=== PATIENT | male | born 1955 | race Hispanic/Latino ===

== ENCOUNTER 2019-04-15 19:19 | Inpatient (IN) | payer MEDICARE, OTHER ==
[~2019-04-15] VITALS: Ht 167.6 cm; Wt 92.1 kg
[2019-04-15 20:31] LABS: BASOPHILS # (AUTO) 0.1 (0.0-0.1); BASOPHILS % 0.9 % (0.0-1.0); EOSINOPHILS # (AUTO) 1.3 (0.0-0.4); EOSINOPHILS % 16.8 % (0.0-6.0); HEMATOCRIT 31.1 % (38.2-49.6); HEMOGLOBIN 10.3 g/dL (14.0-18.0); LYMPHOCYTES # (AUTO) 1.2 (1.0-3.2); LYMPHOCYTES % 15.2 % (18.0-39.1); MEAN CORPUSCULAR HEMOGLOBIN 31.4 pg (28-32); MEAN CORPUSCULAR HGB CONC 33.1 g/dL (31-35); MEAN CORPUSCULAR VOLUME 94.8 fL (81-99); MONOCYTES # (AUTO) 0.7 (0.2-0.8); MONOCYTES % 8.8 % (4.4-11.3); NEUTROPHILS # (AUTO) 4.6 (2.1-6.9); PLATELET COUNT 166 x10e3/uL (140-360); RED BLOOD COUNT 3.28 x10e6/uL (4.3-5.7); RED CELL DISTRIBUTION WIDTH 16.8 % (11.7-14.4)
[2019-04-15 21:15] LABS: ALBUMIN 3.5 g/dL (3.5-5.0); ALBUMIN/GLOBULIN RATIO 0.8 (0.8-2.0); ANION GAP 16.7 mmol/L (8-16); CALCIUM 9.2 mg/dL (8.4-10.2); CREATININE, SERUM 4.08 mg/dL (0.72-1.25)
[2019-04-15 21:18] LABS: POTASSIUM 5.7 mmol/L (3.5-5.1)
[2019-04-15] MEDS ORDERED: DEXTROSE 50% SYRINGE 50 ML IV STA (21:37)
[2019-04-15] MEDS ORDERED: INSULIN REGULAR, HUMAN 100 UNIT/1 ML 3ML VIAL IV ONE (21:45)
[2019-04-15] MEDS ORDERED: SOD POLYSTYRENE SULFONATE SUSP 15 GM/60 ML BTL PO ONE (21:45)
[2019-04-15] MEDS ORDERED: ASPIR 8181 MG PO (21:48)
[2019-04-15] MEDS ORDERED: ALLOPURINOL100 MG PO (21:49)
[2019-04-15] MEDS ORDERED: ARICEPT5 MG PO (21:49)
[2019-04-15] MEDS ORDERED: GABAPENTIN100 MG PO (21:49)
[2019-04-15] MEDS ORDERED: CALCITRIOL0.25 MCG PO (21:49)
[2019-04-15] MEDS ORDERED: LACTULOSE20 GM/30 M PO (21:50)
[2019-04-15] MEDS ORDERED: LEVEMIR100 UNIT/1 SC (21:50)
[2019-04-15] MEDS ORDERED: METOPROLOL SUCC50 MG PO (21:51)
[2019-04-15] MEDS ORDERED: NIFEDIPINE ER30 M1 PO (21:51)
[2019-04-15] MEDS ORDERED: VITAMIN E400 UNIT PO (21:52)
[2019-04-15] MEDS ORDERED: PANTOPRAZOLE SO40 MG PO (21:52)
[2019-04-15] MEDS ORDERED: NEPHRO-VITE TABL1 EA PO (21:52)
[2019-04-15] MEDS ORDERED: PRAVASTATIN SOD40 MG PO (21:53)
[2019-04-15] MEDS ORDERED: ULTRAM50 MG PO (21:54)
[2019-04-15] MEDS ORDERED: LISINOPRIL10 MG PO (21:54)
[2019-04-15] MEDS ORDERED: LASIX40 MG PO (21:55)
[2019-04-15] MEDS ORDERED: ALDACTONE25 MG PO (21:56)
[2019-04-15] MEDS ORDERED: METOLAZONE5 MG PO (21:56)
[2019-04-15] MEDS ORDERED: SODIUM BICARBONATE 8.4% 50 ML VIAL IV STA ×2 (22:00→23:12)
[2019-04-15 22:06] LABS: CREATINE KINASE MB 2.7 ng/mL (0-5.0)
[2019-04-15] MEDS ORDERED: SODIUM BICARBONATE 8.4% SYRING 50 ML ONE (22:06)
[2019-04-15] MEDS ORDERED: INSULIN REGULAR, HUMAN 100 UNIT/1 ML 3ML VIAL ONE (22:08)
[2019-04-15] MEDS ORDERED: SODIUM BICARBONATE 8.4% INJ 50 ML SYR IV STA (22:19)
--- NOTE | 2019-04-15 22:19 | NUR ---
spoke with dr pham about sodium bicarb order for pts hyperkalemia, new orders rec'd
--- OUTSIDE RECORDS SUMMARY | 2019-04-15 22:19 | XMS REPORT | Continuity of Care Document ---
Author Author [facility] Organization [facility] Address Unknown Phone Unavailable Care Team Providers Care Emotional Support Teacher Name Role Phone MD Ethan, Meseret VARGAS Unavailable Insurance Providers Payer name Policy type / Coverage type Policy ID Covered republican ID Policy Stone [employer] [place]IC[place] [employer] [place] [employer] [place] [employer] [place] [place]) [employer] [place] [employer] [place] [employer] [place] [employer] [place] [employer] [place] [employer] [place] [employer] [place] Encounters Encounter Performer Location Date Office Visit Meseret Long MD [facility] December 08, 2013 Problems Problem Effective Dates Problem Status DIAB W/O MENTION COMP TYPE II/UNS TYPE UNCNTRL Active OTHER AND UNSPECIFIED HYPERLIPIDEMIA Active CAD Active GERD Active DIABETES MELLITUS, TYPE II, UNCONTROLLED, WITH COMPLICATIONS Jun 21, 2013 Active HYPERTENSION, BENIGN ESSENTIAL Jun 21, 2013 Active CORONARY ATHEROSCLEROSIS, ARTERY BYPASS GRAFT Jun 21, 2013 Active CYSTITIS, ACUTE Jun 21, 2013 Active DYSPEPSIA, CHRONIC Jun 21, 2013 Active SCREENING, COLON CANCER Jun 21, 2013 Active SEXUALLY TRANSMITTED DISEASE, EXPOSURE TO Jun 21, 2013 Active HYPERTROPHY PROSTATE W/O UR OBST & OTH LUTS Jun 21, 2013 Active PERIPHERAL VASCULAR DISEASE Jun 21, 2013 Active PERS HX NONCOMPLIANCE W/MED TX PRS HAZARDS HLTH Jun 21, 2013 Active PREVENTIVE HEALTH CARE Nov 01, 2013 Active SPECIAL SCREENING 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ATE Nov 01, 2013 Active SCREENING FOR GLAUCOMA Nov 01, 2013 Active BODY MASS INDEX 32.0-32.9 ADULT Nov 01, 2013 Active UPPER RESPIRATORY INFECTION December 08, 2013 Active Procedures Date Description Comments Jun 21, 2013 smoking status never smoker Nov 01, 2013 diabetic foot check yes Medications Medication Instructions Start Date Status GLIPIZIDE-METFORMIN HCL 5-500 MG TABS 2 tablets twice daily Active CLOPIDOGREL BISULFATE 75 MG TABS 1 tablet daily Active METOPROLOL TARTRATE 50 MG TABS 1 tablet daily Active ASPIRIN LOW DOSE 81 MG TABS 1 tablet daily Active OMEPRAZOLE 40 MG CPDR take 1 tab before meals Feb 09, 2013 Active CIPROFLOXACIN HCL 500 MG TABS Take one tablet every 12 hours Jun 21, 2013 Inactive TRAMADOL HCL 50 MG TABS 1 tablets every 6-8 hours as needed Jun 21, 2013 Inactive STRIPS check fs Q/DAY Jul 12, 2013 Active PRAVASTATIN SODIUM 80 MG TABS Take one tablet by mouth once a day Jul 12, 2013 Active LANTUS SOLOSTAR 100 UNIT/ML SOLN apply 30 units at night Nov 01, 2013 Active AMLODIPINE BESY-BENAZEPRIL HCL 10-40 MG CAPS Take one tablet by mouth once a day Nov 29, 2013 Active XYZAL 5 MG TABS Take one tablet by mouth once a day as needed itchiness Jun 21, 2013 Inactive NOVOLOG 100 UNIT/ML SOLN apply 5-10 units before meals Nov 29, 2013 Active BD INSULIN SYRINGE ULTRAFINE 31G X 5/16" 1 ML MISC use as directed Nov 29, 2013 Active CORTISPORIN 3.5-55182-2 SOLN apply 4 gtt in affected ear twice a day for 1 week Nov 29, 2013 Active ZITHROMAX Z-STIVEN 250 MG TABS use as directed December 08, 2013 Active DIABETIC TUSSIN 100 MG/5ML LIQD Take 7 ml every 6 hours as needed for cough December 08, 2013 Active XYZAL 5 MG TABS Take one tablet by mouth once a day as needed runny nose December 08, 2013 Active Immunizations Vaccine Date Status influenza immunization (Flu Vax) has been administered Jun 09, 2012 completed pneumococcal immunization administered Aug 27, 2012 completed influenza immunization (Flu Vax) has been administered Jul 12, 2013 completed Vital Signs Date Description Test Result Jun 21, 2013 respiratory rate E&M - 9279-1 RESP RATE 16 /min Jun 21, 2013 height E&M - 8302-2 HEIGHT 66 in Jun 21, 2013 blood pressure, systolic - 8480-6 BP SYSTOLIC 150 mm Hg Jun 21, 2013 blood pressure, diastolic - 8462-4 BP DIASTOLIC 86 mm Hg Jun 21, 2013 pulse rate E&M - 8867-4 PULSE RATE 70 /min Jun 21, 2013 weight Devyn Greene-9 WEIGHT 206.38 lb Jun 21, 2013 blood pressure, systolic, second observation BP SYS #2 145 mm Hg Jun 21, 2013 blood pressure, diastolic, second observation BP KRISTEL #2 80 mm Hg Jul 12, 2013 weight Devyn - Sergio9 WEIGHT 207.50 lb Jul 12, 2013 respiratory rate E&M - 9279-1 RESP RATE 12 /min Jul 12, 2013 pulse rate E&M - 8867-4 PULSE RATE 67 /min Jul 12, 2013 blood pressure, systolic - 8480-6 BP SYSTOLIC 140 mm Hg Jul 12, 2013 blood pressure, diastolic - 8462-4 BP DIASTOLIC 80 mm Hg Nov 01, 2013 respiratory rate E&M - 9279-1 RESP RATE 16 /min Nov 01, 2013 pulse rate E&M - 8867-4 PULSE RATE 70 /min Nov 01, 2013 blood pressure, systolic - 8480-6 BP SYSTOLIC 148 mm Hg Nov 01, 2013 blood pressure, diastolic - 8462-4 BP DIASTOLIC 84 mm Hg Nov 01, 2013 weight Devyn Ng WEIGHT 202 lb Nov 01, 2013 blood pressure, systolic, second observation BP SYS #2 148 mm Hg Nov 01, 2013 blood pressure, diastolic, second observation BP KRISTEL #2 78 mm Hg Nov 29, 2013 weight Devyn Greene-9 WEIGHT 206 lb Nov 29, 2013 respiratory rate E&M - 9279-1 RESP RATE 16 /min Nov 29, 2013 blood pressure, systolic - 8480-6 BP SYSTOLIC 138 mm Hg Nov 29, 2013 blood pressure, diastolic - 8462-4 BP DIASTOLIC 79 mm Hg Nov 29, 2013 pulse rate E&M - 8867-4 PULSE RATE 65 /min December 08, 2013 temperature E&M TEMPERATURE 98.7 deg f December 08, 2013 respiratory rate E&M - 9279-1 RESP RATE 16 /min December 08, 2013 weight Devyn Greene-9 WEIGHT 205 lb December 08, 2013 blood pressure, systolic - 8480-6 BP SYSTOLIC 140 mm Hg December 08, 2013 blood pressure, diastolic - 8462-4 BP DIASTOLIC 87 mm Hg December 08, 2013 pulse rate E&M - 8867-4 PULSE RATE 75 /min Results Date Description Test Name Value Reference Interpretation Status Nov 03, 2013 hemoglobin, blood HGB 14.9 g/dL 14.0-18.0 Nov 03, 2013 hematocrit, blood HCT 43.9 % 42.0-54.0 Nov 03, 2013 platelet count PLATELETS 200 K/CMM /mm3 133-450 Nov 03, 2013 hemoglobin, blood HGB 14.9 g/dL 14.0-18.0 Nov 03, 2013 hematocrit, blood HCT 43.9 % 42.0-54.0 Nov 03, 2013 platelet count PLATELETS 200 K/CMM /mm3 133-450 Nov 03, 2013 hemoglobin, blood HGB 14.9 g/dL 14.0-18.0 Nov 03, 2013 hematocrit, blood HCT 43.9 % 42.0-54.0 Nov 03, 2013 platelet count PLATELETS 200 K/CMM /mm3 133-450 Nov 03, 2013 hemoglobin, blood HGB 14.9 g/dL 14.0-18.0 Nov 03, 2013 hematocrit, blood HCT 43.9 % 42.0-54.0 Nov 03, 2013 platelet count PLATELETS 200 K/CMM /mm3 133-450 Nov 03, 2013 hemoglobin A1C, blood, as % of total hemoglobin HGBA1C 12.5 % <=5.6 High Nov 03, 2013 thyroid stimulating hormone, serum TSH 0.900 uIU/mL 0.360-3.740 Nov 03, 2013 cholesterol, serum CHOLESTEROL 212 mg/dl <=199 High Nov 03, 2013 triglyceride, serum, fasting TRIGLYCERIDE 173 mg/dl <=149 High Nov 03, 2013 HDL cholesterol, serum HDL 52 mg/dl >=61 Low Nov 03, 2013 sodium, serum SODIUM 135 MEQ/L mmol/L 135-145 Nov 03, 2013 potassium, serum POTASSIUM 4.0 MEQ/L mmol/L 3.5-5.1 Nov 03, 2013 creatinine, serum CREATININE 0.8 mg/dL 0.5-1.4 Nov 03, 2013 urea nitrogen, blood BUN 17 mg/dL 7-22 Nov 03, 2013 urea nitrogen/creatinine ratio, serum BUN/CREAT 21 null 6-25 Nov 03, 2013 albumin, serum ALBUMIN 3.6 g/dL 3.5-5.0 Nov 03, 2013 calcium, serum CALCIUM 8.7 mg/dL 8.5-10.5 Nov 03, 2013 alanine aminotransferase (SGPT), serum SGPT (ALT) 18 U/L 0-65 Nov 03, 2013 aspartate aminotransferase (SGOT), serum SGOT (AST) 10 U/L 0-37 Nov 03, 2013 alkaline phosphatase, serum ALK PHOS 113 U/L 39-136 Nov 03, 2013 prostate specific antigen PSA 0.34 ng/mL 0.00-4.00 Nov 03, 2013 hemoglobin A1C, blood, as % of total hemoglobin HGBA1C 12.5 % <=5.6 High Nov 03, 2013 thyroid stimulating hormone, serum TSH 0.900 uIU/mL 0.360-3.740 Nov 03, 2013 cholesterol, serum CHOLESTEROL 212 mg/dl <=199 High Nov 03, 2013 triglyceride, serum, fasting TRIGLYCERIDE 173 mg/dl <=149 High Nov 03, 2013 HDL cholesterol, serum HDL 52 mg/dl >=61 Low Nov 03, 2013 sodium, serum SODIUM 135 MEQ/L mmol/L 135-145 Nov 03, 2013 potassium, serum POTASSIUM 4.0 MEQ/L mmol/L 3.5-5.1 Nov 03, 2013 creatinine, serum CREATININE 0.8 mg/dL 0.5-1.4 Nov 03, 2013 urea nitrogen, blood BUN 17 mg/dL 7-22 Nov 03, 2013 urea nitrogen/creatinine ratio, serum BUN/CREAT 21 null 6-25 Nov 03, 2013 albumin, serum ALBUMIN 3.6 g/dL 3.5-5.0 Nov 03, 2013 calcium, serum CALCIUM 8.7 mg/dL 8.5-10.5 Nov 03, 2013 alanine aminotransferase (SGPT), serum SGPT (ALT) 18 U/L 0-65 Nov 03, 2013 aspartate aminotransferase (SGOT), serum SGOT (AST) 10 U/L 0-37 Nov 03, 2013 alkaline phosphatase, serum ALK PHOS 113 U/L 39-136 Nov 03, 2013 prostate specific antigen PSA 0.34 ng/mL 0.00-4.00 Nov 03, 2013 hemoglobin A1C, blood, as % of total hemoglobin HGBA1C 12.5 % <=5.6 High Nov 03, 2013 thyroid stimulating hormone, serum TSH 0.900 uIU/mL 0.360-3.740 Nov 03, 2013 cholesterol, serum CHOLESTEROL 212 mg/dl <=199 High Nov 03, 2013 triglyceride, serum, fasting TRIGLYCERIDE 173 mg/dl <=149 High Nov 03, 2013 HDL cholesterol, serum HDL 52 mg/dl >=61 Low Nov 03, 2013 LDL cholesterol, serum LDL 125 mg/dl <=99 High Nov 03, 2013 sodium, serum SODIUM 135 MEQ/L mmol/L 135-145 Nov 03, 2013 potassium, serum POTASSIUM 4.0 MEQ/L mmol/L 3.5-5.1 Nov 03, 2013 creatinine, serum CREATININE 0.8 mg/dL 0.5-1.4 Nov 03, 2013 urea nitrogen, blood BUN 17 mg/dL 7-Nov 03, 2013 urea nitrogen/creatinine ratio, serum BUN/CREAT 21 null -Nov 03, 2013 albumin, serum ALBUMIN 3.6 g/dL 3.5-5.0 Nov 03, 2013 calcium, serum CALCIUM 8.7 mg/dL 8.5-10.5 Nov 03, 2013 alanine aminotransferase (SGPT), serum SGPT (ALT) 18 U/L 0-65 Nov 03, 2013 aspartate aminotransferase (SGOT), serum SGOT (AST) 10 U/L 0-37 Nov 03, 2013 alkaline phosphatase, serum ALK PHOS 113 U/L 39-136 Nov 03, 2013 prostate specific antigen PSA 0.34 ng/mL 0.00-4.00 Oct 10, 2011 occult blood, stool (E&M) HEMOCCULT Done null Jun 23, 2013 hemoglobin A1C, blood, as % of total hemoglobin HGBA1C 12.0 % <=5.6 High Jun 23, 2013 cholesterol, serum CHOLESTEROL 245 mg/dl <=199 High Jun 23, 2013 triglyceride, serum, fasting TRIGLYCERIDE 189 mg/dl <=149 High Jun 23, 2013 HDL cholesterol, serum HDL 47 mg/dl >=61 Low Jun 23, 2013 LDL cholesterol, serum LDL 160 mg/dl <=99 High Jun 23, 2013 sodium, serum SODIUM 136 MEQ/L mmol/L 135-145 Jun 23, 2013 potassium, serum POTASSIUM 4.4 MEQ/L mmol/L 3.5-5.1 Jun 23, 2013 creatinine, serum CREATININE 0.8 mg/dL 0.5-1.4 Jun 23, 2013 urea nitrogen, blood BUN 17 mg/dL 02-28Jun 23, 2013 urea nitrogen/creatinine ratio, serum BUN/CREAT 21 null -Jun 23, 2013 albumin, serum ALBUMIN 4.0 g/dL 3.5-5.0 Jun 23, 2013 calcium, serum CALCIUM 9.6 mg/dL 8.5-10.5 Jun 23, 2013 alanine aminotransferase (SGPT), serum SGPT (ALT) 28 U/L 0-65 Jun 23, 2013 aspartate aminotransferase (SGOT), serum SGOT (AST) 12 U/L 0-37 Jun 23, 2013 alkaline phosphatase, serum ALK PHOS 136 U/L 39-136 Jun 23, 2013 prostate specific antigen PSA 0.49 ng/mL 0.00-4.00 Nov 03, 2013 hemoglobin A1C, blood, as % of total hemoglobin HGBA1C 12.5 % <=5.6 High Nov 03, 2013 thyroid stimulating hormone, serum TSH 0.900 uIU/mL 0.360-3.740 Nov 03, 2013 cholesterol, serum CHOLESTEROL 212 mg/dl <=199 High Nov 03, 2013 triglyceride, serum, fasting TRIGLYCERIDE 173 mg/dl <=149 High Nov 03, 2013 HDL cholesterol, serum HDL 52 mg/dl >=61 Low Nov 03, 2013 LDL cholesterol, serum LDL 125 mg/dl <=99 High Nov 03, 2013 sodium, serum SODIUM 135 MEQ/L mmol/L 135-145 Nov 03, 2013 potassium, serum POTASSIUM 4.0 MEQ/L mmol/L 3.5-5.1 Nov 03, 2013 creatinine, serum CREATININE 0.8 mg/dL 0.5-1.4 Nov 03, 2013 urea nitrogen, blood BUN 17 mg/dL 7-22 Nov 03, 2013 urea nitrogen/creatinine ratio, serum BUN/CREAT 21 null 6-25 Nov 03, 2013 albumin, serum ALBUMIN 3.6 g/dL 3.5-5.0 Nov 03, 2013 calcium, serum CALCIUM 8.7 mg/dL 8.5-10.5 Nov 03, 2013 alanine aminotransferase (SGPT), serum SGPT (ALT) 18 U/L 0-65 Nov 03, 2013 aspartate aminotransferase (SGOT), serum SGOT (AST) 10 U/L 0-37 Nov 03, 2013 alkaline phosphatase, serum ALK PHOS 113 U/L 39-136 Nov 03, 2013 prostate specific antigen PSA 0.34 ng/mL 0.00-4.00 Jun 21, 2013 urine color UA COLOR Light Yellow null Yellow Jun 21, 2013 urine color UA COLOR Light Yellow null Yellow Jun 21, 2013 urine color UA COLOR Light Yellow null Yellow Jun 23, 2013 urine color UA COLOR Yellow null Yellow Jun 23, 2013 rapid plasma reagin antibody, serum RPR Non Reactive null Non Reactive
--- OUTSIDE RECORDS SUMMARY | 2019-04-15 22:19 | XMS REPORT | Continuity of Care Document ---
Author Author [facility] Organization [facility] Address Unknown Phone Unavailable Care Team Providers Care Injection Mold Technician Name Role Phone MD Ethan, Meseret VARGAS [...] Location Date Office Visit Meseret Long MD [facility] Apr 04, 2014 Problems Problem Effective Dates Problem Status DIAB W/O MENTION COMP TYPE II/UNS TYPE UNCNTRL Inactive OTHER AND UNSPECIFIED HYPERLIPIDEMIA Active CAD Active GERD Active DIABETES MELLITUS, TYPE II, UNCONTROLLED, WITH COMPLICATIONS Jun 21, 2013 Active HYPERTENSION, BENIGN ESSENTIAL Jun 21, 2013 Active CORONARY ATHEROSCLEROSIS, ARTERY BYPASS GRAFT Jun 21, 2013 Active CYSTITIS, ACUTE Jun 21, 2013 Inactive DYSPEPSIA, CHRONIC Jun 21, 2013 Active SCREENING, COLON CANCER Jun 21, 2013 Active SEXUALLY TRANSMITTED DISEASE, EXPOSURE TO Jun 21, 2013 Inactive HYPERTROPHY PROSTATE W/O UR OBST & OTH [...] Active UPPER RESPIRATORY INFECTION December 08, 2013 Inactive CHEST PAIN NOS Mar 07, 2014 Inactive CORONARY ATHEROSCLEROSIS, AUTOLOGOUS VEIN BYPASS GRAFT Mar 13, 2014 Active ATHEROSCLEROSIS OF [place] ARTERIES OF THE EXTREMITIES WITH INTERMITTENT CLAUDICATION Mar 13, 2014 Active Procedures Date Description Comments Jun 21, 2013 smoking status never smoker Nov 01, 2013 diabetic foot check yes Mar 07, 2014 smoking status Never smoker Apr 04, 2014 smoking status Never smoker Apr 04, 2014 depression, criteria for diagnosis, step 1 N Apr 04, 2014 depression, criteria for diagnosis, step 2 N Medications Medication Instructions Start Date Status CLOPIDOGREL BISULFATE 75 MG TABS 1 tablet daily Active ASPIRIN [...] once a day Jul 12, 2013 Active AMLODIPINE BESY-BENAZEPRIL HCL 10-40 MG [...] as directed Nov 29, 2013 Active CORTISPORIN 3.5-38606-3 SOLN apply 4 gtt in affected ear twice a day for 1 week Nov 29, 2013 Active GLIPIZIDE-METFORMIN HCL 5-500 MG TABS 2 tablets twice daily December 19, 2013 Active DIABETIC TUSSIN 100 MG/5ML LIQD Take 7 ml every 6 hours as needed for cough December 08, 2013 Inactive ZITHROMAX Z-STIVEN 250 MG TABS use as directed December 08, 2013 Inactive XYZAL 5 MG TABS Take one tablet by mouth once a day as needed runny nose December 08, 2013 Inactive METOPROLOL SUCCINATE ER 100 MG [id number] take one tablet by mouth daily Jan 24, 2014 Active LANTUS SOLOSTAR 100 UNIT/ML SOLN apply 50 units at night Nov 01, 2013 Active BD INSULIN SYRINGE 31G X 5/16" 0.3 ML MISC use as diredted Nov 01, 2013 Active Immunizations Vaccine Date Status influenza immunization (Flu Vax) has been administered Jun 09, 2012 completed pneumococcal immunization administered Aug 27, 2012 completed influenza immunization (Flu Vax) has been administered Jul 12, 2013 completed Vital Signs Date Description Test Result Jun 21, 2013 respiratory rate E&M RESP RATE 16 /min Jun 21, 2013 height E&M HEIGHT 66 in Jun 21, 2013 blood pressure, systolic BP SYSTOLIC 150 mm Hg Jun 21, 2013 blood pressure, diastolic BP DIASTOLIC 86 mm Hg Jun 21, 2013 pulse rate E&M PULSE RATE 70 /min Jun 21, 2013 weight E&M WEIGHT 206.38 lb Jun 21, 2013 blood pressure, systolic, second observation BP SYS #2 145 mm Hg Jun 21, 2013 blood pressure, diastolic, second observation BP KRISTEL #2 80 mm Hg Jul 12, 2013 weight E&M WEIGHT 207.50 lb Jul 12, 2013 respiratory rate E&M RESP RATE 12 /min Jul 12, 2013 pulse rate E&M PULSE RATE 67 /min Jul 12, 2013 blood pressure, systolic BP SYSTOLIC 140 mm Hg Jul 12, 2013 blood pressure, diastolic BP DIASTOLIC 80 mm Hg Nov 01, 2013 respiratory rate E&M RESP RATE 16 /min Nov 01, 2013 pulse rate E&M PULSE RATE 70 /min Nov 01, 2013 blood pressure, systolic BP SYSTOLIC 148 mm Hg Nov 01, 2013 blood pressure, diastolic BP DIASTOLIC 84 mm Hg Nov 01, 2013 weight E&M WEIGHT 202 lb Nov 01, 2013 blood pressure, systolic, second observation BP SYS #2 148 mm Hg Nov 01, 2013 blood pressure, diastolic, second observation BP KRISTEL #2 78 mm Hg Nov 29, 2013 weight E&M WEIGHT 206 lb Nov 29, 2013 respiratory rate E&M RESP RATE 16 /min Nov 29, 2013 blood pressure, systolic BP SYSTOLIC 138 mm Hg Nov 29, 2013 blood pressure, diastolic BP DIASTOLIC 79 mm Hg Nov 29, 2013 pulse rate E&M PULSE RATE 65 /min December 08, 2013 temperature E&M TEMPERATURE 98.7 deg f December 08, 2013 respiratory rate E&M RESP RATE 16 /min December 08, 2013 weight E&M WEIGHT 205 lb December 08, 2013 blood pressure, systolic BP SYSTOLIC 140 mm Hg December 08, 2013 blood pressure, diastolic BP DIASTOLIC 87 mm Hg December 08, 2013 pulse rate E&M PULSE RATE 75 /min Mar 07, 2014 respiratory rate E&M RESP RATE 16 /min Mar 07, 2014 temperature E&M TEMPERATURE 98.1 deg f Mar 07, 2014 weight E&M WEIGHT 210 lb Mar 07, 2014 blood pressure, systolic BP SYSTOLIC 140 mm Hg Mar 07, 2014 blood pressure, diastolic BP DIASTOLIC 87 mm Hg Mar 07, 2014 pulse rate E&M PULSE RATE 90 /min Apr 04, 2014 height E&M HEIGHT 66 in Apr 04, 2014 respiratory rate E&M RESP RATE 16 /min Apr 04, 2014 blood pressure, systolic BP SYSTOLIC 139 mm Hg Apr 04, 2014 blood pressure, diastolic BP DIASTOLIC 82 mm Hg Apr 04, 2014 pulse rate E&M PULSE RATE 62 /min Apr 04, 2014 temperature E&M TEMPERATURE 97.9 deg f Apr 04, 2014 weight E&M WEIGHT 209 lb Results Date Description Test Name Value Reference [...] 2013 cholesterol, serum CHOLESTEROL 212 mg/dl <=199 Nov 03, 2013 triglyceride, serum, fasting TRIGLYCERIDE 173 mg/dl <=149 Nov 03, 2013 HDL cholesterol, serum HDL 52 mg/dl >=61 Low Nov 03, 2013 sodium, serum SODIUM 135 MEQ/L mmol/L 135-145 Nov 03, 2013 potassium, serum POTASSIUM 4.0 MEQ/L mmol/L 3.5-5.1 Nov 03, 2013 creatinine, serum CREATININE 0.8 mg/dL 0.5-1.4 Nov 03, 2013 urea nitrogen, blood BUN 17 mg/dL 02-28Nov 03, 2013 urea nitrogen/creatinine ratio, serum BUN/CREAT [...] 2013 cholesterol, serum CHOLESTEROL 212 mg/dl <=199 Nov 03, 2013 triglyceride, serum, fasting TRIGLYCERIDE 173 mg/dl <=149 High Nov 03, 2013 HDL cholesterol, serum HDL 52 mg/dl >=61 Low Nov 03, 2013 sodium, serum SODIUM 135 MEQ/L mmol/L 135-145 Nov 03, 2013 potassium, serum POTASSIUM 4.0 MEQ/L mmol/L 3.5-5.1 Nov 03, 2013 creatinine, serum CREATININE 0.8 mg/dL 0.5-1.4 Nov 03, 2013 urea nitrogen, blood BUN 17 mg/dL 02-28Nov 03, 2013 urea nitrogen/creatinine ratio, serum BUN/CREAT [...] specific antigen PSA 0.34 ng/mL 0.00-4.00 Jun 23, 2013 hemoglobin A1C, blood, as [...] 2013 urea nitrogen, blood BUN 17 mg/dL -Jun 23, 2013 urea nitrogen/creatinine ratio, serum BUN/CREAT 21 null 6-Jun 23, 2013 albumin, serum ALBUMIN 4.0 g/dL [...] 2013 urea nitrogen, blood BUN 17 mg/dL 02-28Nov 03, 2013 urea nitrogen/creatinine ratio, serum BUN/CREAT 21 null 6-Nov 03, 2013 albumin, serum ALBUMIN 3.6 g/dL 3.5-5.0 Nov 03, 2013 calcium, serum CALCIUM 8.7 mg/dL 8.5-10.5 Nov 03, 2013 alanine aminotransferase (SGPT), serum SGPT (ALT) 18 U/L 0-65 Nov 03, 2013 aspartate aminotransferase (SGOT), serum SGOT (AST) 10 U/L 0-37 Nov 03, 2013 alkaline phosphatase, serum ALK PHOS 113 U/L 39-136 Nov 03, 2013 prostate specific antigen PSA 0.34 ng/mL 0.00-4.00 Mar 07, 2014 hemoglobin A1C, blood, as % of total hemoglobin HGBA1C 12.1 % <=5.6 High Mar 07, 2014 cholesterol, serum CHOLESTEROL 241 mg/dl <=199 High Mar 07, 2014 triglyceride, serum, fasting TRIGLYCERIDE 160 mg/dl <=149 High Mar 07, 2014 HDL cholesterol, serum HDL 59 mg/dl >=61 Low Mar 07, 2014 LDL cholesterol, serum LDL 150 mg/dl <=99 High Mar 07, 2014 sodium, serum SODIUM 138 MEQ/L mmol/L 135-145 Mar 07, 2014 potassium, serum POTASSIUM 3.9 MEQ/L mmol/L 3.5-5.1 Mar 07, 2014 creatinine, serum CREATININE 0.9 mg/dL 0.5-1.4 Mar 07, 2014 urea nitrogen, blood BUN 17 mg/dL 7-Mar 07, 2014 urea nitrogen/creatinine ratio, serum BUN/CREAT 19 null 6-25 Mar 07, 2014 albumin, serum ALBUMIN 3.9 g/dL 3.5-5.0 Mar 07, 2014 calcium, serum CALCIUM 9.2 mg/dL 8.5-10.5 Mar 07, 2014 alanine aminotransferase (SGPT), serum SGPT (ALT) 21 U/L 0-65 Mar 07, 2014 aspartate aminotransferase (SGOT), serum SGOT (AST) 10 U/L 0-37 Mar 07, 2014 alkaline phosphatase, serum ALK PHOS 123 U/L 39-136 Jun 21, 2013 urine color UA COLOR Light Yellow null Yellow Jun 21, 2013 urine color UA COLOR Light Yellow null Yellow Jun 21, 2013 urine color UA COLOR Light Yellow null Yellow Jun 23, 2013 urine color UA COLOR Yellow null Yellow Jun 23, 2013 rapid plasma reagin antibody, serum RPR Non Reactive null Non Reactive Mar 07, 2014 rapid plasma reagin antibody, serum RPR Non Reactive null Non Reactive Oct 10, 2011 occult blood, stool (E&M) HEMOCCULT Done null
--- OUTSIDE RECORDS SUMMARY | 2019-04-15 22:19 | XMS REPORT | Continuity of Care Document ---
Author Author [facility] Organization [facility] Address Unknown Phone Unavailable Care Team Providers Care Systems Project Manager Name Role Phone MD Ethan, Meseret VARGAS Unavailable Insurance Providers Payer name Policy type / Coverage type Policy ID Covered constitution party ID Policy Stone [employer] [place] (MEDICARE REPLACEMENT [...] REPLACEMENT HMO) Encounters Encounter Performer Location Date Lab Report Meseret Long MD [facility] Mar 07, 2014 Problems Problem Effective Dates Problem Status [...] UPPER RESPIRATORY INFECTION December 08, 2013 Active CHEST PAIN NOS Mar 07, 2014 Active Procedures Date Description Comments Jun 21, 2013 smoking status never smoker Nov 01, 2013 diabetic foot check yes Mar 07, 2014 smoking status Never smoker Medications Medication Instructions Start Date Status CLOPIDOGREL [...] as directed Nov 29, 2013 Active CORTISPORIN 3.5-40838-4 SOLN apply 4 gtt in affected ear twice a day for 1 week Nov 29, 2013 Active GLIPIZIDE-METFORMIN HCL 5-500 MG TABS 2 tablets twice daily December 19, 2013 Active METOPROLOL SUCCINATE ER 50 MG [id number] Take one tablet by mouth once a day every 24 hours Jan 24, 2014 Active DIABETIC TUSSIN 100 MG/5ML LIQD Take 7 ml every 6 hours as needed for cough December 08, 2013 Inactive ZITHROMAX Z-STIVEN 250 MG TABS use as directed December 08, 2013 Inactive XYZAL 5 MG TABS Take one tablet by mouth once a day as needed runny nose December 08, 2013 Inactive Immunizations Vaccine Date Status influenza immunization (Flu [...] pulse rate E&M PULSE RATE 90 /min Results Date Description Test Name Value [...] 2013 urea nitrogen, blood BUN 17 mg/dL -Nov 03, 2013 urea nitrogen/creatinine ratio, serum BUN/CREAT [...] 2014 urea nitrogen, blood BUN 17 mg/dL 7-22 Mar 07, 2014 urea nitrogen/creatinine ratio, serum BUN/CREAT [...]
--- OUTSIDE RECORDS SUMMARY | 2019-04-15 22:19 | XMS REPORT | Continuity of Care Document ---
Author Author [facility] Organization [facility] Address Unknown Phone Unavailable Care Team Providers Care Esl Teacher Name Role Phone MD Ethan, Meseret VARGAS Unavailable Insurance Providers Payer name Policy type / Coverage type Policy ID Covered alliance party ID Policy [employer] [place] (MEDICARE [...] Location Date Office Visit Meseret Long MD [facility] Mar 07, 2014 Problems Problem [...] as directed Nov 29, 2013 Active CORTISPORIN [id number] SOLN apply 4 gtt in affected ear twice a day for 1 week Nov 29, 2013 Active GLIPIZIDE-METFORMIN HCL 5-500 MG TABS 2 tablets twice daily December 19, 2013 Active METOPROLOL SUCCINATE ER 50 MG [id number] Take one tablet by mouth once a [...]
--- OUTSIDE RECORDS SUMMARY | 2019-04-15 22:19 | XMS REPORT | Continuity of Care Document ---
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 Name Role Phone [employer] Unavailable Unavailable Problems Problem Status Onset Date Classification Date Reported Comments Source PROSTATE NEOPLASM SCREENING Active 10/13/2014 [facility] 01/11/2015 [facility] DIABETIC NEUROPATHY Active 10/13/2014 Condition 01/11/2015 [facility] BRONCHITIS Inactive 05/12/2014 Condition 01/11/2015 [facility] CORONARY ATHEROSCLEROSIS, AUTOLOGOUS VEIN BYPASS GRAFT Inactive 03/13/2014 Condition 01/11/2015 [facility] ATHEROSCLEROSIS OF [place] ARTERIES OF THE EXTREMITIES WITH INTERMITTENT CLAUDICATION Inactive 03/13/2014 Condition 01/11/2015 [facility] CHEST PAIN NOS Inactive 03/07/2014 Condition 01/11/2015 [facility] UPPER RESPIRATORY INFECTION Inactive 12/08/2013 Condition 01/11/2015 [facility] PREVENTIVE HEALTH CARE Active 11/01/2013 Condition 01/11/2015 [facility] SPECIAL SCREENING 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ATE Inactive 11/01/2013 Condition 01/11/2015 [facility] SCREENING FOR GLAUCOMA Active 11/01/2013 Condition 01/11/2015 [facility] BODY MASS INDEX 32.0-32.9 ADULT Active 11/01/2013 Condition 01/11/2015 [facility] DIABETES MELLITUS, TYPE II, UNCONTROLLED, WITH COMPLICATIONS Active 06/21/2013 Condition 01/11/2015 [facility] HYPERTENSION, BENIGN ESSENTIAL Active 06/21/2013 Condition 01/11/2015 [facility] CORONARY ATHEROSCLEROSIS, ARTERY BYPASS GRAFT Active 06/21/2013 Condition 01/11/2015 [facility] CYSTITIS, ACUTE Inactive 06/21/2013 Condition 01/11/2015 [facility] DYSPEPSIA, CHRONIC Active 06/21/2013 Condition 01/11/2015 [facility] SCREENING, COLON CANCER Active 06/21/2013 Condition 01/11/2015 [facility] SEXUALLY TRANSMITTED DISEASE, EXPOSURE TO Inactive 06/21/2013 Condition 01/11/2015 [facility] HYPERTROPHY PROSTATE W/O UR OBST & OTH LUTS Active 06/21/2013 Condition 01/11/2015 [facility] PERIPHERAL VASCULAR DISEASE Active 06/21/2013 Condition 01/11/2015 [facility] PERS HX NONCOMPLIANCE W/MED TX PRS HAZARDS HLTH Active 06/21/2013 Condition 01/11/2015 [facility] DIAB W/O MENTION COMP TYPE II/UNS TYPE UNCNTRL Inactive Condition 01/11/2015 [facility] OTHER AND UNSPECIFIED HYPERLIPIDEMIA Active Condition 01/11/2015 [facility] CAD Active Condition 01/11/2015 [facility] GERD Active Condition 01/11/2015 [facility] Medications Medication Details Route Status Patient Instructions Ordering Provider Order Date Source METFORMIN HCL 500 MG TABS take 2 tablets twice a day Active 11/11/2014 [facility] GABAPENTIN 300 MG CAPS Take one tablet by mouth two times a day as needed Active 10/13/2014 [facility] PROAIR HFA 108 (90 BASE) MCG/ACT AERS 2 puff every 6 hours as needed Active 05/12/2014 [facility] LEVAQUIN 750 MG TABS Take one tablet by mouth once a day No Longer Active 05/12/2014 [facility] DIABETIC TUSSIN 100 MG/5ML LIQD Take 7 ml every 6 hours as needed for cough No Longer Active 05/12/2014 [facility] METOPROLOL SUCCINATE ER 50 MG [id number] Take one tablet by mouth once a day every 24 hours Active 01/24/2014 [facility] METOPROLOL SUCCINATE ER 100 MG [id number] take one tablet by mouth daily Active 01/24/2014 [facility] METOPROLOL SUCCINATE ER 100 MG [id number] take one tablet by mouth daily Active 01/24/2014 [facility] METOPROLOL SUCCINATE ER 100 MG [id number] take one tablet by mouth daily Active 01/24/2014 [facility] METOPROLOL SUCCINATE ER 100 MG [id number] take one tablet by mouth daily Active 01/24/2014 [facility] METOPROLOL SUCCINATE ER 100 MG [id number] take one tablet by mouth daily Active 01/24/2014 [facility] GLIPIZIDE-METFORMIN HCL 5-500 MG TABS 2 tablets twice daily Active 12/19/2013 [facility] GLIPIZIDE 10 MG TABS Take one tablet by mouth two times a day Active 12/19/2013 [facility] DIABETIC TUSSIN 100 MG/5ML LIQD Take 7 ml every 6 hours as needed for cough No Longer Active 12/08/2013 [facility] ZITHROMAX Z-STIVEN 250 MG TABS use as directed No Longer Active 12/08/2013 [facility] XYZAL 5 MG TABS Take one tablet by mouth once a day as needed runny nose No Longer Active 12/08/2013 [facility] AMLODIPINE BESY-BENAZEPRIL HCL 10-40 MG CAPS Take one tablet by mouth once a day Active 11/29/2013 [facility] NOVOLOG 100 UNIT/ML SOLN apply 15 units before meals Active 11/29/2013 [facility] BD INSULIN SYRINGE ULTRAFINE 31G X 5/16" 1 ML MISC use as directed Active 11/29/2013 [facility] CORTISPORIN [id number] SOLN apply 4 gtt in affected ear twice a day for 1 week No Longer Active 11/29/2013 [facility] NOVOLOG 100 UNIT/ML SOLN apply 5-10 units before meals Active 11/29/2013 [facility] AMLODIPINE BESY-BENAZEPRIL HCL 10-40 MG CAPS Take one tablet by mouth once a day Active 11/29/2013 [facility] LANTUS SOLOSTAR 100 UNIT/ML SOLN apply 50 units at night Active 11/01/2013 [facility] LANTUS SOLOSTAR 100 UNIT/ML SOLN apply 50 units at night Active 11/01/2013 [facility] BD INSULIN SYRINGE 31G X 5/16" 0.3 ML MISC use as diredted Active 11/01/2013 [facility] LEVEMIR FLEXTOUCH 100 UNIT/ML SOPN apply 50 units at night Active 11/01/2013 [facility] STRIPS check fs Q/DAY Active 07/12/2013 [facility] PRAVASTATIN SODIUM 80 MG TABS Take one tablet by mouth once a day Active 07/12/2013 [facility] PRAVASTATIN SODIUM 80 MG TABS Take one tablet by mouth once a day Active 07/12/2013 [facility] PRAVASTATIN SODIUM 80 MG TABS Take one tablet by mouth once a day Active 07/12/2013 [facility] PRAVASTATIN SODIUM 40 MG TABS Take one tablet by mouth once a day at night Active 07/12/2013 [facility] CIPROFLOXACIN HCL 500 MG TABS Take one tablet every 12 hours No Longer Active 06/21/2013 [facility] TRAMADOL HCL 50 MG TABS 1 tablets every 6-8 hours as needed No Longer Active 06/21/2013 [facility] XYZAL 5 MG TABS Take one tablet by mouth once a day as needed itchiness No Longer Active 06/21/2013 [facility] TRAMADOL HCL 50 MG TABS 1 tablets every 6-8 hours as needed No Longer Active 06/21/2013 [facility] CIPROFLOXACIN HCL 500 MG TABS Take one tablet every 12 hours No Longer Active 06/21/2013 [facility] TRAMADOL HCL 50 MG TABS 1 tablets every 6-8 hours as needed No Longer Active 06/21/2013 [facility] CIPROFLOXACIN HCL 500 MG TABS Take one tablet every 12 hours No Longer Active 06/21/2013 [facility] TRAMADOL HCL 50 MG TABS 1 tablets every 6-8 hours as needed No Longer Active 06/21/2013 [facility] CIPROFLOXACIN HCL 500 MG TABS Take one tablet every 12 hours No Longer Active 06/21/2013 [facility] TRAMADOL HCL 50 MG TABS 1 tablets every 6-8 hours as needed No Longer Active 06/21/2013 [facility] OMEPRAZOLE 40 MG CPDR take 1 tab before meals Active 02/09/2013 [facility] CLOPIDOGREL BISULFATE 75 MG TABS 1 tablet daily Active [facility] ASPIRIN LOW DOSE 81 MG TABS 1 tablet daily Active [facility] GLIPIZIDE-METFORMIN HCL 5-500 MG TABS 2 tablets twice daily Active [facility] METOPROLOL TARTRATE 50 MG TABS 1 tablet daily Active [facility] Allergies, Adverse Reactions, Alerts No Known Medication Allergies Immunizations Immunization Date Given Site Status Last Updated Comments Source influenza immunization (Flu Vax) has been administered 07/12/2013 [facility] pneumococcal immunization administered 08/27/2012 [facility] influenza immunization (Flu Vax) has been administered 06/09/2012 [facility] Results Order Name Results Value Reference Range Date Interpretation Comments Source Chemistry HGBA1C 13.7 - 5.6 01/11/2015 [facility] Chemistry SODIUM 137 MEQ/L 135 - 145 01/11/2015 [facility] Chemistry POTASSIUM 4.2 MEQ/L 3.5 - 5.1 01/11/2015 [facility] Chemistry CREATININE 0.8 0.5 - 1.4 01/11/2015 [facility] Chemistry BUN 15 7 - 22 01/11/2015 [facility] Chemistry BUN/CREAT 19 6 - 25 01/11/2015 [facility] Chemistry ALBUMIN 3.4 3.5 - 5.0 01/11/2015 [facility] Chemistry CALCIUM 9.1 8.5 - 10.5 01/11/2015 [facility] Chemistry SGPT (ALT) 20 0 - 65 01/11/2015 [facility] Chemistry SGOT (AST) 9 0 - 37 01/11/2015 [facility] Chemistry ALK PHOS 106 39 - 136 01/11/2015 [facility] Chemistry HGBA1C 12.8 - 5.6 10/13/2014 [facility] Chemistry TSH 1.120 0.360 - 3.740 10/13/2014 [facility] CHOLESTEROL 201 - 199 10/13/2014 [facility] TRIGLYCERIDE 217 - 149 10/13/2014 [facility] Chemistry HDL 49 >=61 10/13/2014 [facility] Chemistry LDL 109 - 99 10/13/2014 [facility] Chemistry SODIUM 136 MEQ/L 135 - 145 10/13/2014 [facility] Chemistry POTASSIUM 4.0 MEQ/L 3.5 - 5.1 10/13/2014 [facility] Chemistry CREATININE 0.8 0.5 - 1.4 10/13/2014 [facility] Chemistry BUN 15 7 - 22 10/13/2014 [facility] Chemistry BUN/CREAT 19 6 - 25 10/13/2014 [facility] Chemistry ALBUMIN 3.6 3.5 - 5.0 10/13/2014 [facility] Chemistry CALCIUM 8.8 8.5 - 10.5 10/13/2014 [facility] Chemistry SGPT (ALT) 19 0 - 65 10/13/2014 [facility] Chemistry SGOT (AST) 10 0 - 37 10/13/2014 [facility] Chemistry ALK PHOS 103 39 - 136 10/13/2014 [facility] Chemistry PSA 0.33 0.00 - 4.00 10/13/2014 [facility] Hematology HGB 15.3 14.0 - 18.0 10/13/2014 [facility] Hematology HCT 44.2 42.0 - 54.0 10/13/2014 [facility] Hematology PLATELETS 208 K/CMM 133 - 450 10/13/2014 [facility] Chemistry HGBA1C 12.5 - 5.6 06/28/2014 [facility] Chemistry CHOLESTEROL 251 - 199 06/28/2014 [facility] Chemistry TRIGLYCERIDE 230 - 149 06/28/2014 [facility] Chemistry HGBA1C 12.5 - 5.6 06/28/2014 [facility] Chemistry CHOLESTEROL 251 - 199 06/28/2014 [facility] Chemistry TRIGLYCERIDE 230 - 149 06/28/2014 [facility] Chemistry HDL 53 >=61 06/28/2014 [facility] Chemistry LDL 152 - 99 06/28/2014 [facility] Chemistry SODIUM 136 MEQ/L 135 - 145 06/28/2014 [facility] Chemistry POTASSIUM 3.9 MEQ/L 3.5 - 5.1 06/28/2014 [facility] Chemistry CREATININE 1.0 0.5 - 1.4 06/28/2014 [facility] Chemistry BUN 19 7 - 22 06/28/2014 [facility] Chemistry BUN/CREAT 19 6 - 25 06/28/2014 [facility] Chemistry ALBUMIN 3.6 3.5 - 5.0 06/28/2014 [facility] Chemistry CALCIUM 8.9 8.5 - 10.5 06/28/2014 [facility] Chemistry SGPT (ALT) 17 0 - 65 06/28/2014 [facility] Chemistry SGOT (AST) 9 0 - 37 06/28/2014 [facility] Chemistry ALK PHOS 129 39 - 136 06/28/2014 [facility] Chemistry HGBA1C 12.1 - 5.6 03/07/2014 [facility] Chemistry HGBA1C 12.1 - 5.6 03/07/2014 [facility] Chemistry CHOLESTEROL 241 - 199 03/07/2014 [facility] Chemistry TRIGLYCERIDE 160 - 149 03/07/2014 [facility] Chemistry HGBA1C 12.1 - 5.6 03/07/2014 [facility] Chemistry CHOLESTEROL 241 - 199 03/07/2014 [facility] Chemistry TRIGLYCERIDE 160 - 149 03/07/2014 [facility] Chemistry HDL 59 >=61 03/07/2014 [facility] Chemistry LDL 150 - 99 03/07/2014 [facility] Chemistry SODIUM 138 MEQ/L 135 - 145 03/07/2014 [facility] Chemistry POTASSIUM 3.9 MEQ/L 3.5 - 5.1 03/07/2014 [facility] Chemistry CREATININE 0.9 0.5 - 1.4 03/07/2014 [facility] Chemistry BUN 17 7 - 22 03/07/2014 [facility] Chemistry BUN/CREAT 19 6 - 25 03/07/2014 [facility] Chemistry ALBUMIN 3.9 3.5 - 5.0 03/07/2014 [facility] Chemistry CALCIUM 9.2 8.5 - 10.5 03/07/2014 [facility] Chemistry SGPT (ALT) 21 0 - 65 03/07/2014 [facility] Chemistry SGOT (AST) 10 0 - 37 03/07/2014 [facility] Chemistry ALK PHOS 123 39 - 136 03/07/2014 [facility] Serology RPR Non Reactive 03/07/2014 [facility] Serology RPR Non Reactive 03/07/2014 [facility] Serology RPR Non Reactive 03/07/2014 [facility] Serology RPR Non Reactive 03/07/2014 [facility] Serology RPR Non Reactive 03/07/2014 [facility] Chemistry HGBA1C 12.5 - 5.6 11/03/2013 [facility] Chemistry TSH 0.900 0.360 - 3.740 11/03/2013 [facility] Chemistry CHOLESTEROL 212 - 199 11/03/2013 [facility] Chemistry HGBA1C 12.5 - 5.6 11/03/2013 [facility] Chemistry TSH 0.900 0.360 - 3.740 11/03/2013 [facility] Chemistry CHOLESTEROL 212 - 199 11/03/2013 [facility] Chemistry TRIGLYCERIDE 173 - 149 11/03/2013 [facility] Chemistry HDL 52 >=61 11/03/2013 [facility] Chemistry SODIUM 135 MEQ/L 135 - 145 11/03/2013 [facility] Chemistry POTASSIUM 4.0 MEQ/L 3.5 - 5.1 11/03/2013 [facility] Chemistry CREATININE 0.8 0.5 - 1.4 11/03/2013 [facility] Chemistry BUN 17 7 - 22 11/03/2013 [facility] Chemistry BUN/CREAT 21 6 - 25 11/03/2013 [facility] Chemistry ALBUMIN 3.6 3.5 - 5.0 11/03/2013 [facility] Chemistry CALCIUM 8.7 8.5 - 10.5 11/03/2013 [facility] Chemistry SGPT (ALT) 18 0 - 65 11/03/2013 [facility] Chemistry SGOT (AST) 10 0 - 37 11/03/2013 [facility] Chemistry ALK PHOS 113 39 - 136 11/03/2013 [facility] Chemistry PSA 0.34 0.00 - 4.00 11/03/2013 [facility] Chemistry HGBA1C 12.5 - 5.6 11/03/2013 [facility] Chemistry TSH 0.900 0.360 - 3.740 11/03/2013 [facility] Chemistry CHOLESTEROL 212 - 199 11/03/2013 [facility] Chemistry TRIGLYCERIDE 173 - 149 11/03/2013 [facility] Chemistry HDL 52 >=61 11/03/2013 [facility] Chemistry SODIUM 135 MEQ/L 135 - 145 11/03/2013 [facility] Chemistry POTASSIUM 4.0 MEQ/L 3.5 - 5.1 11/03/2013 [facility] Chemistry CREATININE 0.8 0.5 - 1.4 11/03/2013 [facility] Chemistry BUN 17 7 - 22 11/03/2013 [facility] Chemistry BUN/CREAT 21 6 - 25 11/03/2013 [facility] Chemistry ALBUMIN 3.6 3.5 - 5.0 11/03/2013 [facility] Chemistry CALCIUM 8.7 8.5 - 10.5 11/03/2013 [facility] Chemistry SGPT (ALT) 18 0 - 65 11/03/2013 [facility] Chemistry SGOT (AST) 10 0 - 37 11/03/2013 [facility] Chemistry ALK PHOS 113 39 - 136 11/03/2013 [facility] Chemistry PSA 0.34 0.00 - 4.00 11/03/2013 [facility] Chemistry HGBA1C 12.5 - 5.6 11/03/2013 [facility] Chemistry TSH 0.900 0.360 - 3.740 11/03/2013 [facility] Chemistry CHOLESTEROL 212 - 199 11/03/2013 [facility] Chemistry TRIGLYCERIDE 173 - 149 11/03/2013 [facility] Chemistry HDL 52 >=61 11/03/2013 [facility] Chemistry LDL 125 - 99 11/03/2013 [facility] Chemistry SODIUM 135 MEQ/L 135 - 145 11/03/2013 [facility] Chemistry POTASSIUM 4.0 MEQ/L 3.5 - 5.1 11/03/2013 [facility] Chemistry CREATININE 0.8 0.5 - 1.4 11/03/2013 [facility] Chemistry BUN 17 7 - 22 11/03/2013 [facility] Chemistry BUN/CREAT 21 6 - 25 11/03/2013 [facility] Chemistry ALBUMIN 3.6 3.5 - 5.0 11/03/2013 [facility] Chemistry CALCIUM 8.7 8.5 - 10.5 11/03/2013 [facility] Chemistry SGPT (ALT) 18 0 - 65 11/03/2013 [facility] Chemistry HGBA1C 12.5 - 5.6 11/03/2013 [facility] Chemistry HGBA1C 12.5 - 5.6 11/03/2013 [facility] Chemistry TSH 0.900 0.360 - 3.740 11/03/2013 [facility] Chemistry CHOLESTEROL 212 - 199 11/03/2013 [facility] Chemistry HGBA1C 12.5 - 5.6 11/03/2013 [facility] Chemistry TSH 0.900 0.360 - 3.740 11/03/2013 [facility] Chemistry CHOLESTEROL 212 - 199 11/03/2013 [facility] Chemistry TRIGLYCERIDE 173 - 149 11/03/2013 [facility] Chemistry HDL 52 >=61 11/03/2013 [facility] Chemistry LDL 125 - 99 11/03/2013 [facility] Chemistry SODIUM 135 MEQ/L 135 - 145 11/03/2013 [facility] Chemistry POTASSIUM 4.0 MEQ/L 3.5 - 5.1 11/03/2013 [facility] Chemistry CREATININE 0.8 0.5 - 1.4 11/03/2013 [facility] Chemistry BUN 17 7 - 22 11/03/2013 [facility] Chemistry BUN/CREAT 21 6 - 25 11/03/2013 [facility] Chemistry ALBUMIN 3.6 3.5 - 5.0 11/03/2013 [facility] Chemistry CALCIUM 8.7 8.5 - 10.5 11/03/2013 [facility] Chemistry SGPT (ALT) 18 0 - 65 11/03/2013 [facility] Chemistry SGOT (AST) 10 0 - 37 11/03/2013 [facility] Chemistry ALK PHOS 113 39 - 136 11/03/2013 [facility] Chemistry PSA 0.34 0.00 - 4.00 11/03/2013 [facility] Chemistry SGOT (AST) 10 0 - 37 11/03/2013 [facility] Chemistry ALK PHOS 113 39 - 136 11/03/2013 [facility] Chemistry PSA 0.34 0.00 - 4.00 11/03/2013 [facility] Hematology HGB 14.9 14.0 - 18.0 11/03/2013 [facility] Hematology HCT 43.9 42.0 - 54.0 11/03/2013 [facility] Hematology PLATELETS 200 K/CMM 133 - 450 11/03/2013 [facility] Hematology HGB 14.9 14.0 - 18.0 11/03/2013 [facility] Hematology HCT 43.9 42.0 - 54.0 11/03/2013 [facility] Hematology PLATELETS 200 K/CMM 133 - 450 11/03/2013 [facility] Hematology HGB 14.9 14.0 - 18.0 11/03/2013 [facility] Hematology HCT 43.9 42.0 - 54.0 11/03/2013 [facility] Hematology PLATELETS 200 K/CMM 133 - 450 11/03/2013 [facility] Hematology HGB 14.9 14.0 - 18.0 11/03/2013 [facility] Hematology HCT 43.9 42.0 - 54.0 11/03/2013 [facility] Hematology PLATELETS 200 K/CMM 133 - 450 11/03/2013 [facility] Chemistry HGBA1C 12.0 - 5.6 06/23/2013 [facility] Chemistry HGBA1C 12.0 - 5.6 06/23/2013 [facility] Chemistry CHOLESTEROL 245 - 199 06/23/2013 [facility] Chemistry TRIGLYCERIDE 189 - 149 06/23/2013 [facility] Chemistry HGBA1C 12.0 - 5.6 06/23/2013 [facility] Chemistry CHOLESTEROL 245 - 199 06/23/2013 [facility] Chemistry TRIGLYCERIDE 189 - 149 06/23/2013 [facility] Chemistry HDL 47 >=61 06/23/2013 [facility] Chemistry LDL 160 - 99 06/23/2013 [facility] Chemistry SODIUM 136 MEQ/L 135 - 145 06/23/2013 [facility] Chemistry POTASSIUM 4.4 MEQ/L 3.5 - 5.1 06/23/2013 [facility] Chemistry CREATININE 0.8 0.5 - 1.4 06/23/2013 [facility] Chemistry BUN 17 7 - 22 06/23/2013 [facility] Chemistry BUN/CREAT 21 6 - 25 06/23/2013 [facility] Chemistry ALBUMIN 4.0 3.5 - 5.0 06/23/2013 [facility] Chemistry CALCIUM 9.6 8.5 - 10.5 06/23/2013 [facility] Chemistry SGPT (ALT) 28 0 - 65 06/23/2013 [facility] Chemistry SGOT (AST) 12 0 - 37 06/23/2013 [facility] Chemistry ALK PHOS 136 39 - 136 06/23/2013 [facility] Chemistry PSA 0.49 0.00 - 4.00 06/23/2013 [facility] Serology RPR Non Reactive 06/23/2013 [facility] Serology RPR Non Reactive 06/23/2013 [facility] Serology RPR Non Reactive 06/23/2013 [facility] Serology RPR Non Reactive 06/23/2013 [facility] Serology RPR Non Reactive 06/23/2013 [facility] Serology RPR Non Reactive 06/23/2013 [facility] Serology RPR Non Reactive 06/23/2013 [facility] Urinalysis UA COLOR Yellow 06/23/2013 [facility] Urinalysis UA COLOR Yellow 06/23/2013 [facility] Urinalysis UA COLOR Yellow 06/23/2013 [facility] Urinalysis UA COLOR Yellow 06/23/2013 [facility] Urinalysis UA COLOR Yellow 06/23/2013 [facility] Urinalysis UA COLOR Yellow 06/23/2013 [facility] Urinalysis UA COLOR Yellow 06/23/2013 [facility] Urinalysis UA COLOR Light Yellow 06/21/2013 [facility] Urinalysis UA COLOR Light Yellow 06/21/2013 [facility] Urinalysis UA COLOR Light Yellow 06/21/2013 [facility] Urinalysis UA COLOR Light Yellow 06/21/2013 [facility] Urinalysis UA COLOR Light Yellow 06/21/2013 [facility] Urinalysis UA COLOR Light Yellow 06/21/2013 [facility] Urinalysis UA COLOR Light Yellow 06/21/2013 [facility] Urinalysis UA COLOR Light Yellow 06/21/2013 [facility] Urinalysis UA COLOR Light Yellow 06/21/2013 [facility] Urinalysis UA COLOR Light Yellow 06/21/2013 [facility] Urinalysis UA COLOR Light Yellow 06/21/2013 [facility] Urinalysis UA COLOR Light Yellow 06/21/2013 [facility] Urinalysis UA COLOR Light Yellow 06/21/2013 [facility] Urinalysis UA COLOR Light Yellow 06/21/2013 [facility] Urinalysis UA COLOR Light Yellow 06/21/2013 [facility] Urinalysis UA COLOR Light Yellow 06/21/2013 [facility] Urinalysis UA COLOR Light Yellow 06/21/2013 [facility] Chemistry HEMOCCULT Done 10/10/2011 [facility] Chemistry HEMOCCULT Done 10/10/2011 [facility] Microbiology HEMOCCULT Done 10/10/2011 [facility] Microbiology HEMOCCULT Done 10/10/2011 [facility] Pathology Reports No Data Provided for This Section Diagnostic Reports No Data Provided for This Section Consultation Notes No Data Provided for This Section Discharge Summaries No Data Provided for This Section History and Physicals No Data Provided for This Section Vital Signs Vital Sign Value Date Comments Source Height 66 10/13/2014 [facility] Weight 203 10/13/2014 [facility] Respitory Rate 16 10/13/2014 [facility] Temperature Oral (F) 98.4 F 10/13/2014 [facility] Systolic (mm Hg) 156 10/13/2014 [facility] Diastolic (mm Hg) 86 10/13/2014 [facility] Heart Rate 66 10/13/2014 [facility] Respitory Rate 16 07/14/2014 [facility] Weight 206 07/14/2014 [facility] Height 66 07/14/2014 [facility] Temperature Oral (F) 98.0 F 07/14/2014 [facility] Heart Rate 96 07/14/2014 [facility] Systolic (mm Hg) 150 07/14/2014 [facility] Diastolic (mm Hg) 89 07/14/2014 [facility] Height 66 05/12/2014 [facility] Weight 211 05/12/2014 [facility] Temperature Oral (F) 98.3 F 05/12/2014 [facility] Respitory Rate 14 05/12/2014 [facility] Heart Rate 69 05/12/2014 [facility] Systolic (mm Hg) 147 05/12/2014 [facility] Diastolic (mm Hg) 79 05/12/2014 [facility] Height 66 04/04/2014 [facility] Respitory Rate 16 04/04/2014 [facility] Systolic (mm Hg) 139 04/04/2014 [facility] Diastolic (mm Hg) 82 04/04/2014 [facility] Heart Rate 62 04/04/2014 [facility] Temperature Oral (F) 97.9 F 04/04/2014 [facility] Weight 209 04/04/2014 [facility] Respitory Rate 16 03/07/2014 [facility] Temperature Oral (F) 98.1 F 03/07/2014 [facility] Weight 210 03/07/2014 [facility] Systolic (mm Hg) 140 03/07/2014 [facility] Diastolic (mm Hg) 87 03/07/2014 [facility] Heart Rate 90 03/07/2014 [facility] Temperature Oral (F) 98.7 F 12/08/2013 [facility] Respitory Rate 16 12/08/2013 [facility] Weight 205 12/08/2013 [facility] Systolic (mm Hg) 140 12/08/2013 [facility] Diastolic (mm Hg) 87 12/08/2013 [facility] Heart Rate 75 12/08/2013 [facility] Weight 206 11/29/2013 [facility] Respitory Rate 16 11/29/2013 [facility] Systolic (mm Hg) 138 11/29/2013 [facility] Diastolic (mm Hg) 79 11/29/2013 [facility] Heart Rate 65 11/29/2013 [facility] Respitory Rate 16 11/01/2013 [facility] Heart Rate 70 11/01/2013 [facility] Systolic (mm Hg) 148 11/01/2013 [facility] Diastolic (mm Hg) 84 11/01/2013 [facility] Weight 202 11/01/2013 [facility] Weight 207.50 07/12/2013 [facility] Respitory Rate 12 07/12/2013 [facility] Heart Rate 67 07/12/2013 [facility] Systolic (mm Hg) 140 07/12/2013 [facility] Diastolic (mm Hg) 80 07/12/2013 [facility] Respitory Rate 16 06/21/2013 [facility] Height 66 06/21/2013 [facility] Systolic (mm Hg) 150 06/21/2013 [facility] Diastolic (mm Hg) 86 06/21/2013 [facility] Heart Rate 70 06/21/2013 [facility] Weight 206.38 06/21/2013 [facility] Encounters Location Location Details Encounter Type Encounter Number Reason For Visit Attending Provider ADM Date DC Date Status Source [facility] Office Visit [id number] Meseret Long MD 12/08/2013 12/08/2013 [facility] Lab Report [id number] Meseret Long MD 03/07/2014 03/07/[address] [facility] Office Visit [id number] Meseret Long MD 03/07/2014 03/07/[address] [facility] Office Visit [id number] Meseret Long MD 04/04/2014 04/04/[address] [facility] Office Visit [id number] Meseret Long MD 05/12/2014 05/12/[address] [facility] Lab Report [id number] Meseret Long MD 06/28/2014 06/28/2014 [facility] Office Visit [id number] Meseret Long MD 07/14/2014 07/14/2014 [facility] Office Visit [id number] Meseret Long MD 10/13/2014 10/13/2014 [facility] Lab Report [id number] Meseret Long MD 10/13/2014 10/13/2014 [facility] Lab Report [id number] Meseret Long MD 01/11/2015 01/11/2015 [facility] Procedures Procedure Code Date Perfomer Comments Source diabetic foot check [id number] 10/13/2014 yes [facility] depression, criteria for diagnosis, step 1 99337 04/04/2014 [facility] depression, criteria for diagnosis, step 2 [id number] 04/04/2014 N [facility] Assessment and Plan No Data Provided for This Section Plan of Care No Data Provided for This Section Social History No Data Provided for This Section Family History No Data Provided for This Section Advance Directives No Data Provided for This Section Functional Status No Data Provided for This Section
--- NOTE | 2019-04-15 22:20 | NUR ---
pt placed on tele box 28
--- OUTSIDE RECORDS SUMMARY | 2019-04-15 22:20 | XMS REPORT | Continuity of Care Document ---
Author Author [facility] Organization [facility] Address Unknown Phone Unavailable Care Team Providers Care Ironer Machine Name Role Phone MD Ethan, Meseret VARGAS [...] Location Date Lab Report Meseret Long MD [facility] Jun 28, 2014 Problems Problem Effective Dates Problem Status [...] GRAFT Mar 13, 2014 Active ATHEROSCLEROSIS OF [place] ARTERIES OF THE EXTREMITIES WITH INTERMITTENT CLAUDICATION Mar 13, 2014 Active BRONCHITIS May 12, 2014 Active Procedures Date Description Comments Jun 21, 2013 smoking status never smoker Nov 01, 2013 diabetic foot check yes Mar 07, 2014 smoking status Never smoker Apr 04, 2014 smoking status Never smoker Apr 04, 2014 depression, criteria for diagnosis, step 1 N Apr 04, 2014 depression, criteria for diagnosis, step 2 N May 12, 2014 smoking status Never smoker Medications Medication [...] check fs Q/DAY Jul 12, 2013 Active AMLODIPINE BESY-BENAZEPRIL HCL [...] use as directed Nov 29, 2013 Active GLIPIZIDE-METFORMIN HCL 5-500 [...] 2013 Inactive METOPROLOL SUCCINATE ER 100 MG [id number] take one tablet by mouth daily Jan 24, 2014 Active LANTUS SOLOSTAR 100 UNIT/ML SOLN apply 50 units at night Nov 01, 2013 Active BD INSULIN SYRINGE 31G X 5/16" 0.3 ML MISC use as diredted Nov 01, 2013 Active CORTISPORIN 3.5-19440-5 SOLN apply 4 gtt in affected ear twice a day for 1 week Nov 29, 2013 Inactive PROAIR HFA 108 (90 BASE) MCG/ACT AERS 2 puff every 6 hours as needed May 12, 2014 Active LEVAQUIN 750 MG TABS Take one tablet by mouth once a day May 12, 2014 Active DIABETIC TUSSIN 100 MG/5ML LIQD Take 7 ml every 6 hours as needed for cough May 12, 2014 Active PRAVASTATIN SODIUM 40 MG TABS Take one tablet by mouth once a day at night Jul 12, 2013 Active Immunizations Vaccine Date Status influenza [...] 70 /min Jun 21, 2013 weight E&M - 3141-9 WEIGHT 206.38 lb Jun 21, 2013 blood pressure, systolic, second observation BP SYS #2 145 mm Hg Jun 21, 2013 blood pressure, diastolic, second observation BP KRISTEL #2 80 mm Hg Jul 12, 2013 weight E&M - 3141-9 WEIGHT 207.50 lb Jul 12, 2013 respiratory [...] mm Hg Nov 01, 2013 weight E&M - 3141-9 WEIGHT 202 lb Nov 01, 2013 blood pressure, systolic, second observation BP SYS #2 148 mm Hg Nov 01, 2013 blood pressure, diastolic, second observation BP KRISTEL #2 78 mm Hg Nov 29, 2013 weight E&M - 3141-9 WEIGHT 206 lb Nov 29, 2013 respiratory [...] 16 /min December 08, 2013 weight E&M - 3141-9 WEIGHT 205 lb December 08, 2013 blood pressure, systolic - 8480-6 BP SYSTOLIC 140 mm Hg December 08, 2013 blood pressure, diastolic - 8462-4 BP DIASTOLIC 87 mm Hg December 08, 2013 pulse rate E&M - 8867-4 PULSE RATE 75 /min Mar 07, 2014 respiratory rate E&M - 9279-1 RESP RATE 16 /min Mar 07, 2014 temperature E&M TEMPERATURE 98.1 deg f Mar 07, 2014 weight E&M - 3141-9 WEIGHT 210 lb Mar 07, 2014 blood pressure, systolic - 8480-6 BP SYSTOLIC 140 mm Hg Mar 07, 2014 blood pressure, diastolic - 8462-4 BP DIASTOLIC 87 mm Hg Mar 07, 2014 pulse rate E&M - 8867-4 PULSE RATE 90 /min Apr 04, 2014 height E&M - 8302-2 HEIGHT 66 in Apr 04, 2014 respiratory rate E&M - 9279-1 RESP RATE 16 /min Apr 04, 2014 blood pressure, systolic - 8480-6 BP SYSTOLIC 139 mm Hg Apr 04, 2014 blood pressure, diastolic - 8462-4 BP DIASTOLIC 82 mm Hg Apr 04, 2014 pulse rate E&M - 8867-4 PULSE RATE 62 /min Apr 04, 2014 temperature E&M TEMPERATURE 97.9 deg f Apr 04, 2014 weight E&M - 3141-9 WEIGHT 209 lb May 12, 2014 height E&Carmen - 8302-2 HEIGHT 66 in May 12, 2014 weight E&Carmen - 3141-9 WEIGHT 211 lb May 12, 2014 temperature E&M TEMPERATURE 98.3 deg f May 12, 2014 respiratory rate ESusan - 9279-1 RESP RATE 14 /min May 12, 2014 pulse rate E&Carmen - 8867-4 PULSE RATE 69 /min May 12, 2014 blood pressure, systolic - 8480-6 BP SYSTOLIC 147 mm Hg May 12, 2014 blood pressure, diastolic - 8462-4 BP DIASTOLIC 79 mm Hg Results Date Description Test Name Value Reference [...] 2013 urea nitrogen, blood BUN 17 mg/dL 7-Jun 23, 2013 urea nitrogen/creatinine ratio, serum BUN/CREAT [...] serum ALK PHOS 123 U/L 39-136 Jun 28, 2014 hemoglobin A1C, blood, as % of total hemoglobin HGBA1C 12.5 % <=5.6 High Jun 28, 2014 cholesterol, serum CHOLESTEROL 251 mg/dl <=199 High Jun 28, 2014 triglyceride, serum, fasting TRIGLYCERIDE 230 mg/dl <=149 High Jun 28, 2014 HDL cholesterol, serum HDL 53 mg/dl >=61 Low Jun 28, 2014 LDL cholesterol, serum LDL 152 mg/dl <=99 High Jun 28, 2014 sodium, serum SODIUM 136 MEQ/L mmol/L 135-145 Jun 28, 2014 potassium, serum POTASSIUM 3.9 MEQ/L mmol/L 3.5-5.1 Jun 28, 2014 creatinine, serum CREATININE 1.0 mg/dL 0.5-1.4 Jun 28, 2014 urea nitrogen, blood BUN 19 mg/dL 7-Jun 28, 2014 urea nitrogen/creatinine ratio, serum BUN/CREAT 19 null 6-25 Jun 28, 2014 albumin, serum ALBUMIN 3.6 g/dL 3.5-5.0 Jun 28, 2014 calcium, serum CALCIUM 8.9 mg/dL 8.5-10.5 Jun 28, 2014 alanine aminotransferase (SGPT), serum SGPT (ALT) 17 U/L 0-65 Jun 28, 2014 aspartate aminotransferase (SGOT), serum SGOT (AST) 9 U/L 0-37 Jun 28, 2014 alkaline phosphatase, serum ALK PHOS 129 U/L 39-136 Jun 21, 2013 urine color [...]
--- OUTSIDE RECORDS SUMMARY | 2019-04-15 22:20 | XMS REPORT | Continuity of Care Document ---
Author Author [facility] Organization [facility] Address Unknown Phone Unavailable Care Team Providers Care Video Production Specialist Name Role Phone MD Ethan, Meseret VARGAS [...] REPLACEMENT HMO) [employer] [place] ([place]IC[place]AC[place]) [employer] - HEALTHSP RENAISSKeyLemon PHYSICAN ORGANIZATION - HEALTHSP RENRukukuSSKeyLemon PHYSICAN ORGANIZATION - HEALTHSP RENRukukuSSKeyLemon PHYSICAN ORGANIZATION - HEALTHSP RENAISSDNsolutionAN ORGANIZATION - HEALTHSP Encounters Encounter Performer Location Date Office Visit Meseret Long MD [facility] Oct 13, 2014 Problems Problem Effective Dates Problem Status [...] 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[place] Nov 01, 2013 Inactive SCREENING FOR GLAUCOMA Nov 01, 2013 Active BODY MASS INDEX 32.0-32.9 ADULT Nov 01, 2013 Active UPPER RESPIRATORY INFECTION December 08, 2013 Inactive CHEST PAIN NOS Mar 07, 2014 Inactive CORONARY ATHEROSCLEROSIS, AUTOLOGOUS VEIN BYPASS GRAFT Mar 13, 2014 Inactive ATHEROSCLEROSIS OF [place] ARTERIES OF THE EXTREMITIES WITH INTERMITTENT CLAUDICATION Mar 13, 2014 Inactive BRONCHITIS May 12, 2014 Inactive PROSTATE NEOPLASM SCREENING Oct 13, 2014 Active DIABETIC NEUROPATHY Oct 13, 2014 Active Procedures Date Description Comments Jun 21, 2013 smoking status never smoker Nov 01, 2013 diabetic foot check yes Mar 07, 2014 smoking status Never smoker Apr 04, 2014 smoking status Never smoker Apr 04, 2014 depression, criteria for diagnosis, step 1 N Apr 04, 2014 depression, criteria for diagnosis, step 2 N May 12, 2014 smoking status Never smoker Jul 14, 2014 smoking status Never smoker Oct 13, 2014 smoking status Never smoker Oct 13, 2014 diabetic foot check yes Medications Medication Instructions Start Date Status CLOPIDOGREL [...] as needed itchiness Jun 21, 2013 Inactive BD INSULIN SYRINGE ULTRAFINE 31G X 5/16" [...] 2013 Inactive METOPROLOL SUCCINATE ER 100 MG [id number] take one tablet by mouth daily Jan 24, 2014 Active BD INSULIN SYRINGE 31G X 5/16" 0.3 ML MISC use as diredted Nov 01, 2013 Active CORTISPORIN 3.5-89236-9 SOLN apply 4 gtt in affected ear twice a day for 1 week Nov 29, 2013 Inactive PROAIR HFA 108 (90 BASE) MCG/ACT AERS 2 puff every 6 hours as needed May 12, 2014 Active PRAVASTATIN SODIUM 40 MG TABS Take one tablet by mouth once a day at night Jul 12, 2013 Active LEVAQUIN 750 MG TABS Take one tablet by mouth once a day May 12, 2014 Inactive DIABETIC TUSSIN 100 MG/5ML LIQD Take 7 ml every 6 hours as needed for cough May 12, 2014 Inactive LEVEMIR FLEXTOUCH 100 UNIT/ML SOPN apply 50 units at night Nov 01, 2013 Active NOVOLOG 100 UNIT/ML SOLN apply 15 units before meals Nov 29, 2013 Active GABAPENTIN 300 MG CAPS Take one tablet by mouth two times a day as needed Oct 13, 2014 Active Immunizations Vaccine Date Status influenza immunization [...] WEIGHT 209 lb May 12, 2014 height E&M - 8302-2 HEIGHT 66 in May 12, 2014 weight E&M - 3141-9 WEIGHT 211 lb May 12, 2014 temperature E&M TEMPERATURE 98.3 deg f May 12, 2014 respiratory rate E&M - 9279-1 RESP RATE 14 /min May 12, 2014 pulse rate E&M - 8867-4 PULSE RATE 69 /min May 12, 2014 blood pressure, systolic - 8480-6 BP SYSTOLIC 147 mm Hg May 12, 2014 blood pressure, diastolic - 8462-4 BP DIASTOLIC 79 mm Hg Jul 14, 2014 respiratory rate E&M - 9279-1 RESP RATE 16 /min Jul 14, 2014 weight E&M - 3141-9 WEIGHT 206 lb Jul 14, 2014 height E&M - 8302-2 HEIGHT 66 in Jul 14, 2014 temperature E&M TEMPERATURE 98.0 deg f Jul 14, 2014 pulse rate E&M - 8867-4 PULSE RATE 96 /min Jul 14, 2014 blood pressure, systolic - 8480-6 BP SYSTOLIC 150 mm Hg Jul 14, 2014 blood pressure, diastolic - 8462-4 BP DIASTOLIC 89 mm Hg Oct 13, 2014 height E&M - 8302-2 HEIGHT 66 in Oct 13, 2014 weight E&M - 3141-9 WEIGHT 203 lb Oct 13, 2014 respiratory rate E&M - 9279-1 RESP RATE 16 /min Oct 13, 2014 temperature E&M TEMPERATURE 98.4 deg f Oct 13, 2014 blood pressure, systolic - 8480-6 BP SYSTOLIC 156 mm Hg Oct 13, 2014 blood pressure, diastolic - 8462-4 BP DIASTOLIC 86 mm Hg Oct 13, 2014 pulse rate E&M - 8867-4 PULSE RATE 66 /min Results Date Description Test Name Value [...] urea nitrogen/creatinine ratio, serum BUN/CREAT 19 null 6-Mar 07, 2014 albumin, serum ALBUMIN 3.9 g/dL 3.5-5.0 Mar 07, 2014 calcium, serum CALCIUM 9.2 mg/dL 8.5-10.5 Mar 07, 2014 alanine aminotransferase (SGPT), serum SGPT (ALT) 21 U/L 0-Mar 07, 2014 aspartate aminotransferase (SGOT), serum SGOT (AST) 10 U/L 0-Mar 07, 2014 alkaline phosphatase, serum ALK PHOS [...] urea nitrogen/creatinine ratio, serum BUN/CREAT 19 null 6-Jun 28, 2014 albumin, serum ALBUMIN 3.6 g/dL [...]
--- OUTSIDE RECORDS SUMMARY | 2019-04-15 22:20 | XMS REPORT | Continuity of Care Document ---
Author Author [facility] Organization [facility] Address Unknown Phone Unavailable Care Team Providers Care Felt Coverer Name Role Phone MD Ethan, Meseret VARGAS Unavailable Insurance Providers Payer name Policy type / Coverage type Policy ID Covered green party ID Policy [employer] [facility] [place] (MEDICARE [...] Location Date Office Visit Meseret Long MD [facility] May 12, 2014 Problems Problem Effective Dates Problem Status [...] GRAFT Mar 13, 2014 Active ATHEROSCLEROSIS OF [place] ARTERIES OF THE EXTREMITIES WITH INTERMITTENT CLAUDICATION [...] 2013 Inactive METOPROLOL SUCCINATE ER 100 MG [id number] take one tablet by mouth daily Jan 24, 2014 Active LANTUS SOLOSTAR 100 UNIT/ML SOLN apply 50 units at night Nov 01, 2013 Active BD INSULIN SYRINGE 31G X 5/16" 0.3 ML MISC use as diredted Nov 01, 2013 Active CORTISPORIN 3.5-46705-5 SOLN apply 4 gtt in affected ear [...] needed for cough May 12, 2014 Active Immunizations Vaccine Date Status influenza [...]
--- OUTSIDE RECORDS SUMMARY | 2019-04-15 22:20 | XMS REPORT | Continuity of Care Document ---
Author [facility] Organization [facility] Address Unknown Phone Unavailable Care Team Providers Care Aquatic Facility Manager Name Role Phone MD Ethan, Meseret VARGAS Unavailable Insurance Providers Payer name Policy type / Coverage type Policy ID Covered libertarian ID Policy Stone [employer] [place] (MEDIC[place] REPLACEMENT [...] REPLACEMENT HMO) [facility] [place] ([place]) [facility] - HEALTHSP Encounters Encounter Performer Location Date Office Visit Meseret Long MD [facility] Jul 14, 2014 Problems Problem Effective Dates Problem Status [...] GRAFT Mar 13, 2014 Active ATHEROSCLEROSIS OF [place] ARTERIES OF THE EXTREMITIES WITH INTERMITTENT CLAUDICATION [...] Jul 14, 2014 smoking status Never smoker Medications Medication [...] 2013 Inactive METOPROLOL SUCCINATE ER 100 MG [id number] take one tablet by mouth daily Jan 24, 2014 Active BD INSULIN SYRINGE 31G X 5/16" 0.3 ML MISC use as diredted Nov 01, 2013 Active CORTISPORIN 3.5-95027-3 SOLN apply 4 gtt in affected ear [...] units at night Nov 01, 2013 Active Immunizations Vaccine Date [...] - 8462-4 BP DIASTOLIC 89 mm Hg Results Date Description Test Name [...] 03, 2013 urea nitrogen/creatinine ratio, serum BUN/CREAT null -Nov 03, 2013 albumin, serum ALBUMIN [...] 03, 2013 urea nitrogen/creatinine ratio, serum BUN/CREAT null -Nov 03, 2013 albumin, serum ALBUMIN [...] urea nitrogen, blood BUN 17 mg/dL 7-22 Jun 23, 2013 urea nitrogen/creatinine ratio, serum BUN/CREAT 21 null 6-25 Jun 23, 2013 albumin, serum ALBUMIN 4.0 g/dL [...] 2014 urea nitrogen, blood BUN 17 mg/dL -Mar 07, 2014 urea nitrogen/creatinine ratio, serum BUN/CREAT [...]
--- OUTSIDE RECORDS SUMMARY | 2019-04-15 22:21 | XMS REPORT | Continuity of Care Document ---
Author Author [facility] Organization [facility] Address Unknown Phone Unavailable Care Team Providers Care Tap And Die Maker Technician Name Role Phone MD Ethan, Meseret [...] REPLACEMENT HMO) [facility] [place] ([place]IC[place]AC[place]) [employer] [employer] - HEALTHSP [employer] [employer]ATION - HEALTHSP [place] [employer]GAN[employer]ATION - HEALTHSP [place] PH[employer]ICAN [employer]GAN[employer]ATION - HEALTHSP [place] PHYSICAN ORGANIZATION - HEALTHSP [place] PHYSICAN ORGANIZATION - HEALTHSP [place] PHYSICAN ORGANIZATION - HEALTHSP [place] PHYSICAN ORGANIZATION - HEALTHSP [employer] PHYSICAN ORGANIZATION - HEALTHSP [employer] PHYSICAN ORGANIZATION - HEALTHSP [employer] PHYSICAN ORGANIZATION - HEALTHSP [employer]ISS[place] PHYSICAN ORGANIZATION - HEALTHSP Encounters Encounter Performer Location Date Lab Report Meseret Long MD [facility] Jan 11, 2015 Problems Problem Effective Dates Problem Status DIAB [...] GRAFT Mar 13, 2014 Inactive ATHEROSCLEROSIS OF [place] ARTERIES OF THE EXTREMITIES WITH INTERMITTENT CLAUDICATION [...] use as directed Nov 29, 2013 Active DIABETIC TUSSIN 100 MG/5ML LIQD Take 7 ml every 6 hours as needed for cough December 08, 2013 Inactive ZITHROMAX Z-STIVEN 250 MG TABS use as directed December 08, 2013 Inactive XYZAL 5 MG TABS Take one tablet by mouth once a day as needed runny nose December 08, 2013 Inactive METOPROLOL SUCCINATE ER 100 MG [id number] take one tablet by mouth daily Jan 24, 2014 Active BD INSULIN SYRINGE 31G X 5/16" 0.3 ML MISC use as diredted Nov 01, 2013 Active CORTISPORIN 3.5-35292-2 SOLN apply 4 gtt in affected ear [...] day as needed Oct 13, 2014 Active GLIPIZIDE 10 MG TABS Take one tablet by mouth two times a day December 19, 2013 Active METFORMIN HCL 500 MG TABS take 2 tablets twice a day Nov 11, 2014 Active Immunizations Vaccine Date Status influenza [...] 70 /min Jun 21, 2013 weight Devyn Hill9 WEIGHT 206.38 lb Jun 21, 2013 blood pressure, systolic, second observation BP SYS #2 145 mm Hg Jun 21, 2013 blood pressure, diastolic, second observation BP KRISTEL #2 80 mm Hg Jul 12, 2013 weight Devyn Hill9 WEIGHT 207.50 lb Jul 12, 2013 respiratory [...] mm Hg Nov 29, 2013 weight Devyn Hill9 WEIGHT 206 lb Nov 29, 2013 respiratory [...] platelet count PLATELETS 200 K/CMM /mm3 133-450 Oct 13, 2014 hemoglobin, blood HGB 15.3 g/dL 14.0-18.0 Oct 13, 2014 hematocrit, blood HCT 44.2 % 42.0-54.0 Oct 13, 2014 platelet count PLATELETS 208 K/CMM /mm3 133-450 Nov 03, 2013 hemoglobin [...] 2014 urea nitrogen, blood BUN 19 mg/dL -Jun 28, 2014 urea nitrogen/creatinine ratio, serum BUN/CREAT 19 null -Jun 28, 2014 albumin, serum ALBUMIN 3.6 g/dL 3.5-5.0 Jun 28, 2014 calcium, serum CALCIUM 8.9 mg/dL 8.5-10.5 Jun 28, 2014 alanine aminotransferase (SGPT), serum SGPT (ALT) 17 U/L 0-65 Jun 28, 2014 aspartate aminotransferase (SGOT), serum SGOT (AST) 9 U/L 0-37 Jun 28, 2014 alkaline phosphatase, serum ALK PHOS 129 U/L 39-136 Oct 13, 2014 hemoglobin A1C, blood, as % of total hemoglobin HGBA1C 12.8 % <=5.6 High Oct 13, 2014 thyroid stimulating hormone, serum TSH 1.120 uIU/mL 0.360-3.740 Oct 13, 2014 cholesterol, serum CHOLESTEROL 201 mg/dl <=199 High Oct 13, 2014 triglyceride, serum, fasting TRIGLYCERIDE 217 mg/dl <=149 High Oct 13, 2014 HDL cholesterol, serum HDL 49 mg/dl >=61 Low Oct 13, 2014 LDL cholesterol, serum LDL 109 mg/dl <=99 High Oct 13, 2014 sodium, serum SODIUM 136 MEQ/L mmol/L 135-145 Oct 13, 2014 potassium, serum POTASSIUM 4.0 MEQ/L mmol/L 3.5-5.1 Oct 13, 2014 creatinine, serum CREATININE 0.8 mg/dL 0.5-1.4 Oct 13, 2014 urea nitrogen, blood BUN 15 mg/dL 02-28Oct 13, 2014 urea nitrogen/creatinine ratio, serum BUN/CREAT 19 null -Oct 13, 2014 albumin, serum ALBUMIN 3.6 g/dL 3.5-5.0 Oct 13, 2014 calcium, serum CALCIUM 8.8 mg/dL 8.5-10.5 Oct 13, 2014 alanine aminotransferase (SGPT), serum SGPT (ALT) 19 U/L 0-65 Oct 13, 2014 aspartate aminotransferase (SGOT), serum SGOT (AST) 10 U/L 0-37 Oct 13, 2014 alkaline phosphatase, serum ALK PHOS 103 U/L 39-136 Oct 13, 2014 prostate specific antigen PSA 0.33 ng/mL 0.00-4.00 Jan 11, 2015 hemoglobin A1C, blood, as % of total hemoglobin HGBA1C 13.7 % <=5.6 High Jan 11, 2015 sodium, serum SODIUM 137 MEQ/L mmol/L 135-145 Jan 11, 2015 potassium, serum POTASSIUM 4.2 MEQ/L mmol/L 3.5-5.1 Jan 11, 2015 creatinine, serum CREATININE 0.8 mg/dL 0.5-1.4 Jan 11, 2015 urea nitrogen, blood BUN 15 mg/dL 7-22 Jan 11, 2015 urea nitrogen/creatinine ratio, serum BUN/CREAT 19 null 6-25 Jan 11, 2015 albumin, serum ALBUMIN 3.4 g/dL 3.5-5.0 Low Jan 11, 2015 calcium, serum CALCIUM 9.1 mg/dL 8.5-10.5 Jan 11, 2015 alanine aminotransferase (SGPT), serum SGPT (ALT) 20 U/L 0-65 Jan 11, 2015 aspartate aminotransferase (SGOT), serum SGOT (AST) 9 U/L 0-37 Jan 11, 2015 alkaline phosphatase, serum ALK PHOS 106 U/L 39-136 Jun 21, 2013 urine color [...]
--- OUTSIDE RECORDS SUMMARY | 2019-04-15 22:21 | XMS REPORT | Continuity of Care Document ---
Author Author [facility] Organization [facility] Address Unknown Phone Unavailable Care Team Providers Care Podiatrist Name Role Phone MD Ethan, Meseret VARGAS [...] REPLACEMENT HMO) [employer] [place]IC[place]AC[place]) [employer] - HEALTHSP [employer] PHYSICAN ORGAN[employer]ATION - HEALTHSP RENAdara [employer] PHYSICAN ORGANIZATION - HEALTHSP RENAdara [employer]ar[employer] PHYSICAN ORGANIZATION - HEALTHSP RENAISSK SpineAN ORGANIZATION - HEALTHSP Encounters Encounter Performer Location Date Lab Report Meseret Long MD [facility] Oct 13, 2014 Problems [...] GRAFT Mar 13, 2014 Inactive ATHEROSCLEROSIS OF [place] ARTERIES OF THE EXTREMITIES WITH INTERMITTENT CLAUDICATION [...] 2013 Inactive METOPROLOL SUCCINATE ER 100 MG [id number] take one tablet by mouth daily Jan 24, 2014 Active BD INSULIN SYRINGE 31G X 5/16" 0.3 ML MISC use as diredted Nov 01, 2013 Active CORTISPORIN 3.5-04796-2 SOLN apply 4 gtt in affected ear [...] 2014 urea nitrogen, blood BUN 15 mg/dL 7-Oct 13, 2014 urea nitrogen/creatinine ratio, serum BUN/CREAT 19 null 6-25 Oct 13, 2014 albumin, serum ALBUMIN 3.6 g/dL 3.5-5.0 Oct 13, 2014 calcium, serum CALCIUM 8.8 mg/dL 8.5-10.5 Oct 13, 2014 alanine aminotransferase (SGPT), serum SGPT (ALT) 19 U/L 0-65 Oct 13, 2014 aspartate aminotransferase (SGOT), serum SGOT (AST) 10 U/L 0-37 Oct 13, 2014 alkaline phosphatase, serum ALK PHOS 103 U/L 39-136 Oct 13, 2014 prostate specific antigen PSA 0.33 ng/mL 0.00-4.00 Jun 21, 2013 urine color [...]
--- OUTSIDE RECORDS SUMMARY | 2019-04-15 22:21 | XMS REPORT ---
Author [facility] Address Unknown Phone Unavailable Care Team Providers Care Manager Trade Name Role Phone Unavailable Unavailable Payers Payer Name Policy Type Policy Number Effective Date Expiration Date Problems This patient has no known problems. Allergies, Adverse Reactions, Alerts Allergy Name Allergy Type Status Severity Reaction(s) Onset Date Inactive Date Treating Clinician Comments No Known Allergies DA Active U 2019-02-27 00:00:00 No Known Allergies DA Active U 2018-02-26 00:00:00 Medications This patient has no known medications. Results Test Description Test Time Test Comments Text Results Atomic Results Result Comments ALPHA 1 ANTITRYPSIN 2019-03-10 14:09:00 ALPHA 1 ANTITRYPSIN (test code=OOEK0LDS) 212 mg/dL 90-200 Performed At: [facility] Nwzzto39[address] [facility] [address] [place], [place] [id number] CN MD Ph:[phone] [id number] 14:09:00* Test Item Value Reference Range Comments CERULOPLASMIN (test code=CER) 37.3 mg/dL 16.0-31.0 HEMOCHROMATOSIS DNA MUT [id number] 14:09:00* Test Item Value Reference Range Comments HEMACHROM DNA (test code=HEMACHROM) () NO MUTATION IDENTIFIEDInterpretation:This patient's sample was analyzed for the hereditaryhemochromatosis (HH) mutations C282Y, H63D, S65C. Nomutation was identified. The mutations analyzed by [facility] pare most common in the population, and up to 90%of affected Caucasians will have a positive test result.Because this panel does not identify rare HH mutations orHH mutations found in other ethnic groups, there are asmall number of people who may have a negative test but mayactually be affected. The diagnosis of HH should includeclinical findings and other test results such astransferrin-iron saturation and/or serum ferritin studiesand/or liver biopsy. If this patient has a history of HH,in many cases a specific carrier risk can be determinedbased on this negative result.Methodology:DNA Analysis of the HFE gene was performed by PCRamplification followed by restriction enzyme digestionanalyses.Reference:Lizzette JS and Lee AP. (2000). Monica Test 4:97- 101.Lacie HERNANDEZ et al. (1999). AM J Prev Med 16:134-140.Karine Luna (2002). Lancet 360(5354):1673-98.Sasha Noyola et al. (2002). Blood Cells, Molecules. andDiseases. 29(3):418-432.Jaswant Roper et al. (2003). Monica Med. 5(1):1- 8.Lacie HERNANDEZ et al. (2003). Monica Med. 5(4):304-10.This test was developed and its performance characteristicsdetermined by [facility]. It has not been cleared or approvedby the Food and Drug Administration.Genetic counselors are available for health care providersto discuss results at [phone].Ladonna Rubio, PhD, Charis Duarte, PhD, Rui Roberts MRufusSRufus, PhD, Suma Moreno, PhD, Sienna Harrell, PhD, Luis Manuel Thompson, PhD, FACMGPerformed At: [facility] EWL[address] [facility], [place] [id number] Rouse MD Ph:[phone] ALPHA 1 [id number] 10:08:00* Test Item Value Reference Range Comments ALPHA 1 ANTITRYPSIN (test code=ALES9FNE) mg/dL [id number] 10:08:00* Test Item Value Reference Range Comments CERULOPLASMIN (test code=CER) 37.3 mg/dL 16.0-31.0 HEMOCHROMATOSIS DNA MUT [id number] 10:08:00* Test Item Value Reference Range Comments HEMACHROM DNA (test code=HEMACHROM) ALPHA 1 [id number] 10:08:00* Test Item Value Reference Range Comments ALPHA 1 ANTITRYPSIN (test code=DIEK3GPQ) 212 mg/dL 90-200 Performed At: DA [facility] [address] [place], [place] [id number] CN MD Ph:[phone] [id number] 10:08:00* Test Item Value Reference Range Comments CERULOPLASMIN (test code=CER) 37.3 mg/dL 16.0-31.0 HEMOCHROMATOSIS DNA MUT [id number] 10:08:00* Test Item Value Reference Range Comments HEMACHROM DNA (test code=HEMACHROM) ANTINUCLEAR ANTIBODIES [id number] 09:09:00* Test Item Value Reference Range Comments DIVYA SCREEN (test code=ANASCR) Negative Negative Performed At: [facility] [address]qa[address] [place], [place] [id number] Kyle L MD Ph:[phone] [id number] 07:55:00* Test Item Value Reference Range Comments GLUBED (test code=GLUBED) 78 mg/dL 74-106 Performed by certified marine service operator at [facility] [id number] 16:42:00* Test Item Value Reference Range Comments GLUBED (test code=GLUBED) 108 mg/dL 74-106 Performed by certified marine service operator at [facility] [id number] 12:41:00* Test Item Value Reference Range Comments GLUBED (test code=GLUBED) 105 mg/dL 74-106 Performed by certified marine service operator at [facility] [id number] 08:17:00* Test Item Value Reference Range Comments GLUBED (test code=GLUBED) 76 mg/dL 74-106 Performed by certified marine service operator at [facility] ACUTE HEPATITIS [id number] 07:14:00* Test Item Value Reference Range Comments AB HEPATITIS A IGM (test code=HAVMAB) Negative Negative AG HEPAT B SURF (test code=HBSAG) Negative Negative HEPATITIS B CORE ANTIBODY,IGM (test code=HBCMAB) Negative Negative AB HEPATITIS C (test code=HCVAB) <0.1 0.0-0.9 INFCE Result Units: s/co ratio Negative: < 0.8 Indeterminate: 0.8 - 0.9 Positive: > 0.9 The CDC recommends that a positive HCV antibody result be followed up with a HCV Nucleic Acid Amplification test (094315).Performed At: [facility] [id number] Acevedo MD Ph:[phone] ALPHA FETOPROTEIN TUMOR [id number] 07:14:00* Test Item Value Reference Range Comments ALPHA FETOPROTEIN TUMOR MARKER (test code=AFPTM) <0.7 ng/mL 0.0-8.3 [facility] Electrochemiluminescence Immunoassay(ECLIA)Values obtained with different assay methods or kits cannotbe used interchangeably. Results cannot be interpreted asabsolute evidence of the presence or absence of malignantdisease.This test is not interpretable in females.Performed At: [facility] [id number] Acevedo MD Ph:[phone] [id number] 20:35:00* Test Item Value Reference Range Comments GLUBED (test code=GLUBED) 115 mg/dL 74-106 Performed by certified marine service operator at [facility] [id number] 16:21:00* Test Item Value Reference Range Comments GLUBED (test code=GLUBED) 131 mg/dL 74-106 Performed by certified marine service operator at [facility] - US ABDOMEN [id number] 12:08:00 Name: GREGORY NGUYEN [facility] : 1955 Age/S: 63 / M [address] [facility] Unit #: [id number] Loc: [place] [address] Phys: Ron Del Angel MD Acct: [id number] Dis Date: Status: ADM IN PHONE #: [phone] Exam Date: 03/02/2019 1130 FAX #: [phone] Reason: check liver EXAMS: CPT CODE: [id number] ABDOMEN LTD [address]1150 HISTORY: Pain. COMPARISON: CT abdomen and pelvis from February 27, 2019. The liver is hyperechogenic suggesting diffuse fibrofatty infiltration and/or cirrhosis. This limited evaluation for hepatic mass however no discrete lesions. The liver is measuring 15.6 cm in length. No intra or extrahepatic biliary ductal dilatation. CBD is normal at 3.6 mm. Main portal vein is patent with hepatopedal flow and normal spectral waveform. Gallbladder is without gallstones. No pericholecystic fluid. Mild wall thickening which could represent sequela of ascites. Moderate pelvic ascites. Right kidney is free from hydronephrosis and calyceal stones. Normal echogenicity and texture. Right kidney measured 11.1 cm in length. Visualized portions of the IVC, aorta and pancreas are normal although imaged suboptimally. IMPRESSION: Cirrhotic liver without discrete mass. Correlate with serum alpha-fetoprotein. Moderate pelvic ascites. No gallstones with thickened gallbladder wall which could represent sequela of ascites. at 1208 Reported and signed by: Marcello Billings M.D. CC: Summer Werner MD; Ron Del Angel MD; Fely Barrett Technologist: MAURA BRISCOE RT(R),RDIL Trnscb Date/Time: 03/02/2019 (1208) t.SDR.TH4 Orig Print D/T: S: 03/02/2019 (8577) Probe: PAGE 1 Signed Report [id number] 11:54:00* Test Item Value Reference Range Comments GLUBED (test code=GLUBED) 97 mg/dL 74-106 Performed by certified marine service operator at [facility] BASIC METABOLIC [id number] 09:16:00* Test Item Value Reference Range Comments SODIUM (test code=NA) 142 mmol/L 136-145 POTASSIUM (test code=K) 4.0 mmol/L 3.5-5.1 CHLORIDE (test code=CL) 111.0 mmol/L 98-107 CARBON DIOXIDE (test code=CO2) 25.0 mmol/L 21-32 ANION GAP (test code=GAP) 10.0 10-20 GLUCOSE (test code=GLU) 81 mg/dL 74-106 BLOOD UREA NITROGEN (test code=BUN) 51 mg/dL 7-18 RESULT VERIFIED BY REPEAT ANALYSIS GLOMERULAR FILTRATION RATE (test code=GFR) 38 mL/min >=60 Estimated GFR by using Modified MDRD formula.Chronic kidney disease is defined as either kidney damageor GFR <60 mL/min/1.73 m2 for >3 months. CREATININE (test code=CREAT) 1.80 mg/dL 0.7-1.3 BUN/CREATININE RATIO (test code=BUN/CREA) 28.3 10-20 CALCIUM (test code=CA) 8.6 mg/dL 8.5-10.1 [id number] 08:32:00* Test Item Value Reference Range Comments AMMONIA (test code=AMM) 59 umol/L 11-32 CBC W/AUTO [id number] 08:30:00* Test Item Value Reference Range Comments WHITE BLOOD CELL (test code=WBC) 7.7 K/mm3 4.5-12.5 RED BLOOD CELL (test code=RBC) 3.84 mill/mm3 4.0-5.8 HEMOGLOBIN (test code=HGB) 11.9 gram/dL 13.0-17.5 HEMATOCRIT (test code=HCT) 36.3 % 42.0-52.0 MEAN CELL VOLUME (test code=MCV) 94.5 fL 80-98 MEAN CELL HGB (test code=MCH) 31.0 picogram 27.0-33.0 MEAN CELL HGB CONCETRATION (test code=MCHC) 32.8 gram/dL 33.0-36.0 RED CELL DISTRIBUTION WIDTH (test code=RDW) 16.0 % 11.6-16.2 RED CELL DISTRIBUTION WIDTH SD (test code=RDW-SD) 54.8 fL 37.0-51.0 PLATELET COUNT (test code=PLT) 156 K/mm3 150-450 MEAN PLATELET VOLUME (test code=MPV) 10.8 fL 6.7-11.0 NEUTROPHIL % (test code=NT%) 65.8 % 39.0-69.0 IMMATURE GRANULOCYTE % (test code=IG%) 0.3 % 0.0-5.0 LYMPHOCYTE % (test code=LY%) 12.9 % 25.0-55.0 MONOCYTE % (test code=MO%) 8.3 % 0.0-10.0 EOSINOPHIL % (test code=EO%) 12.3 % 0.0-5.0 BASOPHIL % (test code=BA%) 0.4 % 0.0-1.0 NUCLEATED RBC % (test code=NRBC%) 0.0 % 0-0 NEUTROPHIL # (test code=NT#) 5.07 K/mm3 1.8-7.7 IMMATURE GRANULOCYTE # (test code=IG#) 0.02 x10 3/uL 0-0.03 LYMPHOCYTE # (test code=LY#) 0.99 K/mm3 1.0-5.0 MONOCYTE # (test code=MO#) 0.64 K/mm3 0-0.8 EOSINOPHIL # (test code=EO#) 0.95 K/mm3 0.0-0.5 BASOPHIL # (test code=BA#) 0.03 K/mm3 0.0-0.2 NUCLEATED RBC # (test code=NRBC#) 0.00 K/mm3 0.0-0.1 [id number] 07:43:00* Test Item Value Reference Range Comments GLUBED (test code=GLUBED) 75 mg/dL 74-106 Performed by certified marine service operator at [facility] [id number] 17:30:00* Test Item Value Reference Range Comments GLUBED (test code=GLUBED) 144 mg/dL 74-106 Performed by certified marine service operator at [facility] FLUID,[id number] 13:56:00 RUN DATE: 03/01/19 [facility] - [facility] PAGE 1 RUN TIME: 1356 Specimen Inqui ry RUN USER: INTERFACE PATIENT: GREGORY NGUYEN ACCT #: [id number] LOC: NATI #: [id number] AGE/SX: 63/M ROOM: [facility] RE02/28/19REG DR: Fely Barrett MD : 53 BED: B DIS: STATUS: ADM IN TLOC: SPEC #: [id number] RECD: 02/28/19 STATUS: PIPO RE #: [id number] [id number] [place]: 02/28/19- [facility] DR: Vincent Awan MD ENTERED: 02/28/19 SP TYPE: FL ASCITES OTHR DR: Summer Jackson MD, Maurice S MDORDERED: GROSS COPIES TO: Summer Werner MD [address] [place] [address] Ron Del Angel MD [address] [place] [address] Vincent Awan MD [address] [place], [place] [id number] PROCEDURES: GROSS (03/01/19-1217) TISSUES: ASCITES FLUID - 7 ML CHUCK CLINICAL HISTORY COLLECTION DATE: 02/28/2019 ASCITES COMMENT Two concentrated smears, a cytospin and cell block are prepared from the fluid. FINAL DIAGNOSIS Ascites fluid, cytology: NEGATIVE FOR MALIGNANCY MACROPHAGES, MESOTHELIAL CELLS, MIXED INFLAMMATORY CELLS AND BLOOD RRB/perlita D CONTINUED ON NEXT PAGE RUN DATE: 03/01/19 [facility] [employer] [facility] PAGE 2 RUN TIME: 1356 Specimen Inqui ry RUN USER: INTERFACE SPEC #: [id number] PATIENT: GREGORY NGUYEN ANASTACIO #[id number] (Continued) FINAL DIAGNOSIS (Continued) 14279, 47860 MACROSCOPIC The specimen con sists of 7 mL of chuck colored fluid for concentration and evaluation. MICROSCOPIC All of the stains, including any controls performed, stain a ppropriately. MICROSCOPIC PERFORMED AT [facility] PATH[facility]Y [address] [facility] [place] [id number] (p)[phone] PERFORM[address] SITE Diagnosis performed at: [facility] [address] [facility], [place] [address] Signed SIGNATURE ON FILE Ha Argueta MD 03/01/19 1356 END OF REPORT AMMONIA 2019-03-01 12:15:00* Test Item Value Reference Range Comments AMMONIA (test code=AMM) 69 umol/L 11-32 COMPREHENSIVE METABOLIC [id number] 11:25:00* Test Item Value Reference Range Comments SODIUM (test code=NA) 142 mmol/L 136-145 POTASSIUM (test code=K) 3.8 mmol/L 3.5-5.1 CHLORIDE (test code=CL) 110.0 mmol/L 98-107 CARBON DIOXIDE (test code=CO2) 24.0 mmol/L 21-32 ANION GAP (test code=GAP) 11.8 10-20 GLUCOSE (test code=GLU) 136 mg/dL 74-106 BLOOD UREA NITROGEN (test code=BUN) 67 mg/dL 7-18 GLOMERULAR FILTRATION RATE (test code=GFR) 29 mL/min >=60 Estimated GFR by using Modified MDRD formula.Chronic kidney disease is defined as either kidney damageor GFR <60 mL/min/1.73 m2 for >3 months. CREATININE (test code=CREAT) 2.30 mg/dL 0.7-1.3 BUN/CREATININE RATIO (test code=BUN/CREA) 29.0 10-20 TOTAL PROTEIN (test code=PROT) 6.7 gram/dL 6.4-8.2 ALBUMIN (test code=ALB) 2.9 g/dL 3.4-5.0 GLOBULIN (test code=GLOB) 3.8 gram/dL 2.7-4.2 ALBUMIN/GLOBULIN RATIO (test code=A/G) 0.8 0.75-1.50 CALCIUM (test code=CA) 8.5 mg/dL 8.5-10.1 BILIRUBIN TOTAL (test code=BILT) 0.70 mg/dL 0.0-1.0 SGOT/AST (test code=AST) 23 IUnit/L 15-37 SGPT/ALT (test code=ALT) 18 IUnit/L 12-78 ALKALINE PHOSPHATASE TOTAL (test code=ALKP) 220 IUnit/L 45-117 Note change in reference range due to change in reagent. [id number] 07:35:00* Test Item Value Reference Range Comments GLUBED (test code=GLUBED) 101 mg/dL 74-106 Performed by certified marine service operator at [facility] CBC W/AUTO [id number] 07:20:00* Test Item Value Reference Range Comments WHITE BLOOD CELL (test code=WBC) 8.8 K/mm3 4.5-12.5 RED BLOOD CELL (test code=RBC) 3.66 mill/mm3 4.0-5.8 HEMOGLOBIN (test code=HGB) 11.2 gram/dL 13.0-17.5 HEMATOCRIT (test code=HCT) 35.5 % 42.0-52.0 MEAN CELL VOLUME (test code=MCV) 97.0 fL 80-98 MEAN CELL HGB (test code=MCH) 30.6 picogram 27.0-33.0 MEAN CELL HGB CONCETRATION (test code=MCHC) 31.5 gram/dL 33.0-36.0 RED CELL DISTRIBUTION WIDTH (test code=RDW) 16.1 % 11.6-16.2 RED CELL DISTRIBUTION WIDTH SD (test code=RDW-SD) 57.5 fL 37.0-51.0 PLATELET COUNT (test code=PLT) 150 K/mm3 150-450 MEAN PLATELET VOLUME (test code=MPV) 10.5 fL 6.7-11.0 NEUTROPHIL % (test code=NT%) 66.6 % 39.0-69.0 IMMATURE GRANULOCYTE % (test code=IG%) 0.5 % 0.0-5.0 LYMPHOCYTE % (test code=LY%) 12.0 % 25.0-55.0 MONOCYTE % (test code=MO%) 10.3 % 0.0-10.0 EOSINOPHIL % (test code=EO%) 10.1 % 0.0-5.0 BASOPHIL % (test code=BA%) 0.5 % 0.0-1.0 NUCLEATED RBC % (test code=NRBC%) 0.0 % 0-0 NEUTROPHIL # (test code=NT#) 5.85 K/mm3 1.8-7.7 IMMATURE GRANULOCYTE # (test code=IG#) 0.04 x10 3/uL 0-0.03 LYMPHOCYTE # (test code=LY#) 1.05 K/mm3 1.0-5.0 MONOCYTE # (test code=MO#) 0.90 K/mm3 0-0.8 EOSINOPHIL # (test code=EO#) 0.89 K/mm3 0.0-0.5 BASOPHIL # (test code=BA#) 0.04 K/mm3 0.0-0.2 NUCLEATED RBC # (test code=NRBC#) 0.00 K/mm3 0.0-0.1 MANUAL DIFF REQUIRED (test code=MDIFF) NO [id number] 20:47:00* Test Item Value Reference Range Comments GLUBED (test code=GLUBED) 147 mg/dL 74-106 Performed by certified marine service operator at [facility] BODY FLUID CELL [id number] 18:56:00* Test Item Value Reference Range Comments FLUID SOURCE (test code=SOURCEFL) ASCITES FLD FLUID COLOR (test code=COLFL) YELLOW COLORLESS FLUID APPEARANCE (test code=APPFL) CLEAR FLUID WBC AUTO (test code=WBCFLA) 206 cells/uL FLUID RBC AUTO (test code=RBCFLA) 8000 cells/uL FLUID TOTAL CELLS (test code=TCFL) 259 cells/uL >0 Fluid WBC RBC PMN% MN%Type cells/uL cells/uL CSF (0-5) n/a (2+/-4) (90+/-20)Peritoneal n/a n/a n/a n/aPleural n/a n/a n/a n/aSynovial <200 n/a <25% <75% CSF (0-30) n/a (4+/-4) (90+/-20) FLUID POLY (test code=POLYFL) 17.3 % FLUID LYMPHOCYTE (test code=LYMPHFL) 20.0 % FLUID EOSINOPHIL (test code=EOSFL) 0.0 % FLUID BASOPHIL (test code=BASOFL) 0.0 % FLUID MACROPHAGE (test code=MACFL) 53.6 % FLUID OTHER CELL (test code=OTHERFL) 9.1 % TOTAL CELLS COUNTED ON DIFF (test code=TOTCELLFL) 110 cells REVIEWED BY (test code=REVIEW) HA HAMILTON PATHOLOGIST SPECIMEN COMMENTS: ASCITES FLUIDFLUID [id number] 18:56:00* Test Item Value Reference Range Comments FLUID PH (test code=PHFL) 7.0 6.8-7.6 SPECIMEN COMMENTS: ASCITES FLUIDFLUID [id number] 18:56:00* Test Item Value Reference Range Comments FLUID GLUCOSE (test code=GLUFL) 120 mg/dL SPECIMEN COMMENTS: ASCITES FLUIDFLUID [id number] 18:56:00* Test Item Value Reference Range Comments FLUID PROTEIN (test code=PROTFL) 4.7 gram/dL SPECIMEN COMMENTS: ASCITES FLUIDFLUID [id number] 18:56:00* Test Item Value Reference Range Comments FLUID LDH (test code=LDHFL) 110 IUnit/L SPECIMEN COMMENTS: ASCITES FLUIDFLUID [id number] 18:56:00* Test Item Value Reference Range Comments FLUID CHOLESTEROL (test code=CHOLFL) 64 mg/dL [SPECIMEN TYPE:] SPECIMEN COMMENTS: ASCITES FLUIDFLUID [id number] 18:56:00* Test Item Value Reference Range Comments FLUID TRIGLYCERIDE (test code=TRIGFL) 70 mg/dL [SPECIMEN TYPE:] SPECIMEN COMMENTS: ASCITES [id number] 16:08:00* Test Item Value Reference Range Comments GLUBED (test code=GLUBED) 147 mg/dL 74-106 Performed by certified marine service operator at [facility] BODY FLUID CELL [id number] 14:53:00* Test Item Value Reference Range Comments FLUID SOURCE (test code=SOURCEFL) ASCITES FLD FLUID COLOR (test code=COLFL) YELLOW COLORLESS FLUID APPEARANCE (test code=APPFL) CLEAR FLUID WBC AUTO (test code=WBCFLA) 206 cells/uL FLUID RBC AUTO (test code=RBCFLA) 8000 cells/uL FLUID TOTAL CELLS (test code=TCFL) 259 cells/uL >0 Fluid WBC RBC PMN% MN%Type cells/uL cells/uL CSF (0-5) n/a (2+/-4) (90+/-20)Peritoneal n/a n/a n/a n/aPleural n/a n/a n/a n/aSynovial <200 n/a <25% <75% CSF (0-30) n/a (4+/-4) (90+/-20) FLUID POLY (test code=POLYFL) 17.3 % FLUID LYMPHOCYTE (test code=LYMPHFL) 20.0 % FLUID EOSINOPHIL (test code=EOSFL) 0.0 % FLUID BASOPHIL (test code=BASOFL) 0.0 % FLUID MACROPHAGE (test code=MACFL) 53.6 % FLUID OTHER CELL (test code=OTHERFL) 9.1 % TOTAL CELLS COUNTED ON DIFF (test code=TOTCELLFL) 110 cells REVIEWED BY (test code=REVIEW) PATHOLOGIST SPECIMEN COMMENTS: ASCITES FLUIDFLUID [id number] 14:53:00* Test Item Value Reference Range Comments FLUID PH (test code=PHFL) 7.0 6.8-7.6 SPECIMEN COMMENTS: ASCITES FLUIDFLUID [id number] 14:53:00* Test Item Value Reference Range Comments FLUID GLUCOSE (test code=GLUFL) 120 mg/dL SPECIMEN COMMENTS: ASCITES FLUIDFLUID [id number] 14:53:00* Test Item Value Reference Range Comments FLUID PROTEIN (test code=PROTFL) 4.7 gram/dL SPECIMEN COMMENTS: ASCITES FLUIDFLUID [id number] 14:53:00* Test Item Value Reference Range Comments FLUID LDH (test code=LDHFL) 110 IUnit/L SPECIMEN COMMENTS: ASCITES FLUIDFLUID [id number] 14:53:00* Test Item Value Reference Range Comments FLUID CHOLESTEROL (test code=CHOLFL) 64 mg/dL [SPECIMEN TYPE:] SPECIMEN COMMENTS: ASCITES FLUIDFLUID [id number] 14:53:00* Test Item Value Reference Range Comments FLUID TRIGLYCERIDE (test code=TRIGFL) 70 mg/dL [SPECIMEN TYPE:] SPECIMEN COMMENTS: ASCITES FLUIDBODY FLUID CELL [id number] 14:50:00* Test Item Value Reference Range Comments FLUID SOURCE (test code=SOURCEFL) FLUID COLOR (test code=COLFL) COLORLESS FLUID APPEARANCE (test code=APPFL) FLUID WBC (test code=WBCFL) per mm3 0-150 FLUID WBC AUTO (test code=WBCFLA) 206 cells/uL FLUID RBC (test code=RBCFL) per mm3 0-50 FLUID RBC AUTO (test code=RBCFLA) 8000 cells/uL FLUID TOTAL CELLS (test code=TCFL) 259 cells/uL >0 Fluid WBC RBC PMN% MN%Type cells/uL cells/uL CSF (0-5) n/a (2+/-4) (90+/-20)Peritoneal n/a n/a n/a n/aPleural n/a n/a n/a n/aSynovial <200 n/a <25% <75% CSF (0-30) n/a (4+/-4) (90+/-20) FLUID POLY (test code=POLYFL) 17.3 % FLUID LYMPHOCYTE (test code=LYMPHFL) 20.0 % FLUID EOSINOPHIL (test code=EOSFL) 0.0 % FLUID BASOPHIL (test code=BASOFL) 0.0 % FLUID MACROPHAGE (test code=MACFL) 53.6 % FLUID OTHER CELL (test code=OTHERFL) 9.1 % TOTAL CELLS COUNTED ON DIFF (test code=TOTCELLFL) cells REVIEWED BY (test code=REVIEW) PATHOLOGIST SPECIMEN COMMENTS: ASCITES FLUIDFLUID [id number] 14:50:00* Test Item Value Reference Range Comments FLUID PH (test code=PHFL) 6.8-7.6 SPECIMEN COMMENTS: ASCITES FLUIDFLUID [id number] 14:50:00* Test Item Value Reference Range Comments FLUID GLUCOSE (test code=GLUFL) 120 mg/dL SPECIMEN COMMENTS: ASCITES FLUIDFLUID [id number] 14:50:00* Test Item Value Reference Range Comments FLUID PROTEIN (test code=PROTFL) 4.7 gram/dL SPECIMEN COMMENTS: ASCITES FLUIDFLUID [id number] 14:50:00* Test Item Value Reference Range Comments FLUID LDH (test code=LDHFL) 110 IUnit/L SPECIMEN COMMENTS: ASCITES FLUIDFLUID [id number] 14:50:00* Test Item Value Reference Range Comments FLUID CHOLESTEROL (test code=CHOLFL) 64 mg/dL [SPECIMEN TYPE:] SPECIMEN COMMENTS: ASCITES FLUIDFLUID [id number] 14:50:00* Test Item Value Reference Range Comments FLUID TRIGLYCERIDE (test code=TRIGFL) 70 mg/dL [SPECIMEN TYPE:] SPECIMEN COMMENTS: ASCITES FLUIDBODY FLUID CELL [id number] 14:22:00* Test Item Value Reference Range Comments FLUID SOURCE (test code=SOURCEFL) FLUID COLOR (test code=COLFL) COLORLESS FLUID APPEARANCE (test code=APPFL) FLUID WBC (test code=WBCFL) per mm3 0-150 FLUID WBC AUTO (test code=WBCFLA) 206 cells/uL FLUID RBC (test code=RBCFL) per mm3 0-50 FLUID RBC AUTO (test code=RBCFLA) 8000 cells/uL FLUID TOTAL CELLS (test code=TCFL) 259 cells/uL >0 Fluid WBC RBC PMN% MN%Type cells/uL cells/uL CSF (0-5) n/a (2+/-4) (90+/-20)Peritoneal n/a n/a n/a n/aPleural n/a n/a n/a n/aSynovial <200 n/a <25% <75% CSF (0-30) n/a (4+/-4) (90+/-20) TOTAL CELLS COUNTED ON DIFF (test code=TOTCELLFL) cells REVIEWED BY (test code=REVIEW) PATHOLOGIST SPECIMEN COMMENTS: ASCITES FLUIDFLUID [id number] 14:22:00* Test Item Value Reference Range Comments FLUID PH (test code=PHFL) 6.8-7.6 SPECIMEN COMMENTS: ASCITES FLUIDFLUID [id number] 14:22:00* Test Item Value Reference Range Comments FLUID GLUCOSE (test code=GLUFL) 120 mg/dL SPECIMEN COMMENTS: ASCITES FLUIDFLUID [id number] 14:22:00* Test Item Value Reference Range Comments FLUID PROTEIN (test code=PROTFL) 4.7 gram/dL SPECIMEN COMMENTS: ASCITES FLUIDFLUID [id number] 14:22:00* Test Item Value Reference Range Comments FLUID LDH (test code=LDHFL) 110 IUnit/L SPECIMEN COMMENTS: ASCITES FLUIDFLUID [id number] 14:22:00* Test Item Value Reference Range Comments FLUID CHOLESTEROL (test code=CHOLFL) 64 mg/dL [SPECIMEN TYPE:] SPECIMEN COMMENTS: ASCITES FLUIDFLUID [id number] 14:22:00* Test Item Value Reference Range Comments FLUID TRIGLYCERIDE (test code=TRIGFL) 70 mg/dL [SPECIMEN TYPE:] SPECIMEN COMMENTS: ASCITES FLUIDBODY FLUID CELL [id number] 14:05:00* Test Item Value Reference Range Comments FLUID SOURCE (test code=SOURCEFL) FLUID COLOR (test code=COLFL) COLORLESS FLUID APPEARANCE (test code=APPFL) FLUID WBC (test code=WBCFL) per mm3 0-150 FLUID WBC AUTO (test code=WBCFLA) 206 cells/uL FLUID RBC (test code=RBCFL) per mm3 0-50 FLUID RBC AUTO (test code=RBCFLA) 8000 cells/uL FLUID TOTAL CELLS (test code=TCFL) 259 cells/uL >0 Fluid WBC RBC PMN% MN%Type cells/uL cells/uL CSF (0-5) n/a (2+/-4) (90+/-20)Peritoneal n/a n/a n/a n/aPleural n/a n/a n/a n/aSynovial <200 n/a <25% <75% CSF (0-30) n/a (4+/-4) (90+/-20) TOTAL CELLS COUNTED ON DIFF (test code=TOTCELLFL) cells REVIEWED BY (test code=REVIEW) PATHOLOGIST SPECIMEN COMMENTS: ASCITES FLUIDFLUID [id number] 14:05:00* Test Item Value Reference Range Comments FLUID PH (test code=PHFL) 6.8-7.6 SPECIMEN COMMENTS: ASCITES FLUIDFLUID [id number] 14:05:00* Test Item Value Reference Range Comments FLUID GLUCOSE (test code=GLUFL) mg/dL SPECIMEN COMMENTS: ASCITES FLUIDFLUID [id number] 14:05:00* Test Item Value Reference Range Comments FLUID PROTEIN (test code=PROTFL) gram/dL SPECIMEN COMMENTS: ASCITES FLUIDFLUID [id number] 14:05:00* Test Item Value Reference Range Comments FLUID LDH (test code=LDHFL) IUnit/L SPECIMEN COMMENTS: ASCITES FLUIDFLUID [id number] 14:05:00* Test Item Value Reference Range Comments FLUID CHOLESTEROL (test code=CHOLFL) mg/dL SPECIMEN COMMENTS: ASCITES FLUIDFLUID [id number] 14:05:00* Test Item Value Reference Range Comments FLUID TRIGLYCERIDE (test code=TRIGFL) mg/dL SPECIMEN COMMENTS: ASCITES FLUID- SP PARACENTESIS W [id number] 13:28:00 Name: GREGORY NGUYEN [facility] : 1955 Age/S: 63 / M [address] Unit #: [id number] Loc: [place] [address] Phys: Fely Barrett MD Acct: [id number] Dis Date: Status: ADM IN PHONE #: Exam Date: 02/28/2019 1248 FAX #: [phone] Reason: ASCITES EXAMS: CPT CODE: [id number] SP PARACENTESIS W IMAGE 96810 Fluoro Time: DAP (Gy m2 ): Air Kerma (mGy): REASON FOR EXAM: Ascites EXAM ORDER DATE: 02/28/2019 12:16 PM PROCEDURE: Ultrasound guided paracentesis CPT code: 65243, 11923 FINDINGS: After informed consent was obtained, the patient was brought to special procedures. The abdomen was prepped and draped in the usual fashion. All e lements of maximal sterile barrier technique were followed. Diagnostic ult rasound showed moderate ascites. Images of the ascites was submitted to BARBARA DIAZ. 2% local lidocaine was given for local anesthetic. Under real time u ltrasound guidance, an 18 gauge needle was advanced into the abdomen. A gu amol wire was inserted and an 8 Slovenian drainage catheter was inserted in th e abdominal cavity. 7 L of fluid obtained. The catheter was removed and he mostasis obtained. Samples were submitted for lab analysis. MEDICATIONS: None COMPLICATIONS: None. Blood loss: l ess than 5cc. IMPRESSION: 7 L of fluid removed from the abdomen. at 1328 Reported and signed by: Vincent Awan M.D. CC: Summer Keating MD; Fely Barrett Technologist: MELANI BRODERICK [facility] Trnscb Date/Time: 02/28/2019 (8325) Sarina Orig Print D/T: S: 02/28/2019 (0683) PAGE 1 Signed Report [id number] 11:46:00* Test Item Value Reference Range Comments GLUBED (test code=GLUBED) 123 mg/dL 74-106 Performed by certified marine service operator at [facility] [id number] 11:46:00* Test Item Value Reference Range Comments GLUBED (test code=GLUBED) 112 mg/dL 74-106 Performed by certified marine service operator at [facility] BASIC METABOLIC [id number] 06:37:00* Test Item Value Reference Range Comments SODIUM (test code=NA) 141 mmol/L 136-145 POTASSIUM (test code=K) 3.7 mmol/L 3.5-5.1 CHLORIDE (test code=CL) 110.0 mmol/L 98-107 CARBON DIOXIDE (test code=CO2) 24.0 mmol/L 21-32 ANION GAP (test code=GAP) 10.7 10-20 GLUCOSE (test code=GLU) 114 mg/dL 74-106 BLOOD UREA NITROGEN (test code=BUN) 70 mg/dL 7-18 GLOMERULAR FILTRATION RATE (test code=GFR) 30 mL/min >=60 Estimated GFR by using Modified MDRD formula.Chronic kidney disease is defined as either kidney damageor GFR <60 mL/min/1.73 m2 for >3 months. CREATININE (test code=CREAT) 2.20 mg/dL 0.7-1.3 BUN/CREATININE RATIO (test code=BUN/CREA) 31.1 10-20 CALCIUM (test code=CA) 8.4 mg/dL 8.5-10.1 BASIC METABOLIC [id number] 06:26:00* Test Item Value Reference Range Comments SODIUM (test code=NA) 141 mmol/L 136-145 POTASSIUM (test code=K) 3.7 mmol/L 3.5-5.1 CHLORIDE (test code=CL) 110.0 mmol/L 98-107 CARBON DIOXIDE (test code=CO2) mmol/L 21-32 ANION GAP (test code=GAP) 10-20 GLUCOSE (test code=GLU) mg/dL 74-106 BLOOD UREA NITROGEN (test code=BUN) mg/dL 7-18 GLOMERULAR FILTRATION RATE (test code=GFR) mL/min >=60 CREATININE (test code=CREAT) mg/dL 0.7-1.3 BUN/CREATININE RATIO (test code=BUN/CREA) 10-20 CALCIUM (test code=CA) mg/dL 8.5-10.1 CBC W/AUTO [id number] 05:37:00* Test Item Value Reference Range Comments WHITE BLOOD CELL (test code=WBC) 8.4 K/mm3 4.5-12.5 RED BLOOD CELL (test code=RBC) 3.35 mill/mm3 4.0-5.8 HEMOGLOBIN (test code=HGB) 10.4 gram/dL 13.0-17.5 RESULT VERIFIED BY REPEAT ANALYSIS HEMATOCRIT (test code=HCT) 32.2 % 42.0-52.0 MEAN CELL VOLUME (test code=MCV) 96.1 fL 80-98 MEAN CELL HGB (test code=MCH) 31.0 picogram 27.0-33.0 MEAN CELL HGB CONCETRATION (test code=MCHC) 32.3 gram/dL 33.0-36.0 RED CELL DISTRIBUTION WIDTH (test code=RDW) 15.9 % 11.6-16.2 RED CELL DISTRIBUTION WIDTH SD (test code=RDW-SD) 55.0 fL 37.0-51.0 PLATELET COUNT (test code=PLT) 152 K/mm3 150-450 MEAN PLATELET VOLUME (test code=MPV) 10.5 fL 6.7-11.0 NEUTROPHIL % (test code=NT%) 78.9 % 39.0-69.0 IMMATURE GRANULOCYTE % (test code=IG%) 0.4 % 0.0-5.0 LYMPHOCYTE % (test code=LY%) 7.2 % 25.0-55.0 MONOCYTE % (test code=MO%) 8.4 % 0.0-10.0 EOSINOPHIL % (test code=EO%) 4.7 % 0.0-5.0 BASOPHIL % (test code=BA%) 0.4 % 0.0-1.0 NUCLEATED RBC % (test code=NRBC%) 0.0 % 0-0 NEUTROPHIL # (test code=NT#) 6.60 K/mm3 1.8-7.7 IMMATURE GRANULOCYTE # (test code=IG#) 0.03 x10 3/uL 0-0.03 LYMPHOCYTE # (test code=LY#) 0.60 K/mm3 1.0-5.0 MONOCYTE # (test code=MO#) 0.70 K/mm3 0-0.8 EOSINOPHIL # (test code=EO#) 0.39 K/mm3 0.0-0.5 BASOPHIL # (test code=BA#) 0.03 K/mm3 0.0-0.2 NUCLEATED RBC # (test code=NRBC#) 0.00 K/mm3 0.0-0.1 MANUAL DIFF REQUIRED (test code=MDIFF) NO PROTHROMBIN [id number] 22:51:00* Test Item Value Reference Range Comments PROTHROMBIN TIME PATIENT (test code=PTP) 16.8 seconds 9.0-14.0 INTERNATIONAL NORMAL RATIO (test code=INR) 1.4 0.8-1.2 The therapeutic range for oral anticoagulant therapy formost indications is an international normalized ratio (INR)of between 2.0 and 3.0. The recommended therapeutic INRrange for various clinical situations is listed below: Clinical Situation INR range Pulmonary e mbolism treatment (2.0-3.0)Venous thrombosis treatmentVenous thrombosis prophylaxis (high risk surgery)Prevention of systemic embolism from: Acute myocardial infarction Valvular heart disease Atrial fibrillation Mechanical prosthetic heart valves (2.5-3.5) IS PATIENT ON ANTICOAGULANTS? NTHROMBOPLASTIN TIME [id number] 22:51:00* Test Item Value Reference Range Comments THROMBOPLASTIN TIME PARTIAL (test code=PTT) 33.8 seconds 25.0-36.5 IS PATIENT ON ANTICOAGULANTS? [id number] 20:43:00* Test Item Value Reference Range Comments GLUBED (test code=GLUBED) 117 mg/dL 74-106 Performed by certified marine service operator at [facility] - CT ABD PELVIS W/O [id number] 12:23:00 Name: GREGORY NGUYEN [facility] : 1955 Age/S: 63 / M [address] [facility] Unit #: [id number] Loc: [place] [address] Phys: Jose Cobb DO Acct: [id number] Dis Date: Status: REG ER PHONE #: [phone] Exam Date: 02/27/2019 1153 FAX #: [phone] Reason: abd pain EXAMS: CPT CODE: [id number] CT ABD PELVIS W/O CONT 48991 HISTORY: Abdominal pain TECHNIQUE: 5mm axial CT images were obtained through the abdomen and pelvis without contrast. Sagittal and coronal reformatted images were generated. Automated exposure control for dose reduction. COMPARISON: 12/30/18 FINDINGS: Mild bibasilar subsegmental atelectasis and interlobular septal thickening. Cardiomegaly. ICD. Co ronary artery and thoracic aortic vascular calcification. En larged liver with subtle undulating margin. Nonenhanced gallbladder, pancr eas, spleen, adrenal glands, and kidneys are unremarkable. Limited evaluation the GI tract without oral contrast. Stomach, small bowel, appe ndix are unremarkable. Mild distal colon diverticulosis. Moderate ascites. No free air. No lymphadenopathy. Aortoiliac atherosclerotic vascu lar calcification without aneurysm. Urinary bladder is unremarkabl e. Seminal vesicles and prostate gland are unremarkable. Pelvic ascites. Mild anasarca. Degenerative changes of the spine, sacral iliac join ts, and hips. Bilateral femoropopliteal bypass. IM PRESSION: Enlarged liver with subtle undulating margin, sugge sting underlying cirrhosis. Moderate ascites. Mild dis narinder colon diverticulosis at 1223 Reported and signed by: Lindsay Hooper PAGE 1 Signed Report (VICENTE NUED) Name: GREGORY NGUYEN [facility] : 1955 Age/S: 63 / M [address] [facility] Unit #: [id number] Loc: [place] [address] Phys: Jose Pearl DO Acct: [id number] Dis Date: Status: REG ER PHON E #: [phone] Exam Date: 02/27/2019 1153 FAX #: Reason: abd pain EXAMS : CPT CODE: [id number] CT ABD PELVIS W/O CONT 29325 <Continued> CC: Boccardo-Rogerio,Summer E MD; Jsoe Cobb DO Technologist:MALDONADO MICHAEL, RT(R) CT CTDI: DLP: Trnscb Date/Time: 02/27/2019 (3865) [email or web address] Orig Print D/T: S: 02/27/2019 (7084) PAGE 2 Signed Report BASIC METABOLIC [id number] 11:30:00* Test Item Value Reference Range Comments SODIUM (test code=NA) 140 mmol/L 136-145 POTASSIUM (test code=K) 4.0 mmol/L 3.5-5.1 CHLORIDE (test code=CL) 107.0 mmol/L 98-107 CARBON DIOXIDE (test code=CO2) 24.0 mmol/L 21-32 ANION GAP (test code=GAP) 13.0 10-20 GLUCOSE (test code=GLU) 113 mg/dL 74-106 BLOOD UREA NITROGEN (test code=BUN) 67 mg/dL 7-18 GLOMERULAR FILTRATION RATE (test code=GFR) 29 mL/min >=60 Estimated GFR by using Modified MDRD formula.Chronic kidney disease is defined as either kidney damageor GFR <60 mL/min/1.73 m2 for >3 months. CREATININE (test code=CREAT) 2.30 mg/dL 0.7-1.3 BUN/CREATININE RATIO (test code=BUN/CREA) 28.9 10-20 CALCIUM (test code=CA) 9.1 mg/dL 8.5-10.1 HEPATIC FUNCTION [id number] 11:30:00* Test Item Value Reference Range Comments TOTAL PROTEIN (test code=PROT) 8.9 gram/dL 6.4-8.2 ALBUMIN (test code=ALB) 3.8 g/dL 3.4-5.0 GLOBULIN (test code=GLOB) 5.1 gram/dL 2.7-4.2 ALBUMIN/GLOBULIN RATIO (test code=A/G) 0.7 0.75-1.50 BILIRUBIN TOTAL (test code=BILT) 1.00 mg/dL 0.0-1.0 BILIRUBIN DIRECT (test code=BILD) 0.55 mg/dL 0.0-0.20 SGOT/AST (test code=AST) 48 IUnit/L 15-37 SGPT/ALT (test code=ALT) 36 IUnit/L 12-78 ALKALINE PHOSPHATASE TOTAL (test code=ALKP) 335 IUnit/L 45-117 Note change in reference range due to change in reagent. [id number] 11:30:00* Test Item Value Reference Range Comments LIPASE (test code=LIP) 312 U/L 73.0-393.0 [id number] 11:30:00* Test Item Value Reference Range Comments TROPONIN-I (test code=TROPI) <0.015 ng/mL 0-0.045 BASIC METABOLIC [id number] 11:07:00* Test Item Value Reference Range Comments SODIUM (test code=NA) 140 mmol/L 136-145 POTASSIUM (test code=K) 4.0 mmol/L 3.5-5.1 CHLORIDE (test code=CL) 107.0 mmol/L 98-107 CARBON DIOXIDE (test code=CO2) mmol/L 21-32 ANION GAP (test code=GAP) 10-20 GLUCOSE (test code=GLU) mg/dL 74-106 BLOOD UREA NITROGEN (test code=BUN) mg/dL 7-18 GLOMERULAR FILTRATION RATE (test code=GFR) mL/min >=60 CREATININE (test code=CREAT) mg/dL 0.7-1.3 BUN/CREATININE RATIO (test code=BUN/CREA) 10-20 CALCIUM (test code=CA) mg/dL 8.5-10.1 HEPATIC FUNCTION [id number] 11:07:00* Test Item Value Reference Range Comments TOTAL PROTEIN (test code=PROT) gram/dL 6.4-8.2 ALBUMIN (test code=ALB) g/dL 3.4-5.0 GLOBULIN (test code=GLOB) gram/dL 2.7-4.2 ALBUMIN/GLOBULIN RATIO (test code=A/G) 0.75-1.50 BILIRUBIN TOTAL (test code=BILT) mg/dL 0.0-1.0 BILIRUBIN DIRECT (test code=BILD) mg/dL 0.0-0.20 SGOT/AST (test code=AST) IUnit/L 15-37 SGPT/ALT (test code=ALT) IUnit/L 12-78 ALKALINE PHOSPHATASE TOTAL (test code=ALKP) IUnit/L 45-117 [id number] 11:07:00* Test Item Value Reference Range Comments LIPASE (test code=LIP) U/L 73.0-393.0 [id number] 11:07:00* Test Item Value Reference Range Comments TROPONIN-I (test code=TROPI) ng/mL 0-0.045 URINALYSIS [id number] 10:53:00* Test Item Value Reference Range Comments UA COLOR (test code=COLU) YELLOW YELLOW UA APPEARANCE (test code=APPU) CLEAR CLEAR UA GLUCOSE DIPSTICK (test code=DGLUU) NEGATIVE mg/dL NEGATIVE UA BILIRUBIN DIPSTICK (test code=BILU) NEGATIVE mg/dL NEGATIVE UA KETONE DIPSTICK (test code=KETU) NEGATIVE mg/dL NEGATIVE UA SPECIFIC GRAVITY (test code=SGU) 1.014 1.001-1.035 UA BLOOD DIPSTICK (test code=JOSE) 0.2 mg/dL (2+) mg/dL NEGATIVE UA PH DIPSTICK (test code=SHIV) 5.0 5.0-8.0 UA PROTEIN DIPSTICK (test code=PROU) 30 (1+) mg/dL NEGATIVE UA UROBILINIOGEN DIPSTICK (test code=URO) Normal mg/dL NEGATIVE UA NITRITE DIPSTICK (test code=RASHEED) NEGATIVE NEGATIVE UA LEUKOCYTE ESTERASE W REFLEX (test code=LEUUR) NEGATIVE Yovany/uL NEGATIVE UA WBC (test code=WBCU) 0-5 per HPF 0-5 UA RBC (test code=RBCU) 11-20 #/HPF 0-5 UA EPITHELIAL CELLS (test code=EPIU) Few (2-5/hpf) per HPF FEW UA BACTERIA (test code=BACU) FEW #/HPF NONE UA HYALINE CAST (test code=HYALU) 3-5 #/LPF 0-5 UA MUCUS (test code=MUCU) FEW #/LPF FEW Urine Source? Clean CatchCBC W/O [id number] 10:48:00* Test Item Value Reference Range Comments WHITE BLOOD CELL (test code=WBC) 13.4 K/mm3 4.5-12.5 RED BLOOD CELL (test code=RBC) 4.05 mill/mm3 4.0-5.8 HEMOGLOBIN (test code=HGB) 12.7 gram/dL 13.0-17.5 HEMATOCRIT (test code=HCT) 39.5 % 42.0-52.0 MEAN CELL VOLUME (test code=MCV) 97.5 fL 80-98 MEAN CELL HGB (test code=MCH) 31.4 picogram 27.0-33.0 MEAN CELL HGB CONCETRATION (test code=MCHC) 32.2 gram/dL 33.0-36.0 RED CELL DISTRIBUTION WIDTH (test code=RDW) 15.9 % 11.6-16.2 PLATELET COUNT (test code=PLT) 172 K/mm3 150-450 MEAN PLATELET VOLUME (test code=MPV) 10.5 fL 6.7-11.0 - XR CHEST 1 [id number] 10:48:00 FAX: Jt Werner Si [phone] [place]: St: [facility] FAX: Jose Cobb DO Name: GREGORY NGUYEN [facility] : 1955 Age/S: 63/M [address] [facility] Unit #: [id number] Loc: [place] [address] Phys: Jose Cobb DO Acct: [id number] Dis Date: Status: REG ER PHONE #: [phone] Exam Date: 02/27/2019 1040 FAX #: [phone] Reason: pain EXAMS: CPT CODE: [id number] XR CHEST 1 V 74545 HISTORY: pain TECHNIQUE: AP chest x-ray COMPARISON: 02/26/18 FINDINGS: No airspace consolidation or pleural effusion. Mild bibasilar pleural thickening. Elevated right hemidiaphragm. Cardiomegaly. Sternotomy/CABG. ICD. Mediastinal silhouette is unremarkable. Degenerative changes of the spine. I MPRESSION: No acute findings or significant interval change. at 1048 Reported and signed by: Lindsay Levy D.O. CC: Summer Werner MD; Jose Cobb DO Technologist: Maldonado ALMODOVAR(R) Trnscrd Date/Time/By: 02/27/2019 (1048) : By: [email or web address] Orig Print D/T: S: 02/27/2019 (5906) PAGE 1 Signed Report [id number] 07:30:00* Test Item Value Reference Range Comments GLUBED (test code=GLUBED) 100 mg/dL 74-106 Performed by certified marine service operator at [facility] URINALYSIS [id number] 03:11:00* Test Item Value Reference Range Comments UA COLOR (test code=COLU) YELLOW YELLOW UA APPEARANCE (test code=APPU) CLEAR CLEAR UA GLUCOSE DIPSTICK (test code=DGLUU) NEGATIVE mg/dL NEGATIVE UA BILIRUBIN DIPSTICK (test code=BILU) NEGATIVE NEGATIVE UA KETONE DIPSTICK (test code=KETU) NEGATIVE mg/dL NEGATIVE UA SPECIFIC GRAVITY (test code=SGU) 1.010 1.001-1.035 UA BLOOD DIPSTICK (test code=JOSE) 1+ (Small) NEGATIVE UA PH DIPSTICK (test code=SHIV) 5.5 5.0-8.0 UA PROTEIN DIPSTICK (test code=PROU) TRACE (15) mg/dL Neg-15 UA UROBILINIOGEN DIPSTICK (test code=URO) 0.2 mg/dL 0.0-0.2 UA NITRITE DIPSTICK (test code=RASHEED) NEGATIVE NEGATIVE UA LEUKOCYTE ESTERASE W REFLEX (test code=LEUUR) NEGATIVE NEGATIVE UA WBC (test code=WBCU) 0-5 per HPF 0-5 UA RBC (test code=RBCU) 6-10 #/HPF 0-5 UA EPITHELIAL CELLS (test code=EPIU) Few (2-5/hpf) per HPF FEW UA BACTERIA (test code=BACU) FEW #/HPF NONE UA HYALINE CAST (test code=HYALU) 3-5 #/LPF 0-5 UA MUCUS (test code=MUCU) FEW #/LPF FEW Urine Source? Clean CatchURINALYSIS [id number] 01:26:00* Test Item Value Reference Range Comments UA COLOR (test code=COLU) YELLOW UA APPEARANCE (test code=APPU) CLEAR UA BILIRUBIN DIPSTICK (test code=BILU) NEGATIVE UA SPECIFIC GRAVITY (test code=SGU) 1.001-1.035 UA PH DIPSTICK (test code=SHIV) 5.0-8.0 UA UROBILINIOGEN DIPSTICK (test code=URO) mg/dL 0.0-0.2 UA NITRITE DIPSTICK (test code=RASHEED) NEGATIVE UA LEUKOCYTE ESTERASE W REFLEX (test code=LEUUR) NEGATIVE UA WBC (test code=WBCU) 0-5 per HPF 0-5 UA RBC (test code=RBCU) 6-10 #/HPF 0-5 UA EPITHELIAL CELLS (test code=EPIU) Few (2-5/hpf) per HPF FEW UA BACTERIA (test code=BACU) FEW #/HPF NONE UA HYALINE CAST (test code=HYALU) 3-5 #/LPF 0-5 UA MUCUS (test code=MUCU) FEW #/LPF FEW Urine Source? Clean Catch- CT ABD PELVIS W/O [id number] 23:50:00 Name: GREGORY NGUYEN [facility] : 1955 Age/S: 63 / M [address] [facility] Unit #: [id number] Loc: [place] [address] Phys: Vern Marcos MD Acct: [id number] Di s Date: Status: REG ER PHONE #: [phone] Exam Date: 12/30/2018 233 FAX #: [phone] Reason: llq pain EXAMS: CPT CODE: [id number] CT ABD PELVIS W/O CONT 34176 EXAM: - CT ABD PELVIS W/O CONT HISTORY: 63 years -old Male with llq pain JAMES HNIQUE: Contrast - No IV contrast was given. No oral contrast was given Noncontrast phase - abdomen and pelvis including all of kidneys Recon structions - coronal and sagittal planes Automated exposure reduct ion (Auto mA/Smart mA) was utilized in compliance with ACR [employer] COMPARISON: 08/23/2017 FINDINGS: Statements: Lack of intravenous contrast compromises evaluation of abdominopelvic organs and vasculature. Lack of oral contrast compromises evaluation of bowel. Thoracic: Aortic and coronary calcifications are present. Mild dependent atelectasis is present. 6.5 mm nodule demonstrated in the left lower lobe. This is better seen on current exam. Hepatobiliary: The liver is normal without focal lesion. The gallbladder is normal. No biliary dilation. Pancreas: Normal. Spleen: Normal. Adrenals: Normal. Genitourinary: The kidneys are no rmal. There is no evidence of hydronephrosis of either kidney. There is no evidence of renal calculus. Evaluation of the bladder is limited, but no obvious bladder abnormality is present. Gastrointestinal: No bowel obstruction or perienteric inflammation. The appendix is normal. Vascular: Atherosclerotic calcifications are seen within the aorta and branch vessels. Lymphatics: No enlarged lymph nodes by CT size criteria. PAGE 1 Signed Report (CONTINUED) Name: GREGORY NGUYEN [facility] : 1955 Age/S: 63 / M [address] [facility] Unit #: [id number] Loc: [place] [address] Phys: Vern Marcos MD Acct: [id number] Dis Date: Status: REG ER PHONE #: [phone] Exam Date: 12/30/2018 2330 FAX #: [phone] Reason: llq pain EXAMS: CPT CODE: [id number] CT ABD PELVIS W/O CONT 27668 < Continued> Bones/Soft Tissues: No acute osseous findings. No ventral hernias. Peritoneum/Other: No extraluminal air. Ascites is noted throughout the abdomen. IMPRESSION: 1. Small moderate ascites throughout the abdomen. 2. Bibasilar atelectasis. 3. Extensive aortic and coronary calcifications. 4. No evidence of bowel obstruction. 5. 6.5 mm nodule demonstrated in the left lower lobe measured on image 4. This was not visualized on prior study. Follow-up CT chest in 3-6 months is recommended for further evaluation. at 2350 Reported and signed by: Maldonado Croft MD CC: Vern Marcos MD; Summre Keating MD Technologist:FELY MURCIA CT CTDI: DLP: Trnscb Date/Time: 12/30/2018 (7598) [email or web address] Orig Print D/T: S: 12/30/2018 (6386) PAGE 2 Signed Report [id number] 23:43:00* Test Item Value Reference Range Comments MAGNESIUM (test code=MAG) 2.3 mg/dL 1.8-2.4 [id number] 23:18:00* Test Item Value Reference Range Comments TROPONIN-I (test code=TROPI) <0.015 ng/mL 0-0.045 BASIC METABOLIC [id number] 23:18:00* Test Item Value Reference Range Comments SODIUM (test code=NA) 141 mmol/L 136-145 POTASSIUM (test code=K) 3.7 mmol/L 3.5-5.1 CHLORIDE (test code=CL) 104.0 mmol/L 98-107 CARBON DIOXIDE (test code=CO2) 30.0 mmol/L 21-32 ANION GAP (test code=GAP) 10.7 10-20 GLUCOSE (test code=GLU) 99 mg/dL 74-106 BLOOD UREA NITROGEN (test code=BUN) 66 mg/dL 7-18 GLOMERULAR FILTRATION RATE (test code=GFR) 25 mL/min >=60 Estimated GFR by using Modified MDRD formula.Chronic kidney disease is defined as either kidney damageor GFR <60 mL/min/1.73 m2 for >3 months. CREATININE (test code=CREAT) 2.60 mg/dL 0.7-1.3 BUN/CREATININE RATIO (test code=BUN/CREA) 25.4 10-20 CALCIUM (test code=CA) 8.8 mg/dL 8.5-10.1 HEPATIC FUNCTION [id number] 23:18:00* Test Item Value Reference Range Comments TOTAL PROTEIN (test code=PROT) 8.5 gram/dL 6.4-8.2 ALBUMIN (test code=ALB) 3.6 g/dL 3.4-5.0 GLOBULIN (test code=GLOB) 4.9 gram/dL 2.7-4.2 ALBUMIN/GLOBULIN RATIO (test code=A/G) 0.7 0.75-1.50 BILIRUBIN TOTAL (test code=BILT) 0.80 mg/dL 0.0-1.0 BILIRUBIN DIRECT (test code=BILD) 0.47 mg/dL 0.0-0.20 SGOT/AST (test code=AST) 31 IUnit/L 15-37 SGPT/ALT (test code=ALT) 23 IUnit/L 12-78 ALKALINE PHOSPHATASE TOTAL (test code=ALKP) 286 IUnit/L 45-117 Note change in reference range due to change in reagent. [id number] 23:18:00* Test Item Value Reference Range Comments LIPASE (test code=LIP) 191 U/L 73.0-393.0 BASIC METABOLIC [id number] 23:09:00* Test Item Value Reference Range Comments SODIUM (test code=NA) 141 mmol/L 136-145 POTASSIUM (test code=K) 3.7 mmol/L 3.5-5.1 CHLORIDE (test code=CL) 104.0 mmol/L 98-107 CARBON DIOXIDE (test code=CO2) mmol/L 21-32 ANION GAP (test code=GAP) 10-20 GLUCOSE (test code=GLU) mg/dL 74-106 BLOOD UREA NITROGEN (test code=BUN) mg/dL 7-18 GLOMERULAR FILTRATION RATE (test code=GFR) mL/min >=60 CREATININE (test code=CREAT) mg/dL 0.7-1.3 BUN/CREATININE RATIO (test code=BUN/CREA) 10-20 CALCIUM (test code=CA) mg/dL 8.5-10.1 HEPATIC FUNCTION [id number] 23:09:00* Test Item Value Reference Range Comments TOTAL PROTEIN (test code=PROT) gram/dL 6.4-8.2 ALBUMIN (test code=ALB) g/dL 3.4-5.0 GLOBULIN (test code=GLOB) gram/dL 2.7-4.2 ALBUMIN/GLOBULIN RATIO (test code=A/G) 0.75-1.50 BILIRUBIN TOTAL (test code=BILT) mg/dL 0.0-1.0 BILIRUBIN DIRECT (test code=BILD) mg/dL 0.0-0.20 SGOT/AST (test code=AST) IUnit/L 15-37 SGPT/ALT (test code=ALT) IUnit/L 12-78 ALKALINE PHOSPHATASE TOTAL (test code=ALKP) IUnit/L 45-117 [id number] 23:09:00* Test Item Value Reference Range Comments LIPASE (test code=LIP) U/L 73.0-393.0 CBC W/O [id number] 22:52:00* Test Item Value Reference Range Comments WHITE BLOOD CELL (test code=WBC) 9.0 K/mm3 4.5-12.5 RED BLOOD CELL (test code=RBC) 3.98 mill/mm3 4.0-5.8 HEMOGLOBIN (test code=HGB) 12.3 gram/dL 13.0-17.5 HEMATOCRIT (test code=HCT) 38.9 % 42.0-52.0 MEAN CELL VOLUME (test code=MCV) 97.7 fL 80-98 MEAN CELL HGB (test code=MCH) 30.9 picogram 27.0-33.0 MEAN CELL HGB CONCETRATION (test code=MCHC) 31.6 gram/dL 33.0-36.0 RED CELL DISTRIBUTION WIDTH (test code=RDW) 15.1 % 11.6-16.2 PLATELET COUNT (test code=PLT) 138 K/mm3 150-450 MEAN PLATELET VOLUME (test code=MPV) 10.7 fL 6.7-11.0 - XR FOREARM 2 VIEWS [id number] 23:24:00 FAX: Jt Werner [phone] [place]: St: REG FAX: Lamberto Schilling [phone] Name: GREGORY NGUYENLINETTE [facility] : 1955 Age/S: 63/M [address] Unit #: [id number] Loc: [place] [address] Phys: Lamberto GarciaP Acct: [id number] Dis Date: Status: REG ER PHONE #: [phone] Exam Date: 10/17/2018 2315 FAX #: [phone] Reason: DOG BITE EXAMS: CPT CODE: [id number] XR FOREARM [address] [place] [id number] LOCATION: Q15 HISTORY: 63-year-old male who suffered a dog bite to is a right hand and forearm. COMMENT: Radiographs of this patient's right hand and right forearm were o btained. HAND FINDINGS: Frontal, oblique, and latera l projections were included. Soft tissue swelling seen overlying t he dorsum of the hand. No underlying fracture seen and no radiopaque forei gn objects are seen in the area of swelling. The joint spaces and the hand are unremarkable. Heavily calcified arterial anatomy seen in the regional anatomy. FOREARM FINDINGS: Frontal and late ral projections were included. No acute soft tissue injury is seen in the forearm. The underlying skeleton is intact. Again seen are widespr ead the regional arterial vascular calcifications. IMPRESS ION: Soft tissue swelling seen diffusely in the dorsum of this patient's right hand. No radiopaque foreign object is seen. No acute fracture seen in the hand, or forearm. The soft tissues of the forearm are unremarkable. at 2324 Reported and signed by: Maldonado JIMENEZ GE 1 Signed Report (CONTINUED) FAX: Jt Werner Si [phone] [place]: St: REG FAX: Lamberto Westfall [facility] [phone] Name: GREGORY NGUYEN [facility] : 1955 Age/S: 63/M [address] Unit #: [id number] Loc: KELLY Guillory 77 504 Phys: Lamberto Garcia [facility] Acct: [id number] Dis Date: Status: REG ER PHONE #: [phone] Exam Date: 10/17/20182314 FAX #: [phone] Reason: DOG BITE EXAMS: CPT CODE: [id number] XR [place] [address] [place] [address] <Continued> CC: Summer Keating MD; Lamberto Garcia Technologist: Austin Rodríguez RT(R); Sara Warren Trnscrd Date/Time/By: 10/17/2018 (9332) : By: [email or web address] Orig Print D/T: S: 10/17/2018 (8661) PAGE 2 Signed Report - XR HAND 3 + V [id number] 23:24:00 FAX: Jt Werner Si [phone] [place]: St: REG FAX: Lamberto Schilling [facility] [phone] Name: PATRICKGREGORY SMITH [facility] : 1955 Age/S: 63/M [address] [facility] Unit #: [id number] Loc: KELLY Guillory [address] Phys: Lamberto Garcia [facility] Acct: [id number] Dis Date: Status: REG ER PHONE #: [phone] Exam Date: 10/17/20182314 FAX #: [phone] Reason: DOG BITE EXAMS: CPT CODE: [id number] XR HAND 3 + V [place] [address] LOCATION: Q15 HISTORY: 63-year-old male who suffered a dog bite to is a right hand and forearm. COMMENT: Radiographs of this patient's right hand and right forearm were obtained. HAND FINDINGS: Frontal, oblique, and lateral projections were included. Soft tissue swelling seen overlying the dorsum of the hand. No underlying fracture seen and no radiopaque foreign objects are seen in the area of swelling. The joint spaces and the hand are unremarkable. Heavily calcified arterial anatomy seen in the regional anatomy. FOREARM FINDINGS: Frontal and late ral projections were included. No acute soft tissue injury is seen in the forearm. The underlying skeleton is intact. Again seen are widespr ead the regional arterial vascular calcifications. IMPRESS ION: Soft tissue swelling seen diffusely in the dorsum of this patient's right hand. No radiopaque foreign object is seen. No acute fracture seen in the hand, or forearm. The soft tissues of the forearm are unremarkable. at 4905 Reported and signed by: Maldonado Luo M.D. PA GE 1 Signed Report (CONTINUED) FAX: Jt Werner Si [phone] [place]: St: REG FAX: Lamberto Westfall [facility] [phone] Name: GREGORY NGUYEN [facility] : 1955 Age/S: 63/M [address] Unit #: [id number] Loc: [place], [place] [address] Phys: Lamberto GarciaP Acct: [id number] Dis Date: Status: REG ER PHONE #: [phone] Exam Date: 10/17/2018 2315 FAX #: [phone] Reason: DOG BITE EXAMS: CPT CODE: [id number] XR HAND 3 + V RT 10056 <Continued> CC: Summer Keating MD; Lamberto Garcia Technologist: Austin Rodríguez RT(R); Sara Warren Trnscrd Date/Time/By: 10/17/2018 (7437) : By: [email or web address] Orig Print D/T: S: 10/17/2018 (9091) PAGE 2 Signed Report
[2019-04-15 22:23] LABS: BILIRUBIN,URINE NEGATIVE (NEGATIVE); CLARITY,URINE SL CLOUDY (CLEAR); COLOR,URINE YELLOW (YELLOW); KETONES,URINE NEGATIVE (NEGATIVE); LEUKOCYTE ESTERASE ,URINE NEGATIVE (NEGATIVE); NITRITE,URINE NEGATIVE (NEGATIVE); PROTEIN,URINE DIPSTICK NEGATIVE (NEGATIVE); URINE UROBILINOGEN 0.2 mg/dL (0.2 - 1)
[2019-04-15 22:28] VITALS: BP 135/61
--- NOTE | 2019-04-15 22:28 | NUR ---
RECEIVED PATIENT TO ROOM FROM ER VIA STRETCHER. PATIENT AMBULATED TO BED, STEADY GATE NOTED. TELE BOX 28. LUNG SOUNDS CLEAR. BOWEL SOUNDS ACTIVE. R AC 20G IV ASYMPTOMATIC, INTACT, AND PATENT. PAIN REPORTED IN BACK, PATIENT STATES IT IS "JUST A LITTLE BIT." NO EDEMA NOTED. SKIN INTACT. PATIENT ORIENTED TO ROOM. BED LOCKED IN LOWEST POSITION, SIDE RAILS UPX2, CALL LIGHT IN REACH, BED ALARM. PROVIDED PATIENT WITH WALKER FOR USE DURING HOSPITAL STAY.
[2019-04-15 22:32] LABS: BACTERIA,URINE MODERATE /HPF; EPITHELIAL CELLS,URINE FEW /LPF; RBC,URINE 0-5 /HPF (0-5)
[2019-04-16] VITALS (8 sets, daily range): BP systolic 129–150; BP diastolic 60–77
--- NOTE | 2019-04-16 04:30 | NUR ---
PATIENT AMBULATED TO RESTROOM WITH WALKER, STAFF STANDBY. STEADY GAIT NOTED. RETURNED TO BED, BED ALARM ON. BED LOCKED IN LOWEST POSITION, SIDE RAILS UPX2, CALL LIGHT IN REACH.
[2019-04-16 05:31] LABS: BASOPHILS % 0.6 % (0.0-1.0); EOSINOPHILS # (AUTO) 1.4 (0.0-0.4); EOSINOPHILS % 20.5 % (0.0-6.0); HEMATOCRIT 28.5 % (38.2-49.6); HEMOGLOBIN 9.2 g/dL (14.0-18.0); LYMPHOCYTES % 14.7 % (18.0-39.1); MEAN CORPUSCULAR HGB CONC 32.3 g/dL (31-35); MONOCYTES # (AUTO) 0.7 (0.2-0.8); MONOCYTES % 9.8 % (4.4-11.3); NEUTROPHILS # (AUTO) 3.7 (2.1-6.9); NEUTROPHILS % 54.1 % (38.7-80.0); PLATELET COUNT 139 x10e3/uL (140-360); RED BLOOD COUNT 2.97 x10e6/uL (4.3-5.7); RED CELL DISTRIBUTION WIDTH 16.7 % (11.7-14.4)
[2019-04-16 05:53] LABS: CALCIUM 8.6 mg/dL (8.4-10.2); CREATININE, SERUM 4.17 mg/dL (0.72-1.25); MAGNESIUM 2.2 MG/DL (1.3-2.1); PHOSPHORUS 4.7 MG/DL (2.3-4.7); POTASSIUM 5.1 mmol/L (3.5-5.1)
[2019-04-16 06:16] LABS: ANION GAP 19.1 mmol/L (8-16)
[2019-04-16 13:58] LABS: CREATINE KINASE MB 1.8 ng/mL (0-5.0)
[2019-04-16] MEDS ORDERED: DEXTROSE 50% SYRINGE 50 ML IV PRN (14:45)
--- NOTE | 2019-04-16 14:57 | NUR ---
MD NOTIFIED OF ECHO RESULTS 10%, PER MD OK TO WAIT UNTIL THURSDAY FOR IR PARACENTESIS.
[2019-04-16] MEDS ORDERED: DIATRIZOATE MEGL/DIATRIZOA SOD 30 ML BTL PO ONE ×2 (15:14→16:37)
[2019-04-16] MEDS: INSULIN LISPRO 100 UNIT/1 ML 3ML VIAL SQ SCH ×2 (16:18→22:45)
[2019-04-16] MEDS: RIFAXIMIN 550 MG TABLET PO SCH (16:32)
[2019-04-16] MEDS: LACTULOSE SYRUP 20 GM/30 ML UDC PO SCH (16:32)
[2019-04-16] MEDS: GABAPENTIN 100 MG CAP PO SCH ×2 (16:32→22:43)
--- NOTE | 2019-04-16 19:33 | History and Physical ---
PRIMARY CARE PHYSICIAN: Summer Toussaint MD. CONSULTANTS: 1. Jose Diaz MD. 2. Ron Del Angel MD. CHIEF COMPLAINT: [id number] renal failure. HISTORY OF PRESENT ILLNESS: The patient is a 64-year-old male with advanced liver cirrhosis. The patient has chronic kidney disease. The patient was brought in because of increased in renal failure. Potassium is 5.7. BUN and creatinine of 120 and 4.08. The patient on multiple diuretic including Zaroxolyn, spironolactone, and furosemide. The patient has advanced liver cirrhosis. He has also noted that he has abdominal pain with increase in distention. The patient is admitted for further evaluation. PAST MEDICAL HISTORY: RITTER associated with liver cirrhosis. PAST SURGICAL HISTORY: Cholecystectomy. SOCIAL HISTORY: The patient does not smoke or use alcohol. No regular drugs. ALLERGIES: TO NO KNOWN ALLERGIES. HOME MEDICATIONS: Allopurinol, calcitriol, Aricept, gabapentin, Levemir, lactulose, metoprolol, nifedipine, Protonix, Nephro, pravastatin, tramadol, lisinopril, furosemide, spironolactone, and metolazone. PHYSICAL EXAMINATION: VITAL SIGNS: Temperature is 98, blood pressure 129/60, pulse rate is 62, and respirations 18. GENERAL: The patient is slightly confused, but he is not in any distress. Moving all extremities. No focal deficit. HEENT: Normocephalic and atraumatic. Pupils reactive. Anicteric. NECK: Supple grossly. PULMONARY: Diminished breath sounds bilaterally. CARDIOVASCULAR: Regular rate and rhythm. ABDOMEN: Distention with abdominal ascites. Multiple bruises noted. EXTREMITIES: 2+ edema. NEUROLOGIC: No focal deficit. Moving all extremities, although the patient is little confused and poor historian. LABORATORY DATA: Sodium is 142, potassium 5.1, chloride 110, bicarb 18, BUN 120, creatinine 4.17, and glucose is 122. WBC 6.9, hemoglobin 9.2, hematocrit 28.5, and platelets is 139. IMPRESSION: 1. Possible early hepatorenal syndrome giving liver failure, now increase in BUN and creatinine with acute renal failure on chronic kidney disease. 2. Multiple chronic baseline problems. PLAN: Hold off all diuretic. Consultation with Renal and GI. Resume some home medication. Check the patient's lab workup. Rifaximin. We will monitor the patient closely. MD DEISI Cardona/ANIYA /[id number]
--- NOTE | 2019-04-16 19:35 | Diagnostic Imaging Report ---
EXAM: CT Abdomen and Pelvis WITHOUT contrast INDICATION: Abdominal pain. COMPARISON: None. TECHNIQUE: Abdomen and pelvis were scanned utilizing a multidetector helical scanner from the lung base to the pubic symphysis without administration of IV contrast. Absence of intravenous contrast decreases sensitivity for detection of focal lesions and vascular pathology. Coronal and sagittal reformations were obtained. Routine protocol was performed. IV CONTRAST: None. Oral contrast: gastrografin. RADIATION DOSE: Total DLP: 730.9 mGy*cm Estimated effective dose: (DLP x 0.015 x size factor) mSv COMPLICATIONS: None FINDINGS: LINES and TUBES: None. LOWER THORAX: Patchy dependent atelectasis. Mild cardiomegaly. Partially seen AICD lead in the right ventricle. Coronary atherosclerosis. HEPATOBILIARY: Cirrhotic morphology to the liver. No focal hepatic lesions. No biliary ductal dilation. GALLBLADDER: No radio-opaque stones or sludge. No wall thickening. SPLEEN: Splenic atrophy. PANCREAS: No focal masses or ductal dilatation. ADRENALS: No adrenal nodules. KIDNEYS/URETERS: No evidence of hydronephrosis or stone. GI TRACT: No evidence of bowel obstruction or wall thickening. PELVIC ORGANS/BLADDER: Unremarkable. LYMPH NODES: There is a 1.2 cm partially calcified lymph node in the left lower abdomen on series 2 image 83. No suspicious lymphadenopathy in the abdomen or pelvis. VESSELS: Moderate to extensive atherosclerotic calcifications of the abdominal aorta and branch vessels. Incompletely evaluated in the absence of IV contrast. PERITONEUM / RETROPERITONEUM: Moderate to large volume ascites. Mild non-specific stranding between the gastric antrum and colon. No bowel wall thickening. No evidence of free air. BONES: Unremarkable. SOFT TISSUES: Postsurgical changes in the bilateral inguinal regions. Partially seen proximal bilateral superficial femoral artery stents. Small umbilical hernia. IMPRESSION: Cirrhotic liver with moderate to large volume ascites. Mild nonspecific stranding between the gastric antrum and colon, which may be infectious or inflammatory. Suggest follow-up CT to assess for resolution. Signed by: Dr. Flakita Merino MD on 04/16/2019 7:31 PM
--- NOTE | 2019-04-16 20:00 | NUR ---
Received patient from day nurse, patient is alert and oriented x 3. safety and fall precautions maintained as per hospital protocol: bed in lowest position and locked, needed items beside bed and call bed placed close to patient.
--- NOTE | 2019-04-16 20:39 | NUR ---
Report given to Adarsh CARTER.
[2019-04-16] MEDS: DONEPEZIL HCL 5 MG TAB PO SCH (22:43)
[2019-04-16] MEDS: INSULIN GLARGINE 100 UNITS/ML VIAL SQ SCH (22:44)
[2019-04-17] VITALS (7 sets, daily range): BP systolic 117–154; BP diastolic 58–76
[2019-04-17] MEDS: OCTREOTIDE ACETATE 0.1 MG/ML 100MCG AMP SQ SCH ×4 (00:26→21:56)
[2019-04-17] MEDS: SODIUM CHLORIDE 0.9% 1000ML 1,000 ML IV SCH ×2 (00:26→12:41)
[2019-04-17 05:42] LABS: INR 1.3; PROTHROMBIN TIME 16.8 seconds (11.9-14.5)
[2019-04-17 05:43] LABS: PARTIAL THROMBOPLASTIN TIME 36.9 seconds (23.8-35.5)
[2019-04-17] MEDS: TRAMADOL HCL 50 MG TAB PO PRN ×2 (06:06→20:28)
[2019-04-17 06:16] LABS: ANION GAP 17.1 mmol/L (8-16); CALCIUM 8.9 mg/dL (8.4-10.2); CREATININE, SERUM 3.49 mg/dL (0.72-1.25); POTASSIUM 5.1 mmol/L (3.5-5.1)
--- NOTE | 2019-04-17 07:14 | NUR ---
patient endorsed to next shift for continuity of care.
[2019-04-17] MEDS: INSULIN LISPRO 100 UNIT/1 ML 3ML VIAL SQ SCH ×4 (07:30→20:32)
[2019-04-17] MEDS: FOLIC ACID/CYANOCOB/PYRIDOXINE TAB PO SCH (08:49)
[2019-04-17] MEDS: GABAPENTIN 100 MG CAP PO SCH ×3 (08:49→20:28)
[2019-04-17] MEDS: NIFEDIPINE CR 30 MG TAB PO SCH (08:49)
[2019-04-17] MEDS: LACTULOSE SYRUP 20 GM/30 ML UDC PO SCH ×2 (08:49→17:34)
[2019-04-17] MEDS: RIFAXIMIN 550 MG TABLET PO SCH ×2 (08:50→17:34)
[2019-04-17] MEDS: PANTOPRAZOLE SOD 40 MG TABEC PO SCH (08:50)
[2019-04-17] MEDS: CALCITRIOL 0.25 MCG CAP PO SCH (08:50)
[2019-04-17] MEDS: ALLOPURINOL 100 MG TAB PO SCH (08:50)
[2019-04-17] MEDS: METRONIDAZOLE 500MG/NS 100ML 100 ML IV SCH ×3 (09:23→21:45)
[2019-04-17] MEDS: METOCLOPRAMIDE HCL 10 MG/2ML VIAL IV SCH ×3 (09:24→17:34)
[2019-04-17] MEDS: CEFTRIAXONE SOD 1 GM/NS 50 ML 50 ML IV SCH (09:24)
[2019-04-17] MEDS ORDERED: OCTREOTIDE ACETATE IV SCH (11:15)
[2019-04-17] MEDS ORDERED: SODIUM CHLORIDE 0.9% IV SCH (11:15)
[2019-04-17] MEDS ORDERED: OCTREOTIDE ACETATE 500 MCG in SODIUM CHLORIDE 0.9% 250ML 250 ML IV SCH (11:45)
[2019-04-17] MEDS ORDERED: OCTREOTIDE ACETATE 0.1 MG/ML 100MCG AMP IV SCH (15:00)
[2019-04-17] MEDS ORDERED: ALBUMIN 25% 25GM 100ML 0.25 GM/ML BTL IV ONE (15:00)
--- NOTE | 2019-04-17 16:08 | NUR ---
pt completed paracentesis, tolerated well 7900cc removed
[2019-04-17] MEDS: ALBUMIN 25% 25GM 100ML 0.25 GM/ML BTL IV SCH ×2 (17:34→21:40)
--- NOTE | 2019-04-17 18:28 | Consultation ---
DATE OF CONSULTATION: 04/16/2019 Renal Consult HISTORY OF PRESENT ILLNESS: This 64-year-old male with advanced liver cirrhosis was follows usually with Dr. Diaz as outpatient. His previous creatinine was 1.6 to 2. He has been this time came into the hospital with a potassium of 5.7, BUN 120, creatinine 4.08, and was on multiple diuretics. PAST SURGICAL HISTORY: Cholecystectomy and bypass. SOCIAL HISTORY: No smoking, no alcohol, no drugs. PAST MEDICAL HISTORY: RITTER, CKD 3, type 2 diabetes mellitus, hypertension, CAD, and congestive heart failure. HOME MEDICATIONS: Included pravastatin, tramadol, lisinopril, furosemide, lactulose, Levemir, Neurontin, Aricept, calcitriol, allopurinol, nifedipine, metoprolol, spironolactone, and metolazone. ALLERGIES: NO KNOWN DRUG ALLERGIES. FAMILY HISTORY: Noncontributory. PHYSICAL EXAMINATION: GENERAL: Alert, following commands. VITAL SIGNS: Blood pressure 129/60. HEENT: Pupils are equal and reactive to light and accommodation. NECK: No JVD. No bruit. LUNGS: Rhonchi. No rales. HEART: Regular rate and rhythm. No S3, no S4. ABDOMEN: Positive for distention. EXTREMITIES: No clubbing, no cyanosis, no edema. LABORATORY DATA: Sodium 142, potassium 5.1, chloride 110, BUN 120, creatinine 4.17. Urine negative. Urine sodium 27. Hemoglobin 96. ASSESSMENT AND PLAN: 1. Acute kidney failure on chronic kidney disease, stage 3. Differential diagnosis is over-diuresis versus hepatorenal. His urine sodium is 27. At this time, the patient is receiving fluids. Diuretics will be on hold. If no improvement, then it is hepatorenal and it is a worse prognosis. Currently GI is consulted to discuss with GI starting octreotide, albumin, and midodrine if needed in the morning. 2. Chronic kidney disease, stage 3, secondary to type 2 diabetes mellitus. 3. Congestive heart failure. 4. Cirrhosis, which is RITTER and is currently followed by Dr. Del Angel. Michael Espino MD MA/ANIYA /[id number]
[2019-04-17] MEDS: DONEPEZIL HCL 5 MG TAB PO SCH (20:28)
[2019-04-17] MEDS: INSULIN GLARGINE 100 UNITS/ML VIAL SQ SCH (20:32)
[2019-04-18] VITALS (9 sets, daily range): BP systolic 117–137; BP diastolic 60–70
[2019-04-18] MEDS: METOCLOPRAMIDE HCL 10 MG/2ML VIAL IV SCH ×4 (05:05→16:32)
[2019-04-18] MEDS: SODIUM CHLORIDE 0.9% 1000ML 1,000 ML IV SCH ×2 (05:05→21:25)
[2019-04-18] MEDS: METRONIDAZOLE 500MG/NS 100ML 100 ML IV SCH ×3 (05:05→20:58)
[2019-04-18] MEDS: OCTREOTIDE ACETATE 0.1 MG/ML 100MCG AMP SQ SCH ×3 (05:11→20:58)
--- NOTE | 2019-04-18 06:08 | NUR ---
Received patient from day nurse, patient in bed, safety and fall precautions maintained as per hospital protocol: bed in lowest position and locked, needed items beside bed and call shea placed close to patient, yellow socks in place and falling star at the entrance of door. patient is currently stable will continue to monitor. Addendum: 04/18/19 at 0610 by Adarsh Ramirez RN 04/17/19@9138
[2019-04-18 06:28] LABS: BASOPHILS # (AUTO) 0.1 (0.0-0.1); BASOPHILS % 0.7 % (0.0-1.0); EOSINOPHILS # (AUTO) 0.5 (0.0-0.4); EOSINOPHILS % 5.9 % (0.0-6.0); HEMATOCRIT 28.6 % (38.2-49.6); HEMOGLOBIN 9.4 g/dL (14.0-18.0); LYMPHOCYTES # (AUTO) 1.1 (1.0-3.2); LYMPHOCYTES % 14.3 % (18.0-39.1); MEAN CORPUSCULAR HEMOGLOBIN 31.4 pg (28-32); MEAN CORPUSCULAR HGB CONC 32.9 g/dL (31-35); MEAN CORPUSCULAR VOLUME 95.7 fL (81-99); MONOCYTES # (AUTO) 0.9 (0.2-0.8); MONOCYTES % 11.2 % (4.4-11.3); NEUTROPHILS # (AUTO) 5.1 (2.1-6.9); NEUTROPHILS % 67.4 % (38.7-80.0); PLATELET COUNT 134 x10e3/uL (140-360); RED BLOOD COUNT 2.99 x10e6/uL (4.3-5.7); RED CELL DISTRIBUTION WIDTH 16.9 % (11.7-14.4)
[2019-04-18 06:53] LABS: ANION GAP 14.5 mmol/L (8-16); CALCIUM 8.7 mg/dL (8.4-10.2); CREATININE, SERUM 3.33 mg/dL (0.72-1.25); POTASSIUM 4.5 mmol/L (3.5-5.1)
--- NOTE | 2019-04-18 07:22 | NUR ---
patient endorsed to next shift for continuity of care.
[2019-04-18] MEDS: INSULIN LISPRO 100 UNIT/1 ML 3ML VIAL SQ SCH ×4 (07:30→21:00)
[2019-04-18] MEDS: RIFAXIMIN 550 MG TABLET PO SCH ×2 (08:20→15:11)
[2019-04-18] MEDS: ALLOPURINOL 100 MG TAB PO SCH (08:20)
[2019-04-18] MEDS: GABAPENTIN 100 MG CAP PO SCH ×3 (08:20→20:58)
[2019-04-18] MEDS: PANTOPRAZOLE SOD 40 MG TABEC PO SCH (08:20)
[2019-04-18] MEDS: ALBUMIN 25% 25GM 100ML 0.25 GM/ML BTL IV SCH ×3 (08:20→20:58)
[2019-04-18] MEDS: CALCITRIOL 0.25 MCG CAP PO SCH (08:20)
[2019-04-18] MEDS: NIFEDIPINE CR 30 MG TAB PO SCH (08:20)
[2019-04-18] MEDS: LACTULOSE SYRUP 20 GM/30 ML UDC PO SCH ×2 (08:20→15:11)
[2019-04-18] MEDS: FOLIC ACID/CYANOCOB/PYRIDOXINE TAB PO SCH (08:20)
[2019-04-18] MEDS: CEFTRIAXONE SOD 1 GM/NS 50 ML 50 ML IV SCH (11:00)
--- NOTE | 2019-04-18 12:04 | NUR ---
EDUCATED ABOUT IMM, SIGNED, FILED IN CHART, WITH COPY LEFT WITH FAMILY AT BEDSIDE.
[2019-04-18] MEDS: TRAMADOL HCL 50 MG TAB PO PRN ×2 (13:14→21:25)
--- NOTE | 2019-04-18 18:45 | NUR ---
Received report from day RN. The patient is laying on the bed, not in distress. Bed height low, side rails up x2, call light within reach, and wheels lock.
--- NOTE | 2019-04-18 19:21 | NUR ---
Report given to oncoming nurse. Resting in bed with eyes closed. Arousable to verbal stimuli. Respirations even and unlabored. Side rails upx2, call light within reach.
[2019-04-18] MEDS: DONEPEZIL HCL 5 MG TAB PO SCH (20:58)
[2019-04-18] MEDS: INSULIN GLARGINE 100 UNITS/ML VIAL SQ SCH (20:59)
[2019-04-19] VITALS (8 sets, daily range): BP systolic 109–132; BP diastolic 59–72
[2019-04-19] MEDS: METOCLOPRAMIDE HCL 10 MG/2ML VIAL IV SCH ×5 (01:43→23:14)
[2019-04-19] MEDS: METRONIDAZOLE 500MG/NS 100ML 100 ML IV SCH ×3 (05:26→22:50)
[2019-04-19] MEDS: OCTREOTIDE ACETATE 0.1 MG/ML 100MCG AMP SQ SCH ×3 (05:26→21:47)
[2019-04-19 06:20] LABS: BASOPHILS # (AUTO) 0.1 (0.0-0.1); BASOPHILS % 0.6 % (0.0-1.0); EOSINOPHILS # (AUTO) 0.8 (0.0-0.4); EOSINOPHILS % 7.9 % (0.0-6.0); HEMATOCRIT 30.3 % (38.2-49.6); HEMOGLOBIN 9.8 g/dL (14.0-18.0); LYMPHOCYTES % 10.5 % (18.0-39.1); MEAN CORPUSCULAR HEMOGLOBIN 31.4 pg (28-32); MEAN CORPUSCULAR HGB CONC 32.3 g/dL (31-35); MEAN CORPUSCULAR VOLUME 97.1 fL (81-99); MONOCYTES % 10.4 % (4.4-11.3); NEUTROPHILS # (AUTO) 6.7 (2.1-6.9); NEUTROPHILS % 70.3 % (38.7-80.0); PLATELET COUNT 134 x10e3/uL (140-360); RED BLOOD COUNT 3.12 x10e6/uL (4.3-5.7); RED CELL DISTRIBUTION WIDTH 17.2 % (11.7-14.4)
[2019-04-19 06:45] LABS: ALBUMIN 3.9 g/dL (3.5-5.0); ALBUMIN/GLOBULIN RATIO 1.6 (0.8-2.0); ANION GAP 16.6 mmol/L (8-16); CALCIUM 8.7 mg/dL (8.4-10.2); CREATININE, SERUM 3.23 mg/dL (0.72-1.25); POTASSIUM 4.6 mmol/L (3.5-5.1)
[2019-04-19] MEDS: INSULIN LISPRO 100 UNIT/1 ML 3ML VIAL SQ SCH ×4 (07:30→21:47)
[2019-04-19] MEDS: CEFTRIAXONE SOD 1 GM/NS 50 ML 50 ML IV SCH (08:31)
[2019-04-19] MEDS: ALLOPURINOL 100 MG TAB PO SCH (08:32)
[2019-04-19] MEDS: RIFAXIMIN 550 MG TABLET PO SCH ×2 (08:32→15:06)
[2019-04-19] MEDS: CALCITRIOL 0.25 MCG CAP PO SCH (08:32)
[2019-04-19] MEDS: GABAPENTIN 100 MG CAP PO SCH ×3 (08:33→21:47)
[2019-04-19] MEDS: PANTOPRAZOLE SOD 40 MG TABEC PO SCH (08:33)
[2019-04-19] MEDS: FOLIC ACID/CYANOCOB/PYRIDOXINE TAB PO SCH (08:33)
[2019-04-19] MEDS: LACTULOSE SYRUP 20 GM/30 ML UDC PO SCH ×2 (08:35→15:06)
[2019-04-19] MEDS: NIFEDIPINE CR 30 MG TAB PO SCH (08:36)
[2019-04-19] MEDS: ALBUMIN 25% 25GM 100ML 0.25 GM/ML BTL IV SCH ×3 (10:00→21:47)
[2019-04-19] MEDS: TRAMADOL HCL 50 MG TAB PO PRN ×2 (15:06→23:22)
[2019-04-19] MEDS: SODIUM CHLORIDE 0.9% 1000ML 1,000 ML IV SCH (16:18)
--- NOTE | 2019-04-19 19:13 | NUR ---
WALKING ROUNDS PERFORMED, RECEIVED PT LAYING SEMI FOWLERS IN BED, AAOX3, RR EVEN AND NON-LABORED, ON ROOM AIR. NO S/SX OF DISTRESS NOTED. LEFT PT LAYING SEMI FOWLERS IN BED, BED IN LOW LOCKED POSITION, SIDE RAILS UPX2, CALL LIGHT AND PHONE WITHIN REACH.
--- NOTE | 2019-04-19 19:15 | NUR ---
Report given to oncoming nurse of patient's status. Resting in bed, side rails upx2, call light within reach. No s/s of acute distress noted.
[2019-04-19] MEDS: SODIUM BICARBONATE 650 MG TAB PO SCH (19:20)
[2019-04-19] MEDS: DONEPEZIL HCL 5 MG TAB PO SCH (21:47)
[2019-04-19] MEDS: INSULIN GLARGINE 100 UNITS/ML VIAL SQ SCH (21:47)
[2019-04-20] VITALS (8 sets, daily range): BP systolic 105–124; BP diastolic 53–67
[2019-04-20] MEDS: METOCLOPRAMIDE HCL 10 MG/2ML VIAL IV SCH ×2 (06:05→12:04)
[2019-04-20] MEDS: METRONIDAZOLE 500MG/NS 100ML 100 ML IV SCH ×3 (06:05→22:04)
[2019-04-20] MEDS: OCTREOTIDE ACETATE 0.1 MG/ML 100MCG AMP SQ SCH ×3 (06:05→22:03)
[2019-04-20 06:41] LABS: ANION GAP 16.2 mmol/L (8-16); CALCIUM 8.7 mg/dL (8.4-10.2); CREATININE, SERUM 3.38 mg/dL (0.72-1.25); POTASSIUM 4.2 mmol/L (3.5-5.1)
[2019-04-20] MEDS: INSULIN LISPRO 100 UNIT/1 ML 3ML VIAL SQ SCH ×4 (07:30→21:00)
[2019-04-20] MEDS: SODIUM CHLORIDE 0.9% 1000ML 1,000 ML IV SCH (08:00)
[2019-04-20] MEDS: FOLIC ACID/CYANOCOB/PYRIDOXINE TAB PO SCH (08:40)
[2019-04-20] MEDS: GABAPENTIN 100 MG CAP PO SCH ×3 (08:40→21:03)
[2019-04-20] MEDS: PANTOPRAZOLE SOD 40 MG TABEC PO SCH (08:40)
[2019-04-20] MEDS: LACTULOSE SYRUP 20 GM/30 ML UDC PO SCH ×2 (08:40→17:00)
[2019-04-20] MEDS: SODIUM BICARBONATE 650 MG TAB PO SCH (08:40)
[2019-04-20] MEDS: RIFAXIMIN 550 MG TABLET PO SCH ×2 (08:40→17:00)
[2019-04-20] MEDS: CALCITRIOL 0.25 MCG CAP PO SCH (08:40)
[2019-04-20] MEDS: ALLOPURINOL 100 MG TAB PO SCH (08:40)
[2019-04-20] MEDS: NIFEDIPINE CR 30 MG TAB PO SCH (08:40)
[2019-04-20] MEDS: CEFTRIAXONE SOD 1 GM/NS 50 ML 50 ML IV SCH (08:40)
[2019-04-20] MEDS: ALBUMIN 25% 25GM 100ML 0.25 GM/ML BTL IV SCH (09:10)
--- NOTE | 2019-04-20 09:20 | NUR ---
EDUCATED ABOUT IMM, SIGNED, FILED IN CHART, WITH COPY LEFT WITH FAMILY AT BEDSIDE.
[2019-04-20] MEDS: ALBUMIN 25% 25GM 100ML 100 ML IV SCH ×2 (15:01→21:10)
--- NOTE | 2019-04-20 15:57 | Diagnostic Imaging Report ---
PROCEDURE: Ultrasound-guided paracentesis Procedural Personnel Attending physician(s): Juma Hirsch MD Pre-procedure diagnosis: Ascites Post-procedure diagnosis: Same Indication: Ascites with pain or pressure symptoms Additional clinical history: None Complications: No immediate complications. IMPRESSION: Ultrasound-guided paracentesis with drainage of 7900 mL of serous fluid. Plan: Resume care by clinical team. PROCEDURE SUMMARY: - Limited abdominal ultrasound - Ultrasound-guided paracentesis - Additional procedure(s): None PROCEDURE DETAILS: Pre-procedure Consent: Informed consent for the procedure including risks, benefits and alternatives was obtained and time-out was performed prior to the procedure. Preparation: The site was prepared and draped using maximal sterile barrier technique including cutaneous antisepsis. Anesthesia/sedation Level of anesthesia/sedation: No sedation Anesthesia/sedation administered by: Not applicable Initial abdominal ultrasound Initial abdominal ultrasound was performed. Findings: Large ascites. A safe window for paracentesis was identified. Paracentesis Local anesthesia was administered. The peritoneal cavity was accessed and fluid return confirmed position. Ascites was drained. The catheter was then removed, and a sterile bandage was applied. Paracentesis access technique: Real-time ultrasound guidance Catheter placed: 5F Yueh Post-drainage ultrasound: Small ascites Additional Details Additional description of procedure: None Equipment details: None Specimens removed: Abdominal fluid Estimated blood loss (mL): Less than 10 Standardized report: [email or web address] Attestation Signer name: Juma Hirsch MD I attest that I was present for the entire procedure. I reviewed the stored images and agree with the report as written. Signed by: Juma Hirsch MD on 04/20/2019 3:54 PM
[2019-04-20] MEDS: METOCLOPRAMIDE HCL 10 MG TAB PO SCH ×2 (17:00→21:03)
[2019-04-20] MEDS: DONEPEZIL HCL 5 MG TAB PO SCH (21:03)
[2019-04-20] MEDS: INSULIN GLARGINE 100 UNITS/ML VIAL SQ SCH (21:04)
[2019-04-21] VITALS (9 sets, daily range): BP systolic 120–132; BP diastolic 58–72
--- NOTE | 2019-04-21 00:39 | NUR ---
RESTING IN THE BED.TOLERATES DIET.BED LOCKED AND IN LOWEST POSITION.PHONE AND CALL LIGHT WITHIN REACH.INSTRUCTED TO CALL FOR ASSISTANCE NEEDED.
[2019-04-21] MEDS ORDERED: PANTOPRAZOLE 40 MG 10ML VIAL IV STA (03:39)
--- NOTE | 2019-04-21 03:47 | NUR ---
MD CASANOVA WAS IN THE UNIT.MAINTAINING NPO FOR PARACENTESIS.
[2019-04-21] MEDS: METRONIDAZOLE 500MG/NS 100ML 100 ML IV SCH ×3 (05:36→22:24)
[2019-04-21] MEDS: OCTREOTIDE ACETATE 0.1 MG/ML 100MCG AMP SQ SCH ×3 (05:52→22:26)
[2019-04-21 06:49] LABS: ANION GAP 13.1 mmol/L (8-16); CALCIUM 8.6 mg/dL (8.4-10.2); CREATININE, SERUM 3.63 mg/dL (0.72-1.25); POTASSIUM 4.1 mmol/L (3.5-5.1)
--- NOTE | 2019-04-21 06:58 | NUR ---
Bed side shift report given to the oncoming Rn.stable condition.
[2019-04-21] MEDS: METOCLOPRAMIDE HCL 10 MG TAB PO SCH ×4 (07:30→21:13)
[2019-04-21] MEDS: PANTOPRAZOLE SOD 40 MG TABEC PO SCH (07:30)
[2019-04-21] MEDS: INSULIN LISPRO 100 UNIT/1 ML 3ML VIAL SQ SCH ×4 (07:30→20:50)
[2019-04-21] MEDS: CEFTRIAXONE SOD 1 GM/NS 50 ML 50 ML IV SCH (08:27)
[2019-04-21] MEDS: LACTULOSE SYRUP 20 GM/30 ML UDC PO SCH ×2 (08:51→17:43)
[2019-04-21] MEDS: CALCITRIOL 0.25 MCG CAP PO SCH (08:51)
[2019-04-21] MEDS: NIFEDIPINE CR 30 MG TAB PO SCH (08:51)
[2019-04-21] MEDS: FOLIC ACID/CYANOCOB/PYRIDOXINE TAB PO SCH (08:51)
[2019-04-21] MEDS: SODIUM BICARBONATE 650 MG TAB PO SCH (08:51)
[2019-04-21] MEDS: GABAPENTIN 100 MG CAP PO SCH ×3 (08:51→21:13)
[2019-04-21] MEDS: ALLOPURINOL 100 MG TAB PO SCH (08:52)
[2019-04-21] MEDS: RIFAXIMIN 550 MG TABLET PO SCH ×2 (08:52→17:44)
[2019-04-21] MEDS: ALBUMIN 25% 25GM 100ML 100 ML IV SCH ×3 (09:00→21:13)
--- NOTE | 2019-04-21 14:05 | NUR ---
CALLED DAUGHTER PIERRE [phone] SHE STATES SHE WANTS TO KNOW IF IT IS ABSOLUTELY NECESSARY FOR PT TO GO TO A FACILITY, I EXPLAINED SHE WILL NEED 2 WEEKS OF ABX PER THE DOCTOR, SHE STATES SHE WILL COME TO HOSPITAL AND GET THE INFORMATION FOR THE FACILITIES BUT IS NOT CERTAIN ABOUT THIS AN OPTION FOR CARE.
[2019-04-21 16:24] LABS: BODY FLUID TYPE PERITONEAL
[2019-04-21 16:26] LABS: BODY FLUID APPEARANCE CLOUDY; BODY FLUID COLOR RED
[2019-04-21 16:27] LABS: RBC,BODY FLUID 1666 cells/uL; WBC,BODY FLUID 50 cells/uL
--- NOTE | 2019-04-21 16:51 | NUR ---
PARACENTESIS COMPLETE. VS TAKEN AND ARE STABLE PT IS IN NO S.S OF DISTRESS. WILL CONTINUE TO MONITOR
[2019-04-21 17:25] LABS: LYMPHOCYTES,BODY FLUID 15 %; MONO/MACROPHG,BODY FLUID 2 %; OTHER CELLS,BODY FLUID 75 %
[2019-04-21 17:26] LABS: NEUTROPHILS,BODY FLUID 8 %
--- NOTE | 2019-04-21 17:28 | Diagnostic Imaging Report ---
PROCEDURE: Ultrasound-guided diagnostic and therapeutic paracentesis Procedural Personnel Attending physician(s): Juma Hirsch MD Pre-procedure diagnosis: Ascites Post-procedure diagnosis: Same Indication: Ascites with pain or pressure symptoms Additional clinical history: None Complications: No immediate complications. IMPRESSION: Ultrasound-guided paracentesis with drainage of 7200 mL of serous fluid. Samples sent for laboratory analysis. Plan: Resume care by clinical team. PROCEDURE SUMMARY: - Limited abdominal ultrasound - Ultrasound-guided paracentesis - Additional procedure(s): None PROCEDURE DETAILS: Pre-procedure Consent: Informed consent for the procedure including risks, benefits and alternatives was obtained and time-out was performed prior to the procedure. Preparation: The site was prepared and draped using maximal sterile barrier technique including cutaneous antisepsis. Anesthesia/sedation Level of anesthesia/sedation: No sedation Anesthesia/sedation administered by: Not applicable Initial abdominal ultrasound Initial abdominal ultrasound was performed. Findings: Large ascites. A safe window for paracentesis was identified. Paracentesis Local anesthesia was administered. The peritoneal cavity was accessed and fluid return confirmed position. Ascites was drained. The catheter was then removed, and a sterile bandage was applied. Paracentesis access technique: Real-time ultrasound guidance Catheter placed: 5F Yueh Post-drainage ultrasound: No visible ascites Additional Details Additional description of procedure: None Equipment details: None Specimens removed: Abdominal fluid Estimated blood loss (mL): Less than 10 Standardized report: [email or web address] Attestation Signer name: Juma Hirsch MD I attest that I was present for the entire procedure. I reviewed the stored images and agree with the report as written. Signed by: Juma Hirsch MD on 04/21/2019 5:24 PM
--- NOTE | 2019-04-21 19:10 | NUR ---
REPORT TAKEN FROM MORNING RN.STABLE CONDITION.SITTING IN THE BED.FAMILY MEMBER AT BED SIDE.
[2019-04-21] MEDS: INSULIN GLARGINE 100 UNITS/ML VIAL SQ SCH (21:10)
[2019-04-21] MEDS: DONEPEZIL HCL 5 MG TAB PO SCH (21:13)
[2019-04-21] MEDS: TRAMADOL HCL 50 MG TAB PO PRN (23:52)
[2019-04-22 04:00] VITALS: BP 129/72
[2019-04-22] MEDS: OCTREOTIDE ACETATE 0.1 MG/ML 100MCG AMP SQ SCH ×2 (05:49→14:00)
[2019-04-22 06:35] LABS: BASOPHILS # (AUTO) 0.1 (0.0-0.1); BASOPHILS % 0.7 % (0.0-1.0); EOSINOPHILS # (AUTO) 0.9 (0.0-0.4); HEMATOCRIT 30.7 % (38.2-49.6); HEMOGLOBIN 9.8 g/dL (14.0-18.0); LYMPHOCYTES # (AUTO) 1.1 (1.0-3.2); MEAN CORPUSCULAR HEMOGLOBIN 31.2 pg (28-32); MEAN CORPUSCULAR HGB CONC 31.9 g/dL (31-35); MEAN CORPUSCULAR VOLUME 97.8 fL (81-99); MONOCYTES # (AUTO) 0.9 (0.2-0.8); MONOCYTES % 10.8 % (4.4-11.3); NEUTROPHILS # (AUTO) 5.5 (2.1-6.9); NEUTROPHILS % 64.1 % (38.7-80.0); PLATELET COUNT 137 x10e3/uL (140-360); RED BLOOD COUNT 3.14 x10e6/uL (4.3-5.7); RED CELL DISTRIBUTION WIDTH 18.2 % (11.7-14.4)
[2019-04-22 07:03] LABS: ANION GAP 15.1 mmol/L (8-16); CALCIUM 8.9 mg/dL (8.4-10.2); CREATININE, SERUM 3.5 mg/dL (0.72-1.25); POTASSIUM 4.1 mmol/L (3.5-5.1)
--- NOTE | 2019-04-22 07:13 | NUR ---
Bed side shift report given to the oncoming Rn.stable condition.
--- NOTE | 2019-04-22 07:20 | NUR ---
MD NAVARRETE INTO SEE PT, DISCUSSED POC
[2019-04-22] MEDS: INSULIN LISPRO 100 UNIT/1 ML 3ML VIAL SQ SCH ×2 (07:30→11:30)
[2019-04-22] MEDS: METOCLOPRAMIDE HCL 10 MG TAB PO SCH ×2 (08:30→12:30)
[2019-04-22] MEDS: PANTOPRAZOLE SOD 40 MG TABEC PO SCH (08:30)
[2019-04-22 08:31] VITALS: BP 125/69
[2019-04-22] MEDS: ALBUMIN 25% 25GM 100ML 100 ML IV SCH (08:54)
[2019-04-22] MEDS: FOLIC ACID/CYANOCOB/PYRIDOXINE TAB PO SCH (08:55)
[2019-04-22] MEDS: SODIUM BICARBONATE 650 MG TAB PO SCH (08:55)
[2019-04-22] MEDS: CALCITRIOL 0.25 MCG CAP PO SCH (08:55)
[2019-04-22] MEDS: NIFEDIPINE CR 30 MG TAB PO SCH (08:55)
[2019-04-22] MEDS: GABAPENTIN 100 MG CAP PO SCH (08:55)
[2019-04-22] MEDS: RIFAXIMIN 550 MG TABLET PO SCH (08:55)
[2019-04-22] MEDS: ALLOPURINOL 100 MG TAB PO SCH (08:55)
[2019-04-22] MEDS: LACTULOSE SYRUP 20 GM/30 ML UDC PO SCH (08:55)
[2019-04-22 09:00] VITALS: BP 125/69
--- NOTE | 2019-04-22 09:01 | NUR ---
PT TOLERATING PO , DENIES PAIN AT THIS TIME, FAMILY AT SIDE, CALL LIGHT WITHIN REACH
[2019-04-22] MEDS: CEFTRIAXONE SOD 1 GM/NS 50 ML 50 ML IV SCH (10:00)
--- NOTE | 2019-04-22 12:00 | NUR ---
EDUCATED ABOUT IMM, SIGNED, FILED IN CHART, WITH COPY LEFT WITH FAMILY AT BEDSIDE.
[2019-04-22 12:55] VITALS: BP 145/80
--- NOTE | 2019-04-22 13:37 | NUR ---
Nutrition LOS Note RD Recommendation(s) for Physician / Nutrition Prescription: - Rec adding [id number] to current diet as medically appropriate Plan of Care: Patient has been screened and assessed for nutrition risk. At this time, the patient does not pose any nutrition risk. No further nutrition intervention is warranted at this time. Will re-evaluate if consulted by medical staff. Nutrition reason for involvement: LOS Primary Dx: Acute kidney failure on chronic kidney disease, stage 3, CHF, cirrhosis PMH: RITTER, advanced liver cirrhosis, CKD 3, type 2 diabetes mellitus, hypertension, CAD, and congestive heart failure Ht: 66in Wt: 203lb BMI: 32.8kg/m2 IBW: 142lb +/- 10% RD Assessment: (04/22) 64yo M, who was admitted for liver failure. Pt had paracentesis x2 with 7.9L and 7.2L fluids drawn. Visited pt in the room. Pt with fair appetite. PCT recorded 75-100% meal intake. Pt complained of some nausea but no vomiting episode noted. No chewing or swallowing difficulty. Unknown weight history due to fluid retention. RD provided education regarding low sodium diet. All questions have been answered. Current diet: renal/ 2g sodium diet Malnutrition Evaluation (04/22/2019) The patient does not meet criteria for a specified degree of malnutrition at this time. Will re-evaluate at follow-up as appropriate. Diet Education Needs Assessment: Diet education indicated, family was agreeable. Learner(s): pt and family Time spent: 15minutes Barriers: No barriers identified. Cultural/Language Modifications: Daughter speaks some [place] Citizen. Grenadian handout was given. Readiness: Acceptance Method: Handout, explanation Topics: Low sodium nutrition therapy Understanding/Compliance: Expect fair understanding/compliance from pt. Will benefit from reinforcement. Nutrition Care Level: Low Signed by Graciela Llanos, , RD, LD
[2019-04-22] MEDS ORDERED: XIFAXAN550 MG PO (14:33)
[2019-04-22] MEDS ORDERED: CIPRO500 MG PO (14:34)
--- NOTE | 2019-04-22 15:33 | NUR ---
DISCHARGE INSTRUCTIONS REVIEWED WITH PT AND FAMILY, VERBALIZED UNDERSTANDING, WHEELED OFF UNIT VIA WC FOR DISCHARGE, NO CHANGE IN CONDITION
--- NOTE | 2019-04-22 18:40 | Discharge Summary ---
PRIMARY CARE PHYSICIAN: Summer Toussaint MD. CONSULTANTS: 1. Dr. Jose Diaz. 2. Dr. Ron Del Angel. FINAL DIAGNOSES: 1. Recurrent abdominal ascites secondary to advanced liver disease, status post two time paracentesis, each time approximately 8 L. 2. Chronic kidney disease stage 4, associated with acute kidney injury secondary to diuretic usage. 3. Early hepatorenal syndrome. 4. Possible early spontaneous bacterial peritonitis. SUMMARY: The patient is a 64-year-old male with status post paracentesis his 3rd within 2-3 weeks. The patient was previously at [facility] and he had a paracentesis. He came here, had first episode within a day or two after admission and then recurrent now with another paracentesis with approximately 8 L of fluid obtained. The patient is doing much better. He seemed to be stable now. Abdomen is soft. Because of his chronic kidney disease stage 4, all his diuretic has been recommended by Dr. Diaz for discontinue. The patient to follow up with him closely as an outpatient. The patient may need to repeat the paracentesis. The fluid show significant WBC without bacteria. To cover for his possible bacteria infection of the fluid, the patient was receiving rifaximin and antibiotics. The patient will get Cipro 250 mg twice a day for seven days on discharge. We will continue with Rifaximin. All his diuretic furosemide, metolazone, spironolactone, pravastatin, and lisinopril as well discontinued. He will resume his other home medication. The patient is stable discharged home today. Neto Barrett MD JT/MODL /[id number] cc: Summer Toussaint MD
== END 2019-04-22 14:56 | disposition home or self-care (01) | DRG 432 ==
LOC: ER 19:19 → ERHOLD 21:44 → MED/SURG 22:28
PROVIDERS: ADMIT Internal Medicine; ATTEND Internal Medicine
PROC: 0W9G3ZZ Drainage of Peritoneal Cavity, Percutaneous Approach (ICD-10-PCS; 2019-04-17)
PROC: 0W9G3ZZ Drainage of Peritoneal Cavity, Percutaneous Approach (ICD-10-PCS; principal; 2019-04-21)
DX: K74.60 Unspecified cirrhosis of liver (principal); K65.2 Spontaneous bacterial peritonitis; N17.9 Acute kidney failure, unspecified; N18.4 Chronic kidney disease, stage 4 (severe); R18.8 Other ascites; I13.0 Hypertensive heart and chronic kidney disease with heart failure and stage 1 through stage 4 chronic kidney disease, or unspecified chronic kidney disease; E11.22 Type 2 diabetes mellitus with diabetic chronic kidney disease; E11.69 Type 2 diabetes mellitus with other specified complication; K75.81 Nonalcoholic steatohepatitis (NASH); I25.10 Atherosclerotic heart disease of native coronary artery without angina pectoris; Z95.1 Presence of aortocoronary bypass graft; K59.00 Constipation, unspecified; T50.2X5A Adverse effect of carbonic-anhydrase inhibitors, benzothiadiazides and other diuretics, initial encounter; I50.9 Heart failure, unspecified
CPT/HCPCS: 36415; 49083; 74176; 74470; 80048; 80053; 81001; 82040; 82140; 82550; 82553; 82575; 82948; 83735; 84100; 84300; 84484; 85025; 85610; 85730; 87070; 87086; 87205; 88112; 88305; 89051; 93306; 96374; 99284; C1729; J0696; J1815; J1817; J2354; J2765; J7030; J7799; P9047